=== PATIENT | female | born 1965 | race Caucasian/White ===

== ENCOUNTER 2019-07-06 11:18 | Emergency (ER) | payer MEDICAID, SELFPAY ==
[2019-07-06 11:19] VITALS: BP 158/117; PULSE 90; RESP 16; TEMP 37; BMI 25.0
--- NOTE | 2019-07-06 12:09 | ED.VISSUMM ---
- ER Visit Summary Date of Service: 07/06/19 Chief Complaint: Back pain History of Present Illness: The patient is a 54 F who presents with back pain that has been getting worse over the past 3 days. Patient states she has a history of sciatica and states this feels similar to prior exacerbations of her sciatica. Patient states the pain is over the left lower lumbar area and radiates down her left leg. Patient denies any paresthesias or weakness. Patient denies any bowel or bladder changes. Patient denies any saddle anesthesia. Patient denies any direct trauma but states she was sitting on the basement floor helping her grandson put a model train together recently. Physical Examination: Vital signs are stable. Patient is afebrile. Patient is in no acute distress. Musculoskeletal exam reveals tenderness and mild spasm over the left lumbar paraspinal muscles and sciatic notch. There is no midline tenderness. There is no bony crepitance or step-off. Range of motion was limited in all motions of the lumbar spine secondary to pain. Strength is 5/5 bilaterally lower extremities. There are no sensory deficits noted. Deep tendon reflexes are 2+/4 bilaterally in the lower extremities. Emergency Department Course and Treatment: Patient was given injections of Toradol and Norflex here. Patient was given a prescription for ibuprofen 800 mg. Patient was instructed to take this every 8 hours as needed for pain. Patient was instructed to use ice to the area. Patient was instructed to follow-up with her primary care physician in 5 to 7 days. Patient understood and was agreeable with the plan. All questions were answered. Disposition: Discharge home Impression: Sciatica This note was generated with [employer] dictation software. It may contain incorrect words, spelling, and punctuation that were not noted in review of the chart prior to signing ED Disposition - Plan for ED Patient: Disposition: Home or Assisted Living Diagnosis: Sciatica Instructions: BACK PAIN w/ SCIATICA Prescriptions: Ibuprofen 800 mg PO Q8H PRN PRN #20 tab PRN Reason: Pain Score 1-10/10 Prescription Printed Referrals: Care Physician,No Primary [Primary Care Provider] -
[2019-07-06 12:25] VITALS: O2SAT 97
[2019-07-06] MEDS: Ketorolac 60 MG/2 ML Vial IM (12:25)
[2019-07-06] MEDS: Orphenadrine 60 MG/2 ML Ampul IM (12:25)
[2019-07-06 12:28] VITALS: RESP 18
== END 2019-07-06 12:53 | disposition home or self-care (01) ==
PROVIDERS: Emergency Provider Emergency Medicine
DX: M54.42 Lumbago with sciatica, left side (principal); F17.200 Nicotine dependence, unspecified, uncomplicated
CPT/HCPCS: 94760; 96372; 99282

== ENCOUNTER 2020-09-15 13:41 | Emergency (ER) | payer MEDICAID, SELFPAY ==
[2020-09-15 13:43] VITALS: BP 153/89; PULSE 96; RESP 20; TEMP 36.1; O2SAT 96; BMI 26.2
--- NOTE | 2020-09-15 14:16 | EDS_ITS ---
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 States she got a recent Covid vaccination. States she developed sores in her mouth for which he put her on antibiotic. She took her antibiotic yesterday and fell he got stuck in the bottom of her esophagus. She had nausea and vomiting. She states she is able to swallow liquids but it feels like there is something in the base of her esophagus. She denies any fever. Prior similar symptoms: No Recent Illness/Hospitalization: No PFSH PFSH Home Medications ibuprofen 800 mg PO Q8H PRN PRN #20 tab 07/06/19 [Rx Last Taken Unknown] omeprazole 40 mg PO DAILY #30 cap 09/15/20 [Rx Last Taken Unknown] Allergy/AdvReac Type Severity Reaction Status Date / Time latex Allergy Rash Verified 09/15/20 13:42 Social History Smoking Status: Current every day smoker ROS ROS ED Review of Systems ROS Unobtainable: Denies due to encephalopathy Constitutional Constitutional ED: Denies chills or fever(s) Eyes Eyes: Denies change in vision ENT ENT ED: Denies rhinorrhea or sore throat Cardiovascular Cardiovascular: Denies chest pain or palpitations Respiratory/Chest Respiratory/Chest: Denies cough or dyspnea Gastrointestinal Gastrointestinal: Reports diarrhea, nausea and vomiting Genitourinary Genitourinary ED: Denies dysuria or hematuria Musculoskeletal Musculoskeletal: Denies arthralgias or myalgias Integumentary Denies rash Neurologic Neurologic: Denies weakness Psychiatric Psychiatric: Denies suicidal thoughts Endocrine Endocrinology: Denies polydipsia Allergic/Immunologic Allergic/Immunologic ED: Denies urticaria EXAM Physical Exam Narrative Exam Narrative: Middle-aged female no acute distress. Vital signs are stable afebrile. I gave the patient a glass of water and she was able to swallow without any difficulty. No trouble breathing. No vomiting. No change in her voice. She has completely normal oral mucous membranes. There is no lesions. No stridor. No drooling. She swallowed a glass of water easily. Const Vital Signs: 09/15/20 13:43 Temperature 97 F L Temperature Source Temporal Pulse Rate 96 Respiratory Rate 20 H Blood Pressure 153/89 H Blood Pressure Mean 110 Pulse Ox 96 Oxygen Delivery Method Room Air Positive well nourished and well developed General Appearance ED: well developed HEENT trauma and tenderness Eyes PERRL and EOMs intact bilaterally Neck no lymphadenopathy, supple and no JVD Chest Wall inspection of chest normal Resp normal respiratory effort and clear to auscultation bilaterally Cardio regular rate, regular rhythm and no murmurs GI normal to inspection, nondistended, normoactive bowel sounds, non-tender, non- distended and no masses Auscultation: normoactive bowel sounds Palpation: soft Back/Spine no CVA tenderness General Back: Negative for CVA tenderness Extremity normal to inspection General Extremety ED: Yes tenderness Neuro oriented x3 and CN's II-XII intact bilaterally Sensorium / Orientation: alert Psych mental status grossly normal Mood & Affect: anxious Skin no rashes or lesions noted and no wounds MDM MDM MDM Narrative Medical decision making narrative: Patient had trouble swallowing a pill. However she can swallow now easily. She is having no trouble breathing. She will be placed on a gastroesophageal reflux medication and outpatient follow-up. She will be referred to a primary care physician because at this time she has none. Discharge Plan Triage Chief Complaint: Foreign Body ED Provider: Kayden Oneill Dx/Rx/DC Orders Instructions: ED Esophageal Foreign Body, Resolved Prescriptions: New omeprazole 20 mg capsule,delayed release(DR/EC) 40 mg PO DAILY Qty: 30 RF: 0 No Action ibuprofen 800 MG tablet 800 mg PO Q8H PRN PRN (Reason: Pain Score 1-10/10) Qty: 20 RF: 0 Primary Care Provider: Care Physician,No Primary Referrals: Lindy Nelson MD [STAFF PHYSICIAN] - As soon as possible Care Physician,No Primary [Primary Care Provider] - Activity Restrictions/Additional Instructions: If you continue trouble swallowing call and follow-up with Dr. Lindy Nelson and she can discuss with you possible evaluation such as upper endoscopy. Continue the Prilosec daily which should help with reflux and should help with the symptoms. Return if unable to swallow. Disposition Disposition: Home, self care
[2020-09-15 14:41] VITALS: BP 153/89; PULSE 96; RESP 18; O2SAT 96
== END 2020-09-15 14:42 | disposition home or self-care (01) ==
PROVIDERS: Emergency Provider Emergency Medicine
DX: T18.198A Other foreign object in esophagus causing other injury, initial encounter (principal); X58.XXXA Exposure to other specified factors, initial encounter; Y93.9 Activity, unspecified; Y92.9 Unspecified place or not applicable; F17.200 Nicotine dependence, unspecified, uncomplicated; Z85.831 Personal history of malignant neoplasm of soft tissue
CPT/HCPCS: 99282

== ENCOUNTER → 2021-10-09 | Outpatient (CLI) | payer MEDICAID, SELFPAY ==
[2021-10-09 16:33] LABS: Absolute Lymphocyte Count 1.53 X10^3/uL (0.83-4.51); Absolute Neutrophil Count 4.7 X10^3/uL (2.0-7.7); Basophil# 0.06 X10^3/uL; Basophil% 0.9 % (0-1); Eosinophil# 0.07 X10^3/uL; Hematocrit 47.8 % (37-47); Hemoglobin 15.7 g/dL (12.0-15.0); Lymphocyte # 1.53 X10^3/ul (0.83-4.51); Lymphocyte % 21.9 % (19-41); Mean Corp Hgb Conc 32.8 g/dL (32-36); Mean Corpuscular Hgb 30.3 pg (27.0-32.0); Mean Corpuscular Volume 92.3 fL (81-99); Mean Platelet Vol. 10.5 fl (6.2-12.0); Monocyte# 0.58 X10^3/uL; Monocyte% 8.3 % (0-10); NRBC Flagged by Analyzer 0 % (0-5); Neutrophil # 4.73 X10^3/uL (2.7-7.7); Neutrophil % 67.5 % (47-70); Platelet Count 221 K/mm3 (150-450); RBC Distribution Width CV 12.6 % (11.6-14.6); Red Blood Count 5.18 M/mm3 (4.2-5.4)
[2021-10-09 20:47] LABS: ALB/GLOB Ratio 1.4 RATIO (0.9-2.4); AST(SGOT) 23 U/L (15-37); Alanine Aminotransfer ALT/SGPT 32 U/L (13-56); Albumin, Serum 3.8 g/dL (3.2-5.0); Alkaline Phosphatase 109 U/L (45-117); Anion Gap 6 (5-15); BUN 25 mg/dL (7-18); BUN/Creat Ratio 22.1 RATIO (10-20); Calcium,Total 9.5 mg/dL (8.5-10.1); Chloride 109 mmol/L (98-107); Cholesterol 192 mg/dL (200); Creatinine, Serum 1.13 mg/dL (0.55-1.02); EST Glomerular Filtration Rate 53 mL/min (>60); Est Glom Filt Rate - Afr Amer 64 mL/min (>60); Globulin 2.7 g/dL (2.2-4.2); Glucose 93 mg/dL (74-106); High Density Lipoprotein 77 mg/dL; Potassium 4.2 mmol/L (3.5-5.1); Protein, Total 6.5 g/dL (6.4-8.2); Sodium Level 144 mmol/L (136-145); Triglycerides 66 mg/dL; Very Low Density Lipoprotein 13 mg/dL (5-40)
== END | disposition home or self-care (01) ==
LOC: BIMLAB 15:34
PROVIDERS: PCP Internal Medicine; Referring Provider Internal Medicine; Visit Provider Internal Medicine
DX: I10 Essential (primary) hypertension (principal)
CPT/HCPCS: 36415; 80053; 80061; 85025

== ENCOUNTER → 2022-07-09 | Outpatient (CLI) | payer MEDICAID, SELFPAY ==
--- NOTE | 2022-07-10 13:48 | PFT ---
INTRODUCTION: The patient is a 57-year-old female that presents for pulmonary function studies secondary to a diagnosis of shortness of breath. Respiratory therapy reported good patient effort. Bronchodilators were used during testing. INTERPRETATION: Forced expiration spirometry demonstrates the presence of a severe large airways obstructive ventilatory defect. There was a significant response to aerosolized bronchodilators. Spirograms are of good quality but do not plateau indicating slow emptying of the lungs. Body plethysmography was performed and revealed an elevated RV to 186% of predicted, indicative of underlying air trapping. Diffusing capacity by single breath CO was within normal limits. IMPRESSION: Partially reversible severe large airways obstructive ventilatory defect with associated air trapping.
== END | disposition home or self-care (01) ==
LOC: PSN 12:30
PROVIDERS: PCP Internal Medicine; Referring Provider Internal Medicine; Visit Provider Internal Medicine
DX: R06.02 Shortness of breath (principal); Z72.0 Tobacco use; R00.2 Palpitations
CPT/HCPCS: 93225; 93226; 94060; 94726; 94729

== ENCOUNTER 2022-07-18 13:16 | Emergency (ER) | payer MEDICAID, SELFPAY ==
[2022-07-18 13:16] VITALS: BP 157/93; PULSE 75; RESP 16; TEMP 36.6; O2SAT 99; BMI 22.7
--- NOTE | 2022-07-18 14:51 | ED.RN ---
PT NO LONGER IN THE LOBBY, RESTROOM, OR OUTSIDE WHEN HER NAME WAS CALLED TO BE SEEN.
== END 2022-07-18 14:05 | disposition left against medical advice (07) ==
LOC: ED 14:52
PROVIDERS: PCP Internal Medicine
DX: S06.9XAA Unspecified intracranial injury with loss of consciousness status unknown, initial encounter (principal)

== ENCOUNTER → 2022-11-21 | Outpatient (CLI) | payer MEDICAID, SELFPAY ==
[2022-11-21 16:42] LABS: Absolute Lymphocyte Count 1.28 X10^3/uL (0.83-4.51); Absolute Neutrophil Count 4.8 X10^3/uL (2.0-7.7); Basophil# 0.08 X10^3/uL; Basophil% 1.2 % (0-1); Eosinophil# 0.06 X10^3/uL; Eosinophils% 0.9 % (0-5); Hematocrit 47.5 % (37-47); Hemoglobin 15.8 g/dL (12.0-15.0); Lymphocyte # 1.28 X10^3/ul (0.83-4.51); Lymphocyte % 18.9 % (19-41); Mean Corp Hgb Conc 33.3 g/dL (32-36); Mean Corpuscular Volume 90.3 fL (81-99); Mean Platelet Vol. 10.5 fl (6.2-12.0); Monocyte# 0.51 X10^3/uL; Monocyte% 7.5 % (0-10); NRBC Flagged by Analyzer 0 % (0-5); Neutrophil # 4.83 X10^3/uL (2.7-7.7); Neutrophil % 71.4 % (47-70); Platelet Count 219 K/mm3 (150-450); RBC Distribution Width CV 13.1 % (11.6-14.6); Red Blood Count 5.26 M/mm3 (4.2-5.4); White Blood Count 6.8 K/mm3 (4.4-11.0)
[2022-11-21 16:56] LABS: ALB/GLOB Ratio 1.1 RATIO (0.9-2.4); AST(SGOT) 23 U/L (15-37); Alanine Aminotransfer ALT/SGPT 41 U/L (13-56); Albumin, Serum 3.7 g/dL (3.2-5.0); Alkaline Phosphatase 139 U/L (45-117); Anion Gap 8 (5-15); BUN 22 mg/dL (7-18); BUN/Creat Ratio 23.5 RATIO (10-20); Calcium,Total 9.2 mg/dL (8.5-10.1); Chloride 107 mmol/L (98-107); Cholesterol 172 mg/dL (200); Creatinine, Serum 0.94 mg/dL (0.55-1.02); EST Glomerular Filtration Rate 66 mL/min (>60); Est Glom Filt Rate - Afr Amer 80 mL/min (>60); Globulin 3.3 g/dL (2.2-4.2); Glucose 159 mg/dL (74-106); High Density Lipoprotein 95 mg/dL; Potassium 4.2 mmol/L (3.5-5.1); Sodium Level 140 mmol/L (136-145); Triglycerides 63 mg/dL; Very Low Density Lipoprotein 13 mg/dL (5-40)
[2022-11-22 15:06] LABS: Hemoglobin A1c 5.5 % (3.8-5.6)
[2022-11-23 05:07] LABS: Alpha Antitrypsin Serum 170 mg/dL (101-187)
== END | disposition home or self-care (01) ==
LOC: BIMLAB 14:52
PROVIDERS: PCP Internal Medicine; Referring Provider Internal Medicine; Visit Provider Internal Medicine
DX: I10 Essential (primary) hypertension (principal); J44.9 Chronic obstructive pulmonary disease, unspecified; R73.9 Hyperglycemia, unspecified
CPT/HCPCS: 36415; 80053; 80061; 82103; 83036; 85025

== ENCOUNTER → 2023-02-10 | Outpatient (CLI) | payer MEDICAID, SELFPAY ==
--- NOTE | 2023-02-10 14:14 | RAD_ITS ---
STUDY: X-RAY - RIGHT ANKLE REASON FOR EXAM: Female, 57 years old. Pain and swelling following injury. TECHNIQUE: 3 view(s) of the ankle. COMPARISON: None. FINDINGS: Normal visualized distal tibia and fibula. Normal medial and lateral malleoli. Normal tibiotalar articulation and ankle mortise. Normal visualized talus and calcaneus. The visualized subtalar, talonavicular, calcaneocuboid and tarsal articulations are normal. The soft tissue structures are unremarkable. RAD/Ankle min 3 Views IMPRESSION: Normal x-ray examination of the ankle. Electronically Signed: Randolph Pineda MD at 14:37 EDT ,
--- NOTE | 2023-02-10 14:15 | RAD_ITS ---
STUDY: X-RAY - RIGHT FOOT CLINICAL: Female, 57 years old. Pain and swelling following injury. TECHNIQUE: 3 view(s) of the foot. COMPARISON: None. FINDINGS: Normal talus, calcaneus, and tarsal bones. Normal visualized subtalar, talonavicular, calcaneocuboid, tarsal and tarsometatarsal articulations. Normal metatarsi. There is degenerative arthrosis of the metatarsophalangeal joint of the hallux . Normal tibial and fibular sesamoid bones. Normal interphalangeal joint of the great toe. Normal phalanges of the great toe. Normal second through fifth metatarsophalangeal joints. Normal interphalangeal joints and phalanges of the lesser toes. The soft tissue structures are unremarkable. RAD/Foot min 3 Views IMPRESSION: Degenerative changes at the first metatarsophalangeal joint. Electronically Signed: Randolph Pineda MD at 14:38 EDT ,
== END | disposition home or self-care (01) ==
LOC: MTRAD 14:13
PROVIDERS: PCP Internal Medicine; Referring Provider Physician Assistant; Visit Provider Physician Assistant
DX: S99.921A Unspecified injury of right foot, initial encounter (principal)
CPT/HCPCS: 73610; 73630

== ENCOUNTER 2023-06-02 22:39 | Emergency (ER) | payer MEDICAID, SELFPAY ==
[2023-06-02 22:40] VITALS: BP 147/91; PULSE 103; RESP 18; TEMP 36.3; O2SAT 96; BMI 27.3
--- NOTE | 2023-06-02 23:06 | EKG12_ITS ---
Test Reason : SOB Blood Pressure : / mmHG Vent. Rate : 078 BPM Atrial Rate : 078 BPM P-R Int : 148 ms QRS Dur : 084 ms QT Int : 364 ms P-R-T Axes : 073 073 082 degrees QTc Int : 414 ms Normal sinus rhythm with sinus arrhythmia Nonspecific ST and T wave abnormality Abnormal ECG Confirmed by JEOVANY RODGERS, BETTY ([id number]), graphics editor DELORES CARVALHO ([id number]) on 06/04/2023 9:19:06 AM Referred By: Confirmed By:BETTY THAYER MD
[2023-06-02 23:22] VITALS: RESP 16; O2SAT 95
[2023-06-02 23:30] LABS: Absolute Neutrophil Count 7.7 X10^3/uL (2.0-7.7); Eosinophil# 0.02 X10^3/uL; Eosinophils% 0.2 % (0-5); Hematocrit 44.8 % (37-47); Lymphocyte % 11.4 % (19-41); Mean Corp Hgb Conc 33.5 g/dL (32-36); Mean Corpuscular Hgb 29.9 pg (27.0-32.0); Mean Corpuscular Volume 89.2 fL (81-99); Mean Platelet Vol. 10.1 fl (6.2-12.0); Monocyte# 0.75 X10^3/uL; Monocyte% 7.7 % (0-10); NRBC Flagged by Analyzer 0 % (0-5); Neutrophil # 7.68 X10^3/uL (2.7-7.7); Neutrophil % 79.4 % (47-70); Platelet Count 222 K/mm3 (150-450); RBC Distribution Width SD 42.5 fl (35.1-43.9); Red Blood Count 5.02 M/mm3 (4.2-5.4); White Blood Count 9.7 K/mm3 (4.4-11.0)
[2023-06-02 23:48] LABS: Anion Gap 9 (5-15); BUN 24 mg/dL (7-18); BUN/Creat Ratio 22.4 RATIO (10-20); Calcium,Total 10.2 mg/dL (8.5-10.1); Chloride 107 mmol/L (98-107); Creatinine, Serum 1.07 mg/dL (0.55-1.02); EST Glomerular Filtration Rate 56 mL/min (>60); Est Glom Filt Rate - Afr Amer 68 mL/min (>60); Estimated Creatinine Clearance 62.81 ml/min; Glucose 106 mg/dL (74-106); Potassium 3.9 mmol/L (3.5-5.1); Sodium Level 139 mmol/L (136-145)
--- NOTE | 2023-06-02 23:52 | RAD_ITS ---
INDICATION: dyspnea EXAMINATION/TECHNIQUE: X-RAY - XR Chest 2 Views COMPARISON: None. FINDINGS: LINES/DEVICES: None. LUNGS: Hyperexpanded lungs. No pulmonary edema or focal airspace consolidation. No sizable pleural effusion. No pneumothorax detected. MEDIASTINUM AND CARDIOVASCULAR STRUCTURES: Heart size within normal limits. Mediastinal contours unremarkable. BONES AND SOFT TISSUES: No acute findings. RAD/Chest PA and Lateral IMPRESSION: COPD Electronically Signed: Frank Parker MD at 0:22 EST ,
--- OUTSIDE RECORDS SUMMARY | 2023-06-02 23:54 | XMS RPT_ITS | CCD ---
Author Name Unknown Address [address] [place] [address] Organization [facility] Care Team Providers Care Booking Agent Name Role Phone JESUS CORTEZ Unavailable Unavailable ASHLEE KWOK Unavailable Unavailable HAUSTAZ DICKINSON Unavailable Unavailable NO FAMILY DOCTOR, NO FAMILY DOCTOR Unavailable Unavailable AMANAZANIN Admitting Unavailable AMA, NAZANIN Fonseca Attending Unavailable AMANAZANIN Primary Care Unavailable NO, DOCTOR ON Consulting Unavailable AMANAZANIN Admitting Unavailable AMA, NAZANIN Fonseca Attending Unavailable AMANAZANIN Primary Care Unavailable NO, DOCTOR ON Consulting Unavailable Allergies Allergy Classification Reported Allergen(s) Allergy Type Date of Onset Reaction(s) Facility (1 source) Latex; Translations: [LATEX] Propensity to adverse reactions (disorder) [facility] Repository Problems Active Problems Problem Classification Problem Date Documented Da te Episodic/Chronic Fever of unknown origin (3 sources) Fever, unspecified; Translations: [Fever, unspecified] Onset: 12-02-2019 Episodic Immunizations and screening for infectious disease (3 sources) Encounter for screening for other viral diseases; Translations: [Encounter for screening for other viral diseases] Onset: 02-15-2020 Episodic Other lower respiratory disease (1 source) Cough; Translations: [Cough] Onset: 12-02-2019 Episodic Other upper respiratory disease (1 source) Nasal congestion; Translations: [Nasal congestion] Onset: 12-02-2019 Episodic Unclassified (1 source) Rash and other nonspecific skin eruption / R21(ICD-9) Onset: 12-29-2016 Unclassified (1 source) Dermatitis, unspecified / L30.9(ICD-9) Onset: 12-29-2016 Unclassified (1 source) Latex allergy status / Z91.040(ICD-9) Onset: 12-29-2016 Unclassified (1 source) Personal history of malignant neoplasm, unspecified / Z85.9(ICD-9) Onset: 12-29-2016 Past or Other Problems Problem Classification Problem Date Documented Da te Episodic/Chronic Other skin disorders (1 source) Rash and other nonspecific skin eruption; Translations: [Rash and other nonspecific skin eruption] Onset: 12-29-2016 Episodic Results Test Name Value Interpretation Reference Range Facil ity Encounters Encounter Date Encounter Type Care Provider Facility Start: 02-15-2020 End: 02-15-[address] [facility] Start: 12-02-2019 End: 12-02-[address] [facility] Start: 08-13-2017 End: 08-13-2017 Emergency department patient visit JESUS CORTEZ Facility:B Start: 12-29-2016 End: 12-29-2016 Emergency department patient visit TAZ TREVIÑO Facility:[id number] Payers Date Payer Category Payer Medicaid [id number] 1965 Unknown [id number] 1965 Unknown [id number] Unknown [id number] Progress note 12-22-2020 Note Date & Type Note Facility 12-22-2020 Note HNO ID: [id number] Author: Leander Pope APRN.SRINATH Service: ? Author Type: Nurse Practitioner Type: Progress Notes Filed: 12/22/2020 8:10 PM Note Text: Visit Date: December 22, 2020 Patient Name: Ms.Debra Hernan Porter Date of : 1965 MRN/E #: [id number] Chief Complaint Patient presents with: Dental Problem: left upper side of mouth x2 days History of present illness Pierce Porter is a 55 year old female. Presents with complaints of left upper tooth pain that started 2 days ago. Denies having a fever, chills, aches, loss of smell or taste, or fatigue. The tooth has had drainage with foul smelling and tasting pus. She has not seen a dentist in several years. Has not taken anything at home to help with symptoms. PAIN EVALUATION 12/22/20201914 Pain Level: 7 Pain Location: Mouth Description: Aching;Radiating;Pressure Duration Amount of Time: 2 Duration Units: Days Frequency: Continuous Intervention/Comfort measure: Medication Comments: tylenol ALLERGIES Allergen Reactions - Latex No past medical history on file. No past surgical history on file. Social History Tobacco Use - Smoking status: Current Every Day Smoker Packs/day: 1.00 Types: Cigarettes - Smokeless tobacco: Never Used Substance Use Topics - Alcohol use: No - Drug use: No No family history on file. Review of Systems Constitutional: Negative for chills, fever and malaise/fatigue. HENT: Negative for congestion and sore throat. Toothache upper left Respiratory: Negative for cough and shortness of breath. Cardiovascular: Negative for chest pain and palpitations. Gastrointestinal: Negative for nausea and vomiting. Musculoskeletal: Negative for myalgias. Skin: Negative for itching and rash. Neurological: Negative for dizziness, tingling and headaches. Physical Exam Vitals and nursing note reviewed. HENT: Mouth/Throat: Eyes: Extraocular Movements: Extraocular movements intact. Pupils: Pupils are equal, round, and reactive to light. Cardiovascular: Rate and Rhythm: Normal rate and regular rhythm. Pulses: Normal pulses. Heart sounds: Normal heart sounds. Pulmonary: Effort: Pulmonary effort is normal. No respiratory distress. Breath sounds: Normal breath sounds. No wheezing. Skin: General: Skin is warm and dry. Neurological: Mental Status: She is oriented to person, place, and time. BP 126/86 Pulse 97 Temp 98.1 Resp 16 Wt 157 lb 12.8 oz (71.6kg) SpO2 98% Assessment/Plan (K08.89) Toothache (primary encounter diagnosis) -clindamycin (CLEOCIN) 300 mg capsule Take medication as ordered See dentist yarelis Follow up if signs of infection worsen Leander Pope APRN.CNP Discussed above plan with patient. Pt agreeable with above plan. [facility] Summary Purpose Family History No Family History Records FoundNo Family History Records FoundNo Family History Records FoundNo Family History Records FoundNo Family History Records Found Advance Directives No Advanced Directives Records FoundNo Advanced Directives Records FoundNo Advanced Directives Records FoundNo Advanced Directives Records FoundNo Advanced Directives Records Found Additional Source Comments INFORMATION SOURCE (unrecogn ized section and content) DATE CREATED AUTHOR AUTHOR'S ORGANSARAH ATION 11/12/2017 [facility] DATE CREATED AUTHOR AUTHOR'S ORGANIZ ATION 12/11/2019 [facility] DATE CREATED AUTHOR AUTHOR'S ORGANIZ ATION 02/18/2020 [facility] DATE CREATED AUTHOR AUTHOR'S ORGANIZ ATION 06/22/2021 [facility] FOR RECORDS PERTAINING TO PATIENTS WHO ARE OR HAVE BEEN ENROLLED IN A CHEMICAL DEPENDENCY/SUBSTANCEABUSE PROGRAM, SOME INFORMATION MAY BE OMITTED. This clinical summary was aggregated from multiple sources. Caution should be exercised in using it in the provision of clinical care. This summary normalizes information from multiple sources, and as a consequence, information in this document may materially change the coding, format and clinical context of patient data. In addition, data may be omitted in some cases. CLINICAL DECISIONS SHOULD BE BASED ON THE PRIMARY CLINICAL RECORDS. [facility] [facility]. provides no warranty or guarantee of the accuracy or completeness of information in this document.
[2023-06-03] MEDS: Ipratropium/Albuterol Sulfate 3 ML AMPUL.NEB INHALATION ×2 (00:06)
[2023-06-03 00:07] VITALS: PULSE 77; RESP 16
[2023-06-03 01:00] VITALS: O2SAT 98
--- NOTE | 2023-06-03 01:06 | EX.ED.DYSGE1 ---
HPI History of Present Illness Chief Complaint: Shortness of Breath Informant: patient and family Narrative Narrative: Patient is a 58-year-old female with past medical history of COPD and hypertension. She states she quit smoking roughly 1 year ago and was doing well but then developed/contracted COVID and since that time has had difficulty with her breathing. 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 Since that time she has had increased shortness of breath with any type of exertion and therefore comes in for evaluation. [facility] Medical History (Updated 06/03/23 @ 23:[address] Kel Hutson, DO) Back problem Blood glucose elevated Cellulitis of right ankle Cellulitis of right foot COPD (chronic obstructive pulmonary disease) Dyspnea on exertion Grief at loss of child Grief counseling Grief reaction History of COVID-19 Hypertension Palpitations Panic attack Right groin hernia Sarcoma Seasonal allergies Shortness of breath Tobacco abuse Tobacco abuse, in remission Wound of right foot Home Medications blood pressure monitor #1 ea 10/09/21 [Rx Last Taken Unknown] amlodipine 5 mg tablet See Rx Instructions .Route .COMPLEX #90 tabs 11/21/22 [Rx Last Taken Unknown] albuterol sulfate 90 mcg/actuation aerosol inhaler (ProAir HFA) 2 puff inhalation Q6H PRN shortness of breath or wheezing #8.5 grams 01/27/23 [Rx Last Taken Unknown] hydroxyzine HCl 25 mg tablet 25 mg PO TID PRN anxiety #90 tabs 03/04/23 [Rx Last Taken Unknown] budesonide-formoterol HFA 160 mcg-4.5 mcg/actuation aerosol inhaler (Symbicort) 1 puff inhalation Q12H SOB 06/02/23 [History Last Taken Unknown] bupropion HCl 150 mg 24 hr tablet, extended release 150 mg PO QAM #90 tabs 06/02/23 [Rx Last Taken Unknown] nicotine 21 mg/24 hr daily transdermal patch 1 patch transdermal Q24H 06/02/23 [History Last Taken Unknown] ipratropium 0.5 mg-albuterol 3 mg (2.5 mg base)/3 mL nebulization soln 3 ml inhalation 4X/DAY PRN PRN shortness of breath or wheezing #180 mL 06/03/23 [Rx Last Taken Unknown] nebulizer and compressor #1 ea 06/03/23 [Rx Last Taken Unknown] Allergy/AdvReac Type Severity Reaction Status Date / Time latex Allergy Rash Verified 06/02/23 22:40 Family History Mother CVA (cerebral vascular accident) Surgical History H/O: hysterectomy Social History Smoking Status: Current every day smoker tobacco type: cigarettes alcohol intake: never substance use type: does not use what type of physical activity do you participate in: walking ROS ROS ED Constitutional Constitutional ED: Denies chills or fever(s) ENT ENT ED: Denies sore throat Cardiovascular Cardiovascular: Denies chest pain, palpitations or racing heartbeat Respiratory/Chest Respiratory/Chest: Reports cough, dyspnea and dyspnea on exertion Gastrointestinal Gastrointestinal: Denies abdominal pain, diarrhea, nausea or vomiting Genitourinary Genitourinary ED: Denies dysuria Musculoskeletal Musculoskeletal: Denies myalgias Integumentary Denies rash Neurologic Neurologic: Denies headache(s) Hematologic/Lymphatic Hematologic/Lymphatic: Denies easy bleeding or easy bruising EXAM Physical Exam Const Vital Signs: 06/03/23 00:07 06/03/23 01:00 Pulse Rate 77 Respiratory Rate 16 Pulse Ox 98 Positive well nourished and well developed General Appearance ED: well developed; Negative for pallor HEENT Reports moist mucous membranes HEENT Narrative: No tongue or lip swelling no oral lesions no airway edema or compromise Eyes PERRL and EOMs intact bilaterally Neck supple and no JVD Chest Wall palpation of chest normal Resp normal respiratory effort Resp Narrative: Breath sounds are diminished throughout with diffuse expiratory wheeze but no nasal flaring retractions tachypnea or accessory muscle use Cardio regular rate and regular rhythm Extremity normal to inspection Extremity Narrative: No asymmetric edema no pitting edema negative Homans' sign bilaterally Neuro oriented x3, CN's II-XII intact bilaterally and no sensory deficits noted Sensorium / Orientation: alert Motor Exam: strength 5/5 throughout Psych mental status grossly normal Skin no rashes or lesions noted General Skin Exam: Negative for pallor MDM MDM MDM Narrative Medical decision making narrative: Patient presented to the ER hypertensive but otherwise with stable vitals. She reported being exposed to a chemical/dust and then had increased shortness of breath not responding to her home medications. Differential diagnosis is COPD exacerbation secondary to allergen/chemical pneumonitis versus pneumonia versus pneumothorax versus potential acute coronary syndrome. Secondary to this basic labs were obtained as well as EKG and chest x-ray. EKG revealed no signs of dysrhythmia or cardiac ischemia and chest x-ray revealed no signs of acute lung pathology. After receiving 2 DuoNeb's she had improvement in her breath sounds and reported feeling better. We discussed steroid use as well but the patient states she cannot take these based on side effects and therefore they will be held especially as she has had improvement with nebulizer treatment. At this time she is not hypoxic or requiring supplemental oxygen and her workup does not reveal any acute pathology so she is otherwise safe for discharge History & Record Review Discussion w/independent historian: Patient and Family Lab Data Attestation: I reviewed the patient's lab results. Labs: Laboratory Results - last 24 hr 06/02/23 23:18 WBC 9.7 RBC 5.02 Hgb 15.0 Hct 44.8 MCV 89.2 MCH 29.9 MCHC 33.5 RDW Std Deviation 42.5 RDW Coeff of Leobardo 13.0 Plt Count 222 MPV 10.1 Immature Gran % (Auto) 0.300 Neut % (Auto) 79.4 H Lymph % (Auto) 11.4 L Nolan % (Auto) 7.7 Eos % (Auto) 0.2 Baso % (Auto) 1.0 Absolute Neuts (auto) 7.7 Absolute Lymphs (auto) 1.10 Nucleated RBC % 0 Sodium 139 Potassium 3.9 Chloride 107 Carbon Dioxide 23.0 Anion Gap 9 BUN 24 H Creatinine 1.07 H Estim Creat Clear Calc 62.81 Est GFR (MDRD) Af Amer 68 Est GFR (MDRD) Non-Af 56 L BUN/Creatinine Ratio 22.4 H Glucose 106 Calcium 10.2 H Radiography Diagnostic Testing: Clinical Impression(s) from Imaging Studies Chest X-Ray 06/02/23 23:52 IMPRESSION: COPD Electronically Signed: Frank Parker MD at 0:22 EST , Chest x-ray as interpreted by the emergency medicine physician reveals changes consistent with COPD without acute infiltrate pneumothorax or pleural effusion Discharge Plan Triage Chief Complaint: Shortness of Breath ED Provider: Kel Hutson Dx/Rx/DC Orders Clinical Impression: Acute exacerbation of chronic obstructive pulmonary disease, Acute chemical pneumonitis, Hypertension Instructions: COPD: Wheezing and Chest Tightness, ED Understanding Hypersensitivity Pneumonitis Prescriptions: New ipratropium-albuterol 0.5 mg-3 mg(2.5 mg base)/3 mL solution for nebulization 3 ml inhalation 4X/DAY PRN PRN (Reason: shortness of breath or wheezing) Qty: 180 0RF No Action (DME) blood pressure monitor Kit See Rx Instructions .MEDSUPPLY Qty: 1 0RF Rx Instructions: Check blood pressure daily for hypertension I10 amlodipine 5 mg tablet See Rx Instructions .ROUTE .COMPLEX Qty: 90 1RF Dose Instruction: TAKE 1 TABLET BY MOUTH EVERY DAY Rx Instructions: TAKE 1 TABLET BY MOUTH EVERY DAY budesonide-formoterol [Symbicort] 160-4.5 mcg/actuation HFA aerosol inhaler 1 puff INHALATION Q12H Patient Comments: INHALE TWO PUFFS BY MOUTH EVERY TWELVE HOURS nicotine 21 mg/24 hr patch 24 hour 1 patch transdermal Q24H albuterol sulfate [ProAir HFA] 90 mcg/actuation HFA aerosol inhaler 2 puff inhalation Q6H PRN (Reason: shortness of breath or wheezing) Qty: 8.5 3RF hydroxyzine HCl 25 mg tablet 25 mg PO TID PRN (Reason: anxiety) Qty: 90 2RF bupropion HCl 150 mg tablet extended release 24 hr 150 mg PO QAM Qty: 90 1RF (DME) nebulizer and compressor Device See Rx Instructions .Route Qty: 1 0RF Rx Instructions: As directed Primary Care Provider: Rowdy Jiang Referrals: Rowdy Jiang MD [Primary Care Provider] - Disposition Disposition: Home, Self Care Discharge Date/Time: 06/03/23 01:33 Capacity Legal Examiner Rating Clerk Reflex Medical hold order details:: IF a medical hold is selected below, a suggested order for a MEDICAL HOLD will reflex upon signing the document. Next of kin: [place] law dictates a PRIORITY LIST for identifying legal decision-maker/legal next of kin in the following order (LNOK): 1st: The patient?s legal guardian, if any 2nd: The patient's spouse (if status is questionable, consult Risk Management) 3rd: The patient?s adult child(jennifer) (majority, if multiple children) 4th: The patient?s parents 5th: The patient?s adult siblings (majority, if multiple children siblings)
== END 2023-06-03 01:33 | disposition home or self-care (01) ==
PROVIDERS: Emergency Provider Emergency Medicine; PCP Internal Medicine; Visit Provider Emergency Medicine
DX: T65.891A Toxic effect of other specified substances, accidental (unintentional), initial encounter (principal); J68.0 Bronchitis and pneumonitis due to chemicals, gases, fumes and vapors; I10 Essential (primary) hypertension; Z79.899 Other long term (current) drug therapy; Z90.710 Acquired absence of both cervix and uterus; F17.290 Nicotine dependence, other tobacco product, uncomplicated
CPT/HCPCS: 71046; 80048; 85025; 93005; 94640; 94760; 99284; A4216

== ENCOUNTER → 2023-06-20 | Outpatient (CLI) | payer MEDICAID, SELFPAY ==
--- OUTSIDE RECORDS SUMMARY | 2023-06-20 18:34 | XMS RPT_ITS | CCD ---
Author Name Unknown Address [address] [place] [address] Organization [facility] Care Team Providers Care Big Data Solutions Architect Name Role Phone JESUS CORTEZ Unavailable Unavailable ASHLEE KWOK Unavailable Unavailable HAUSTAZ DICKINSON Unavailable Unavailable NO FAMILY DOCTOR, NO FAMILY DOCTOR Unavailable Unavailable AMANAZANIN ELLIOTT Admitting Unavailable AMA, NAZANIN Fonseca Attending Unavailable AMANAZANIN Primary Care Unavailable NO, DOCTOR ON Consulting Unavailable AMANAZANIN Admitting Unavailable AMA, NAZANIN Fonseca Attending Unavailable AMANAZANIN Primary Care Unavailable NO, DOCTOR ON Consulting Unavailable Allergies Allergy Classification Reported Allergen(s) Allergy Type Date of Onset Reaction(s) Facility (1 source) Latex; Translations: [LATEX] Propensity to adverse reactions (disorder) [facility] Repository Problems Active Problems Problem Classification Problem [...] Start: 02-15-2020 End: 02-15-2020 Patient encounter procedure [facility] Start: 12-02-2019 End: 12-02-2019 Patient encounter procedure [facility] Start: 08-13-2017 End: 08-13-2017 Emergency department patient visit JESUS CORTEZ Facility:B Start: 12-29-2016 End: 12-29-2016 Emergency department patient visit TAZ TREVIÑO Facility:[id number] Payers Date Payer Category Payer Medicaid [id number] 1965 Unknown [id number] 1965 Unknown [id number] [id number] Unknown [id number] Progress note 12-22-2020 Note Date & Type Note Facility 12-22-2020 Note HNO ID: [id number] Author: Leander Pope APRN.SRINATH Service: ? Author Type: Nurse Practitioner Type: Progress Notes Filed: 12/22/2020 8:10 PM Note Text: Visit Date: December 22, 2020 Patient Name: Ms.Debra Hernan Porter Date of : 1965 MRN/E #: [id number] Chief Complaint Patient presents with: Dental Problem: [...] with patient. Pt agreeable with above plan. [facility] Summary Purpose Family History No Family History [...] DATE CREATED AUTHOR AUTHOR'S ORGANSARAH ATION 11/12/2017 [facility] DATE CREATED AUTHOR AUTHOR'S ORGANIZ ATION 12/11/2019 [facility] DATE CREATED AUTHOR AUTHOR'S ORGANIZ ATION 02/18/2020 [facility] DATE CREATED AUTHOR AUTHOR'S ORGANIZ ATION 06/22/2021 [facility] FOR RECORDS PERTAINING TO PATIENTS WHO ARE [...] BE BASED ON THE PRIMARY CLINICAL RECORDS. [employer] [facility]. provides no warranty or guarantee of the accuracy or completeness of information in this document.
== END | disposition home or self-care (01) ==
PROVIDERS: PCP Internal Medicine; Visit Provider Physician Assistant Surgical
DX: N39.0 Urinary tract infection, site not specified (principal)
CPT/HCPCS: 87086; 87088

== ENCOUNTER → 2023-06-23 | Outpatient (CLI) | payer MEDICAID, SELFPAY ==
[2023-06-23 14:17] LABS: Mucous, Urine 0 SEEN /hpf (<or=2+); Red Blood Cells-Urine 0 SEEN /hpf (0-5)
[2023-06-23 15:31] LABS: Color, Urine Yellow (Yellow); Glucose, Dipstick Normal (Normal); Ketone-Dipstick Negative (Negative); Leukocyte Esterase-Dipstick 100 /ul (Negative); Nitrite-Dipstick Negative (Negative); Occult Blood-Urine Negative /ul (Negative); Protein-Dipstick 15 mg/dl (Negative); Specific Gravity, Urine 1.015 (1.002-1.030); Urine Bilirubin Dipstick Negative (Negative); Urine Clarity Clear (Clear); Urine Urobilinogen Normal (Normal); Urine pH 6.5 (5.0 - 8.0)
[2023-06-23 16:02] LABS: Bacteria 1+ /hpf (None Seen); Squamous Epithelial Cells - UA 0-5 SEEN /hpf (5-10); White Blood Cells 5-10 SEEN /hpf (0-5)
--- OUTSIDE RECORDS SUMMARY | 2023-06-23 16:02 | XMS RPT_ITS | CCD ---
Author Name Unknown Address [address] [place] [address] Organization [facility] Care Team Providers Care Print Production Coordinator Name Role Phone JESUS CORTEZ Unavailable Unavailable [...] Translations: [LATEX] Propensity to adverse reactions (disorder) [facility] Repository Problems Active Problems Problem Classification [...] End: 02-15-2020 Patient encounter procedure [facility] Start: 12-02-2019 End: 12-02-2019 Patient encounter procedure [facility] Start: 08-13-2017 End: 08-13-2017 Emergency department patient visit JESUS CORTEZ Facility:B Start: 12-29-2016 End: 12-29-2016 Emergency department patient visit TAZ TREVIÑO Facility:[id number] Payers Date Payer Category Payer Medicaid [id number] 1965 Unknown [id number] [id number] [id number] 1965 Unknown [id number] [id number] Unknown [id number] Progress note 12-22-2020 Note Date & Type Note Facility 12-22-2020 Note HNO ID: [id number] Author: Leander Pope APRN.SRINATH Service: ? Author Type: Nurse Practitioner Type: Progress Notes Filed: 12/22/2020 8:10 PM Note Text: Visit Date: December 22, 2020 Patient Name: Ms.Debra Hernan Porter Date of : 1965 MRN/E #: [id number] Chief Complaint Patient presents with: Dental Problem: [...] with patient. Pt agreeable with above plan. [facility] Summary Purpose Family History No Family History [...] DATE CREATED AUTHOR AUTHOR'S ORGANSARAH ATION 11/12/2017 [facility] DATE CREATED AUTHOR AUTHOR'S ORGANIZ ATION 12/11/2019 [facility] DATE CREATED AUTHOR AUTHOR'S ORGANIZ ATION 02/18/2020 [facility] DATE CREATED AUTHOR AUTHOR'S ORGANIZ ATION 06/22/2021 [facility] FOR RECORDS PERTAINING TO PATIENTS WHO ARE [...] BE BASED ON THE PRIMARY CLINICAL RECORDS. [employer] [facility]. provides no warranty or guarantee of the accuracy or completeness of information in this document.
== END | disposition home or self-care (01) ==
LOC: LABSPEC 14:15
PROVIDERS: PCP Internal Medicine; Visit Provider Internal Medicine
DX: N39.0 Urinary tract infection, site not specified (principal)
CPT/HCPCS: 81001; 87086; 87088

== ENCOUNTER → 2023-06-30 | Outpatient (CLI) | payer MEDICAID, SELFPAY ==
--- NOTE | 2023-06-30 14:55 | RAD_ITS ---
STUDY: X-RAY CHEST REASON FOR EXAM: Female, 58 years old. Chest tightness/Shortness of breath TECHNIQUE: PA and lateral views of the chest. COMPARISON: 06/02/2023. FINDINGS: There is mild fullness of the perihilar markings, right more than left with fullness of the peribronchial soft tissues which may indicate bronchitis/asthma. There is minimal linear right perihilar and right basilar atelectasis. Remainder of the lung soto are clear. There is no demonstrated pleural abnormality. Normal size heart. Normal mediastinum and pavithra. Normal visualized pulmonary arteries. There is atherosclerotic tortuosity of the aortic arch and descending thoracic aorta. There are mild degenerative changes of the visualized thoracic spine. Normal visualized ribs, clavicles, and shoulders. There is no demonstrated abnormality of the visualized soft tissue structures of the upper abdomen. RAD/Chest PA and Lateral IMPRESSION: Possible underlying bronchitis/asthma with minimal right perihilar and right basilar atelectasis. Otherwise no acute cardiopulmonary disease. Electronically Signed: Yanet Dowd MD at 17:07 [facility] ,
--- OUTSIDE RECORDS SUMMARY | 2023-06-30 19:22 | XMS RPT_ITS | CCD ---
Author Name Unknown Address [address] [place] [address] Organization [facility] Care Team Providers Care Trichologist Name Role Phone JESUS CORTEZ Unavailable Unavailable [...] Translations: [LATEX] Propensity to adverse reactions (disorder) [facility] Repository Problems Active Problems Problem Classification [...] Start: 02-15-2020 End: 02-15-2020 Patient encounter procedure [facility] Start: 12-02-2019 End: 12-02-2019 Patient encounter procedure [facility] Start: 08-13-2017 End: 08-13-2017 Emergency department patient visit JESUS CORTEZ Facility:B Start: 12-29-2016 End: 12-29-2016 Emergency department patient visit TAZ TREVIÑO Facility:1637 Payers Date Payer Category Payer Medicaid [id number] 1965 Unknown [id number] [id number] [id number] 1965 Unknown [id number] [id number] [id number] Unknown [id number] Progress note 12-22-2020 Note Date & Type Note Facility 12-22-2020 Note HNO ID: [id number] Author: Leander Pope APRN.SRINATH Service: ? Author Type: Nurse Practitioner Type: Progress Notes Filed: 12/22/2020 8:10 PM Note Text: Visit Date: December 22, 2020 Patient Name: Ms.Debra Hernan Porter Date of : 1965 MRN/E #: [id number] Chief Complaint Patient presents with: Dental Problem: [...] patient. Pt agreeable with above plan. [facility] Summary Purpose Family History No Family [...] DATE CREATED AUTHOR AUTHOR'S ORGANSARAH ATION 11/12/2017 [facility] DATE CREATED AUTHOR AUTHOR'S ORGANIZ ATION 12/11/2019 [facility] DATE CREATED AUTHOR AUTHOR'S ORGANIZ ATION 02/18/[address] [facility] DATE CREATED AUTHOR AUTHOR'S ORGANIZ ATION 06/22/2021 [facility] FOR RECORDS PERTAINING TO PATIENTS WHO [...] BE BASED ON THE PRIMARY CLINICAL RECORDS. [employer] [facility]. provides no warranty or guarantee of the accuracy or completeness of information in this document.
== END | disposition home or self-care (01) ==
PROVIDERS: PCP Internal Medicine; Referring Provider Internal Medicine; Visit Provider Internal Medicine
DX: J44.9 Chronic obstructive pulmonary disease, unspecified (principal)
CPT/HCPCS: 71046

== ENCOUNTER → 2023-07-08 | Outpatient (CLI) | payer MEDICAID, SELFPAY ==
--- OUTSIDE RECORDS SUMMARY | 2023-07-08 17:35 | XMS RPT_ITS | CCD ---
Author Name Unknown Address [address] [place] [address] Organization [facility] Care Team Providers Care Construction Producer Name Role Phone JESUS CORTEZ Unavailable Unavailable [...] Translations: [LATEX] Propensity to adverse reactions (disorder) [facility] Repository Problems Active Problems Problem Classification [...] Start: 02-15-2020 End: 02-15-2020 Patient encounter procedure [facility] Start: 12-02-2019 End: 12-02-2019 Patient encounter procedure [facility] Start: 08-13-2017 End: 08-13-2017 Emergency department patient visit JESUS CORTEZ Facility:B Start: 12-29-2016 End: 12-29-2016 Emergency department patient visit TAZ TREVIÑO Facility:1637 Payers Date Payer Category Payer Medicaid [id number] 1965 Unknown [id number] 2.16.84 [id number] 1965 Unknown [id number] 2.16.84 [id number] Unknown [id number] Progress note 12-22-2020 Note Date & Type Note Facility 12-22-2020 Note HNO ID: [id number] Author: Leander Pope APRN.SRINATH Service: ? Author Type: Nurse Practitioner Type: Progress Notes Filed: 12/22/2020 8:10 PM Note Text: Visit Date: December 22, 2020 Patient Name: Ms.Debra Hernan Porter Date of : 1965 MRN/E #: [id number] Chief Complaint Patient presents with: Dental Problem: [...] with patient. Pt agreeable with above plan. [facility] Summary Purpose Family History No Family History [...] DATE CREATED AUTHOR AUTHOR'S ORGANSARAH ATION 11/12/2017 [facility] DATE CREATED AUTHOR AUTHOR'S ORGANIZ ATION 12/11/2019 [facility] DATE CREATED AUTHOR AUTHOR'S ORGANIZ ATION 02/18/2020 [facility] DATE CREATED AUTHOR AUTHOR'S ORGANIZ ATION 06/22/2021 [facility] FOR RECORDS PERTAINING TO PATIENTS WHO ARE [...] BE BASED ON THE PRIMARY CLINICAL RECORDS. [employer] [facility]. provides no warranty or guarantee of the accuracy or completeness of information in this document.
== END | disposition home or self-care (01) ==
LOC: PSN 13:05
PROVIDERS: PCP Internal Medicine; Referring Provider Internal Medicine; Visit Provider Internal Medicine
DX: J44.9 Chronic obstructive pulmonary disease, unspecified (principal)
CPT/HCPCS: 94060; 94726; 94729

== ENCOUNTER → 2023-07-18 | Outpatient (CLI) | payer MEDICAID, SELFPAY ==
--- NOTE | 2023-07-18 10:48 | US_ITS ---
STUDY: ABDOMINAL ULTRASOUND REASON FOR EXAM: Female, 58 years old. Abdominal pain TECHNIQUE: Transabdominal ultrasound was performed with real-time and static bobo scale imaging. TECHNICAL QUALITY: Adequate. COMPARISON: None. FINDINGS: Liver: The liver measures 13.5 cm. There is normal echogenicity of the liver. The bile ducts are within normal limits. There is hepatic color flow. The direction of portal flow is hepatopetal. There is no demonstrated mass lesion. Gallbladder: Normal distended gallbladder. The gallbladder wall measures 2.7 mm. There is a negative sonographic Nava''s sign. There is no pericholecystic fluid. There are no gallstones. Common Bile Duct (C.B.D.): The common bile duct measures 2.6 mm. Pancreas: Normal size of the head, body and tail of the pancreas. There is normal echogenicity of the pancreas. There is no demonstrated pancreatic mass or cyst. Minimally dilated pancreatic duct measuring 2.8 mm. Spleen: Normal size of the spleen. The spleen measures 9.1 cm x 5.5 cm x 4.3 cm. Right Kidney: There is atrophy of the right kidney. The right kidney measures 8.2 cm x 4 cm x 4.5 cm. Normal renal cortex. The right cortex measures 1.1 cm. There is no demonstrated renal mass or cyst. There is no right hydronephrosis. Left Kidney: Normal size of the left kidney. The left kidney measures 10.7 cm x 5 cm x 4.8 cm. Normal renal cortex. The left cortex measures 1.9 cm. There is no demonstrated renal mass or cyst. There is no left hydronephrosis. Aorta: Unremarkable I.V.C.: The IVC is patent. There is no ascites. US/Abdomen Complete IMPRESSION: Mild atrophy of the right kidney. Electronically Signed: Randolph Pineda MD at 14:59 EST ,
--- OUTSIDE RECORDS SUMMARY | 2023-07-18 11:11 | XMS RPT_ITS | CCD ---
Author Name Unknown Address [address] [place] [address] Organization [facility] Care Team Providers Care Manager Freelance Name Role Phone JESUS CORTEZ Unavailable Unavailable [...] Translations: [LATEX] Propensity to adverse reactions (disorder) [facility] Repository Problems Active Problems Problem Classification [...] Start: 02-15-2020 End: 02-15-2020 Patient encounter procedure [facility] Start: 12-02-2019 End: 12-02-2019 Patient encounter procedure [facility] Start: 08-13-2017 End: 08-13-2017 Emergency department patient visit JESUS CORTEZ Facility:B Start: 12-29-2016 End: 12-29-2016 Emergency department patient visit TAZ TREVIÑO Facility:[id number] Payers Date Payer Category Payer Medicaid [id number] 1965 Unknown [id number] [id number] [id number] 1965 Unknown [id number] [id number] Unknown [id number] Progress note 12-22-2020 Note Date & Type Note Facility 12-22-2020 Note HNO ID: [id number] Author: Leander Pope APRN.SRINATH Service: ? Author Type: Nurse Practitioner Type: Progress Notes Filed: 12/22/2020 8:10 PM Note Text: Visit Date: December 22, 2020 Patient Name: Ms.Debra Hernan Porter Date of : 1965 MRN/E #: [id number] Chief Complaint Patient presents with: Dental Problem: [...] with patient. Pt agreeable with above plan. [facility] Summary Purpose Family History No Family [...] DATE CREATED AUTHOR AUTHOR'S ORGANSARAH ATION 11/12/2017 [facility] DATE CREATED AUTHOR AUTHOR'S ORGANIZ ATION 12/11/2019 [facility] DATE CREATED AUTHOR AUTHOR'S ORGANIZ ATION 02/18/2020 [facility] DATE CREATED AUTHOR AUTHOR'S ORGANIZ ATION 06/22/2021 [facility] FOR RECORDS PERTAINING TO PATIENTS WHO [...] BE BASED ON THE PRIMARY CLINICAL RECORDS. [employer] [facility]. provides no warranty or guarantee of the accuracy or completeness of information in this document.
== END | disposition home or self-care (01) ==
LOC: US 10:47
PROVIDERS: PCP Internal Medicine; Referring Provider Internal Medicine; Visit Provider Internal Medicine
DX: R10.31 Right lower quadrant pain (principal)
CPT/HCPCS: 76700

== ENCOUNTER → 2023-07-22 | Outpatient (CLI) | payer MEDICAID, SELFPAY ==
--- NOTE | 2023-07-22 14:02 | ECHOD_ITS ---
Reason For Study: SOB Left Ventricle Normal LV size. Left ventricular systolic function is normal. The estimated ejection fraction is 65 %. Normal diastololic function. No regional wall motion abnormalities noted. Right Ventricle Normal RV size. Normal systolic function. Atria The left and right atria are normal. Bubble contrast study is positive for PFO. Aneurysmal atrial septum. Lipomatous hypertrophy of the atrial septum. Mitral Valve The mitral valve is structurally normal. No prolapse or stenosis seen. Mild-Moderate (1-2+) eccentric mitral valve insufficiency. Tricuspid Valve Normal tricuspid valve. Mild (1+) tricuspid valve insufficiency. Right ventricular systolic pressure estimated to be 25 mmHg. Aortic Valve Trisinus/trileaflet aortic valve. Pulmonic Valve The pulmonic valve is not well visualized. Great Vessels Normal aortic root. Pericardium/Pleural No pericardial effusion. MMode/2D Measurements & Calculations LVIDd: 4.1 cm IVSd: 0.97 cm Ao root diam: 3.5 cm LVIDs: 2.8 cm LVPWd: 1.1 cm RVDd: 3.0 cm FS: 32.8 % LAV(MOD-bp): 30.1 ml LVAd ap4: 22.2 cm2 LVAd ap2: 27.3 cm2 LAV(MOD-bp) Indexed: 16.0 ml/m2 LVLd ap4: 7.2 cm LVLd ap2: 7.8 cm LAV(MOD-sp2): 30.2 ml EDV(MOD-sp4): 57.7 ml EDV(MOD-sp2): 83.4 ml LAV(MOD-sp4): 31.4 ml EDV(sp4-el): 57.9 ml EDV(sp2-el): 80.6 ml LVAs ap4: 11.9 cm2 LVAs ap2: 14.0 cm2 LVLs ap4: 6.3 cm LVLs ap2: 6.8 cm ESV(MOD-sp4): 20.5 ml ESV(MOD-sp2): 25.7 ml ESV(sp4-el): 19.1 ml ESV(sp2-el): 24.5 ml EF(MOD-sp4): 64.5 % EF(MOD-sp2): 69.2 % EF(sp4-el): 67.0 % SV(MOD-sp4): 37.2 ml SV(MOD-sp2): 57.7 ml SV(sp4-el): 38.8 ml LA dimension(2D): 2.6 cm LA A4 area: 13.9 cm2 RA A4 area: 12.2 cm2 TAPSE: 1.9 cm Time Measurements MV dec time: 0.22 sec Doppler Measurements & Calculations MV E max codey: 58.5 cm/sec Lat Peak E' Codey: 9.2 cm/sec Med Peak E' Codey: 8.5 cm/sec MV A max codey: 73.4 cm/sec E/E' lat: 6.4 E/E' med: 6.8 MV E/A: 0.80 MV dec slope: 268.5 cm/sec2 Ao V2 max: 121.0 cm/sec LV V1 max: 102.8 cm/sec Ao max P.9 mmHg LV V1 max P.2 mmHg Ao V2 mean: 81.9 cm/sec LV V1 mean P.3 mmHg Ao mean P.1 mmHg LV V1 mean: 71.7 cm/sec Ao V2 VTI: 23.4 cm LV V1 VTI: 19.9 cm AV (velocity ratio): 0.85 PA V2 max: 87.4 cm/sec TR max codey: 288.7 cm/sec TR max P.6 mmHg ECHO/Echo Complete Interpretation Summary The estimated ejection fraction is 65 %. Mild (1+) tricuspid valve insufficiency. Bubble contrast study is positive for PFO. Aneurysmal atrial septum. Mild-Moderate (1-2+) eccentric mitral valve insufficiency. There is no comparison study available. Ordering Physician: Rowdy Jiang Referring Physician: Rowdy Jiang Performed By: Esme Gonzalez RDCS
== END | disposition home or self-care (01) ==
LOC: CVS 14:01
PROVIDERS: PCP Internal Medicine; Referring Provider Internal Medicine; Visit Provider Internal Medicine
DX: R06.09 Other forms of dyspnea (principal)
CPT/HCPCS: 93306; A4216

== ENCOUNTER → 2023-10-06 | Outpatient (CLI) | payer MEDICAID, SELFPAY ==
--- NOTE | 2023-10-06 14:35 | CT_ITS ---
EXAM: CT CHEST, LUNG CANCER SCREENING WITHOUT INTRAVENOUS CONTRAST CLINICAL INDICATION: h/o Tobacco Dependnecy TECHNIQUE: Helically acquired images were obtained of the chest without intravenous contrast using low dose (LDCT) lung cancer screening protocol. This CT exam was performed using one or more of the following dose reduction techniques: automated exposure control, adjustment of the mA and/or kV according to patient size, and/or use of iterative reconstruction technique. COMPARISON: No relevant prior studies available. FINDINGS: LUNGS AND PLEURAL SPACES: There are emphysematous changes in both lungs. There is an area of groundglass density in the left upper lobe that measures 5 mm seen on series 2 image 64. There is a noncalcified nodule in the right upper lobe posteriorly that measures 1.0 x 0.7 cm on series 2 image 75. Noncalcified nodule in the right upper lobe that measures 3 mm seen on series 2 image 1. There is a noncalcified nodule in the lower lobe that measures 6 mm seen on series 2 image 1. There is a noncalcified nodule in the right upper lobe that measures 6 mm seen on series 2 image. No pleural effusion or thickening. No pneumothorax. HEART: Unremarkable. Heart size is normal. No pericardial effusion. No significant coronary artery calcifications. MEDIASTINUM: Unremarkable. No mediastinal or hilar adenopathy. Esophagus is unremarkable. No hiatal hernia. THYROID: Unremarkable. No thyroid lesions. BONES/JOINTS: Unremarkable. No suspicious lytic or blastic abnormality. VASCULATURE: Unremarkable. Thoracic aorta is non-dilated. LYMPH NODES: Unremarkable. No enlarged lymph nodes. CT/Low Dose CT Lung Screening IMPRESSION: Emphysematous change with multiple noncalcified nodules within the largest in the right upper lobe. Lung-RADS score: 4X - Very Suspicious. There are additional features or imaging findings that increase the suspicion of malignancy. Recommend chest CT with or without contrast, PET/CT and/or tissue sampling depending on the probability of malignancy and comorbidities. PET/CT may be used when there is a >=8 mm solid component. For new large nodules that develop on an annual repeat screening CT, a 1 month LDCT may be recommended to address potentially infectious or inflammatory conditions. Electronically Signed: Jeramie Bay MD at 0:10 EDT ,
== END | disposition home or self-care (01) ==
LOC: CT 14:32
PROVIDERS: PCP Internal Medicine; Referring Provider Internal Medicine Critical Care Medicine; Visit Provider Internal Medicine Critical Care Medicine
DX: F17.211 Nicotine dependence, cigarettes, in remission (principal)
CPT/HCPCS: 71271

== ENCOUNTER → 2023-10-07 | Outpatient (CLI) | payer MEDICAID, SELFPAY ==
[2023-10-07 13:45] VITALS: PULSE 107; PULSE 108; PULSE 109; PULSE 110; PULSE 111; O2SAT 93; O2SAT 94; O2SAT 95; O2SAT 97
--- NOTE | 2023-10-10 11:36 | PCM.PSN.6M ---
PSN 6 Minute Walk Test 6 Minute Walk Test 6 Minute Walk Test: 6 Minute Walk Test PSN:6-Minute Walk Test Start: 10/07/23 14:18 Freq: Status: Active Protocol: [id number].6MINW Document 10/07/23 13:45 HJ (Rec: 10/07/23 14:21 HJ [email or web address]) 6 Minute Walk Test Date Performed 10/07/23 Time Performed 13:45 Height 5 ft 7 in Weight: 184 lb Weight in Pounds 184.[address]: Ortega Montez FIO2 (% Oxygen) 21 Assistive device used: None Pre-test Oxygen Delivery Method Room Air Pulse Ox (%) 94 Pulse Rate (60-100 beats/min) 110 H Dyspnea Maggie Scale (0-10) 0 Exertion Maggie Scale (6-20) 6 1st minute Oxygen Delivery Method Room Air Pulse Ox (%) 95 Pulse Rate (60-100 beats/min) 111 H 2nd minute Oxygen Delivery Method Room Air Pulse Ox (%) 94 Pulse Rate (60-100 beats/min) 111 H 3rd minute Oxygen Delivery Method Room Air Pulse Ox (%) 93 Pulse Rate (60-100 beats/min) 108 H 4th minute Oxygen Delivery Method Room Air Pulse Ox (%) 93 Pulse Rate (60-100 beats/min) 107 H 5th minute Oxygen Delivery Method Room Air Pulse Ox (%) 94 Pulse Rate (60-100 beats/min) 111 H 6th minute Oxygen Delivery Method Room Air Pulse Ox (%) 94 Pulse Rate (60-100 beats/min) 109 H Post-test Oxygen Delivery Method Room Air Pulse Ox (%) 97 Pulse Rate (60-100 beats/min) 111 H Dyspnea Maggie Scale (0-10) 2 Exertion Maggie Scale (6-20) 8 Full Laps Walked 11 Partial Lap, Number of Tiles Walked 14 Total Distance Walked (ft) 663 Interpretation Interpretation: The patient ambulated 663 feet over the course of 6 minutes beginning on room air without assistive devices. Pretesting oxygen saturation was noted to be 94% on room air. With ambulation, the evelio oxygen saturation was 93%. There was no significant exertional oxygen desaturation. Recommendations Recommendations: There is no indication for the use of supplemental oxygen at this time.
== END | disposition home or self-care (01) ==
LOC: PSN 13:52
PROVIDERS: PCP Internal Medicine; Referring Provider Internal Medicine Critical Care Medicine; Visit Provider Internal Medicine Critical Care Medicine
DX: J44.9 Chronic obstructive pulmonary disease, unspecified (principal); F17.211 Nicotine dependence, cigarettes, in remission
CPT/HCPCS: 94618

== ENCOUNTER → 2023-10-28 | Outpatient (CLI) | payer MEDICAID, SELFPAY ==
[2023-10-28] VITALS (16 sets, daily range): BP systolic 98–162; BP diastolic 40–106; PULSE 76–88; RESP 14–24; TEMP 36.2; O2SAT 94–100; BMI 28.6
--- NOTE | 2023-10-28 | ASPIGT_PTH ---
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 Rowdy Jiang MD Tissues: Lung, NOS Procedures: FNA Specimen Adequacy Elastin Stain (control) Trichrome (control) Special Stain Group II Special Stain Group I PAS Stain (control) Surgery Specimen Level IV AFB Stain (control) GMS Stain (control) Iron Stain (control) Imprint (control) HEADER OPERATION: Right upper lung biopsy PRE-OP DIAGNOSIS: Right lung biopsy TISSUE SUBMITTED: 20-gauge x 5 cores MICROSCOPIC DIAGNOSIS Right lung, CT guided core biopsy: Non-necrotizing and focal necrotizing granulomatous inflammation. No evidence of malignancy. Negative for acid fast bacilli and fungal organisms. See comment. Cj 10/29/2023 COMMENT AFB and GMS stains with matched controls were used in the evaluation of this case and are negative for microorganisms. Elastin stain does not reveal vasculitis. Trichrome stain shows consolidation in areas of the granulomas. PAS stain does not reveal abnormal protein accumulation. Iron stain does not show iron deposition. All matched controls are appropriate. The specimen is evaluated at the time of biopsy by Dr. Kaiser. Immediate Evaluation = Consistent with granulomatous inflammation. Case has been reviewed in consultation with Dr. Marte who concurs with the above diagnosis. IDC:THIAGO MICROSCOPIC DESCRIPTION Slides are reviewed. GROSS DESCRIPTION Received is one container labeled with the patient's name and not further designated. The specimen consists of multiple irregular fragments of scott soft tissue that in aggregate measure 1.0 x 0.3 x 0.1 cm. The specimen is totally submitted in one cassette. The smears are evaluated at the time of biopsy by Dr. Kaiser. THIAGO/ 10/28/2023 TC:2 CPT: 25486,82303,[id number],[id number]
[2023-10-28 09:10] LABS: Platelet Count 222 K/mm3 (150-450)
[2023-10-28 09:18] LABS: International Normalized Ratio 1.1; Partial Thromboplast Time 29.7 Seconds (24.1-36.2); Prothrombin Time (Protime)PT. 13.9 SECONDS (11.7-14.9)
--- NOTE | 2023-10-28 10:15 | RAD_ITS ---
STUDY: X-RAY CHEST REASON FOR EXAM: Female, 58 years old. Immediately post lung biopsy -- Immediately post lung biopsy TECHNIQUE: AP inspiration and expiration views. COMPARISON: Comparison is made with prior study dated March 30, 2024. FINDINGS: The patient status post biopsy of the right upper lobe. No evidence of pneumothorax. RAD/Chest Insp/Exp 2 View IMPRESSION: No evidence of pneumothorax following the right lung biopsy Electronically Signed: Randolph Pineda MD at 11:15 EDT ,
[2023-10-28] MEDS: 0.9% Normal Saline (250mL Bag) 250 ML 15 ML IV (10:18)
[2023-10-28] MEDS: Midazolam 2 MG/2 ML Syringe IV ×2 (10:18→10:31)
[2023-10-28] MEDS: fentaNYL 100 MCG/2 ML Ampul IV ×2 (10:22→10:33)
[2023-10-28] MEDS: Lidocaine 2% (20 ml mdv) 20 ML Vial INFILT (10:32)
--- NOTE | 2023-10-28 10:55 | PCM.OP.PRO ---
Procedure Report Date of Procedure: 10/28/23 Assessment & Plan Assessment/Plan (1) Right upper lobe pulmonary nodule: PLAN: Plan PROCEDURE: CT GUIDED CORE NEEDLE LUNG BIOPSY ORDERING PROVIDER: Jamee Hickey CNP INDICATION: Female, 58 years old. Right upper lobe lung nodule. PROVIDER: TYESHA Teague CONSENT: Written informed consent was obtained having explained the risks, benefits and alternatives in detail with the patient who accepted the risks and agreed to proceed. Laboratory review and clinical assessment was performed. PRE-PROCEDURE SEDATION ASSESSMENT: Current history and physical dictated by referring physician and reviewed. No clinical changes since date of exam. Patient has an ASA Class of 2. PROCEDURAL SEDATION PROTOCOL: The Drugs used were: 3 mg Versed, IV, and 75 mcg Fentanyl, IV. The sedation time was: 25 minutes, starting at 1018 and terminated at 1043. The procedural sedation protocol was independently monitored by the department nurse. RADIATION DOSAGE (If Supplied By Facility): CTDIvol = 14.89 mGy, DLP = 273.11 mGycm Individualized dose optimization techniques were used for this CT. TECHNIQUE: The patient was placed in a prone position. A noncontrast CT was performed to localize the lesion in the right upper lobe. The skin surface was prepped and draped in a sterile fashion. 2% lidocaine was used for local anesthesia. Using CT guidance, a 20-gauge coaxial biopsy device was advanced to the periphery of the lesion. A total of 5 core specimens were obtained. Specimens were microscopically reviewed by pathology in the CT suite and placed in formalin solution. BioSentry tract sealant system was deployed at the biopsy site, and the biopsy needle was removed. A sterile occlusive dressing was applied to the biopsy site. The patient tolerated the procedure well. An immediate chest xray was ordered, per protocol. A negative biopsy does not exclude malignancy. Further imaging or clinical followup based on patient condition and degree of clinical suspicion for malignancy. Suggest rebiopsy, if biopsy results do not match with clinical scenario. IMPRESSION: 1. CT directed core needle biopsy of right upper lobe nodule using CT image guidance with image documentation as described. Pathology results are pending. 2. Procedural Sedation protocol utilized with independent monitoring by the department nurse. Procedures Radiology Radiology CT Procedures: 08655 Biopsy Lung
--- NOTE | 2023-10-28 12:15 | RAD_ITS ---
STUDY: X-RAY CHEST REASON FOR EXAM: Female, 58 years old. 2 hours post lung biopsy -- 2 hours post lung biopsy TECHNIQUE: AP inspiration and expiration views. COMPARISON: Comparison is made with prior study dated October 28, 2023. FINDINGS: No evidence of pneumothorax on the 2 hour post right lung biopsy radiographs. RAD/Chest Insp/Exp 2 View IMPRESSION: No evidence of pneumothorax on the 2 hour post right lung biopsy radiographs. Electronically Signed: Randolph Pineda MD at 11:38 EDT ,
== END | disposition home or self-care (01) ==
LOC: CT 08:50
PROVIDERS: PCP Internal Medicine; Referring Provider Nurse Practitioner Acute Care; Visit Provider Nurse Practitioner Acute Care
DX: R91.1 Solitary pulmonary nodule (principal); I48.91 Unspecified atrial fibrillation; R06.02 Shortness of breath
CPT/HCPCS: 32408; 36415; 71046; 77012; 85049; 85610; 85730; 88172; 88305; 88312; 88313; 99156; J7050; A4216; C2613

== ENCOUNTER → 2023-12-26 | Outpatient (CLI) | payer MEDICAID, SELFPAY ==
[2023-12-26 12:23] LABS: Absolute Lymphocyte Count 1.33 X10^3/uL (0.83-4.51); Absolute Neutrophil Count 5.2 X10^3/uL (2.0-7.7); Basophil# 0.08 X10^3/uL; Basophil% 1.1 % (0-1); Eosinophil# 0.08 X10^3/uL; Eosinophils% 1.1 % (0-5); Hemoglobin 15.2 g/dL (12.0-15.0); Lymphocyte # 1.33 X10^3/ul (0.83-4.51); Lymphocyte % 18.1 % (19-41); Mean Corp Hgb Conc 32.3 g/dL (32-36); Mean Corpuscular Hgb 29.5 pg (27.0-32.0); Mean Corpuscular Volume 91.3 fL (81-99); Mean Platelet Vol. 10.5 fl (6.2-12.0); Monocyte# 0.66 X10^3/uL; NRBC Flagged by Analyzer 0 % (0-5); Neutrophil # 5.19 X10^3/uL (2.7-7.7); Neutrophil % 70.4 % (47-70); Platelet Count 226 K/mm3 (150-450); RBC Distribution Width CV 12.8 % (11.6-14.6); RBC Distribution Width SD 42.9 fl (35.1-43.9); Red Blood Count 5.15 M/mm3 (4.2-5.4); White Blood Count 7.4 K/mm3 (4.4-11.0)
[2023-12-26 13:06] LABS: ALB/GLOB Ratio 1.2 RATIO (0.9-2.4); AST(SGOT) 24 U/L (15-37); Alanine Aminotransfer ALT/SGPT 33 U/L (13-56); Albumin, Serum 3.7 g/dL (3.2-5.0); Alkaline Phosphatase 107 U/L (45-117); Anion Gap 5 (5-15); BUN 16 mg/dL (7-18); BUN/Creat Ratio 17.1 RATIO (10-20); Calcium,Total 9.3 mg/dL (8.5-10.1); Chloride 110 mmol/L (98-107); Creatinine, Serum 0.93 mg/dL (0.55-1.02); EST Glomerular Filtration Rate 66 mL/min (>60); Est Glom Filt Rate - Afr Amer 79 mL/min (>60); Globulin 3.1 g/dL (2.2-4.2); Glucose 82 mg/dL (74-106); Potassium 3.6 mmol/L (3.5-5.1); Protein, Total 6.8 g/dL (6.4-8.2); Sodium Level 142 mmol/L (136-145)
== END | disposition home or self-care (01) ==
LOC: BIMLAB 11:09
PROVIDERS: PCP Internal Medicine; Referring Provider Internal Medicine; Visit Provider Internal Medicine
DX: I10 Essential (primary) hypertension (principal)
CPT/HCPCS: 36415; 80053; 85025

== ENCOUNTER → 2024-02-04 | Outpatient (CLI) | payer MEDICAID, SELFPAY ==
--- NOTE | 2024-02-04 14:22 | CT_ITS ---
STUDY: CT CHEST WITHOUT CONTRAST REASON FOR EXAM: Female, 58 years old. FOLLOW NODULE RADIATION DOSAGE (If Supplied By Facility): CTDIvol = ( 9.84 ) mGy, DLP = ( 351.49 ) mGycm TECHNIQUE: Transaxial imaging was performed without the administration of intravenous contrast material. Multiplanar coronal and sagittal images were reformatted. Individualized dose optimization techniques were used for this CT. COMPARISON: Comparison is made with prior study dated October 06, 2023. FINDINGS: CHEST Stable small benign-appearing bilateral inguinal lymph nodes. There is hyperinflation of the lungs consistent with chronic obstructive lung disease (COPD). Emphysematous changes. There is a 3.8 mm noncalcified nodule in the anterior aspect of the left upper lobe as seen on axial image #16. 2.5 mm noncalcified nodule in the peripheral lateral aspect of the left upper lobe as seen on axial image #29. A 2 mm nodule is seen in the midportion of left upper lobe extra-axially #22. There is a new 5.3 mm nodule in the peripheral lateral aspect of the right upper lobe as seen on axial image #35. This is new. The previously seen irregular nodule in the posterior aspect of the right upper lobe has decreased in size. Scattered tiny nodules are seen in both lungs. There is no demonstrated pleural abnormality. There are calcifications of the coronary arteries. Normal mediastinum. Normal hilar regions. Normal unenhanced pulmonary arteries. There is atherosclerotic calcification of the aortic arch. There are degenerative changes of the thoracic spine. There is no demonstrated abnormality of the visualized upper abdomen. CT/Chest without Contrast IMPRESSION: Multiple tiny nodules seen in both lungs. Correlates with a PET scan recommended. Electronically Signed: Randolph Pineda MD at 9:54 EDT ,
== END | disposition home or self-care (01) ==
PROVIDERS: PCP Internal Medicine; Referring Provider Nurse Practitioner Acute Care; Visit Provider Nurse Practitioner Acute Care
DX: R91.1 Solitary pulmonary nodule (principal)
CPT/HCPCS: 71250

== ENCOUNTER → 2024-04-29 | Outpatient (CLI) | payer MEDICAID, SELFPAY ==
--- NOTE | 2024-04-29 14:12 | PR.HP_ITS ---
History of Present Illness General Arrival date:: 04/29/24 Arrival time:: 14:12 Date of Referral:: 03/24/24 Date of Evaluation: 04/29/24 Referring Physician: Dr. Ortega Montez Primary Diagnosis: COPD GOLD II Moderate History of Present Pulmonary Event mMRC Breathless Scale: When is the patient short of breath? Y/N Grade: Description of Breathlessness: 0 I only get breathless with strenuous exercise. 1 I get short of breath when hurrying on level ground or walking up a slight hill. 2 On level ground, I walk slower than people of the same age because of breathless, or have to stop for breath when walking at my own pace. 3 I stop for breath after walking 100 yards or after a few minutes on level ground. 4 I am too breathless to leave the house or I am breathless when dressing. Respiratory Problems: Yes Retain Secretions, Fatigue, Wheezing, Able to Speak in Full Sentences, Dizziness, Hoarseness, Anxiety, Panic, Dyspnea with Activity and Cough with Secretions; No Limited Range of Motion, Chest Pain, Ankle Swelling, Dyspnea at Rest or Dyspnea Lying Down Flat Medications Home Medications blood pressure monitor #1 ea 10/09/21 nebulizer and compressor #1 ea 06/03/23 hydroxyzine HCl 25 mg tablet 25 mg PO TID PRN anxiety #7 tabs 06/27/23 miscellaneous medical supply 1 miscellaneous ONCE 12 months #1 ea 08/19/23 fluticasone furoate 200 mcg/actuation blister powder for inhalation (Arnuity Ellipta) 1 inh inhalation QDAY #30 ea 10/15/23 guaifenesin 1,200 mg tablet, extended release 12 hr (Mucinex) 1,200 mg PO Q12H #180 tabs 10/15/23 umeclidinium 62.5 mcg-vilanterol 25 mcg/actuation powdr for inhalation (Anoro Ellipta) 1 ea inhalation QDAY #60 ea 10/15/23 ipratropium 0.5 mg-albuterol 3 mg (2.5 mg base)/3 mL nebulization soln 3 ml inhalation 4X/DAY PRN PRN shortness of breath or wheezing #180 mL 11/04/23 albuterol sulfate 90 mcg/actuation aerosol inhaler (Ventolin HFA) 2 inh inhalation Q3-4H PRN 12/26/23 amlodipine 5 mg tablet 5 mg PO DAILY #90 tabs 12/26/23 bupropion HCl 150 mg 24 hr tablet, extended release 150 mg PO QAM #90 tabs 12/27/23 buspirone 5 mg tablet 5 mg PO BID #180 TABLETS 02/03/24 Disability Placard #1 ea 03/09/24 amoxicillin 875 mg-potassium clavulanate 125 mg tablet 1 tab PO BID #20 tabs 03/17/24 Allergies Allergies latex Allergy (Verified 03/09/24 14:40) Rash Secretions Thick:: Yes Amount/Day:: 2 TBSP (4-5 TBSP) Cough:: Yes AM: Yes PM: Yes Sleep Disorder Evaluation Hx of Sleep Apnea: No Do you snore loudly (louder than talking or can be heard through closed doors)?: No Do you often feel tired/ fatigued/ sleepy during daytime?: No Has anyone observed you stop breathing during sleep?: No History of Hypertension (for STOP score): Yes STOP Results: Negative Medical Utilization Medical Devices Do you use a peak flow meter at home?: No Do you use a spacer device with your inhalers?: No Medical Utilization Number of hospital visits in the last year?: 0 Number of emergency room visits in the last year?: 2 Do you see your physician on a regular schedule?: Yes How often?: around 5 times a year. Advanced Directives Advanced Directives Power of Emissions Engineer: No Living Will: No Advance Directives Information Provided: No Advance Directives on File: No DNR Order?:: No Past Medical History Covid-19 Screening Physicial Symptoms Other Clinical Concerns Exposure Risk Pertinent Comorbidities Has a chronic lung disease or moderate to severe asthma:: Yes Medical History Medical History Anxiety and depression Dermatitis Mitral valve insufficiency RLQ abdominal pain UTI (urinary tract infection) History of COVID-19 Dyspnea on exertion Wound of right foot Right groin hernia Cellulitis of right foot Cellulitis of right ankle Blood glucose elevated Tobacco abuse, in remission COPD (chronic obstructive pulmonary disease) Shortness of breath Palpitations Tobacco abuse Hypertension Panic attack Grief counseling Grief reaction Grief at loss of child Back problem Seasonal allergies Sarcoma Surgical History Surgical History H/O: hysterectomy Significant Family History Family History Mother CVA (cerebral vascular accident) Social History Smoking History Smoking Status: Former smoker Years Smokin Packs Smoked per Day: 1 (stopped 2 years ago) Hx Tobacco Use: Yes Occupation Occupation (List type of work in comments):: Unemployed Hobbies, Recreation, Social Activities Hobbies: Other (painting) Recreational Activities: I am able to engage in most, but not all activities Functioning ADL/IADL Current Ability Current Ability: Independent: Self-Care (e.g.,grooming, dressing, & bathing), Independent: Ambulation, Independent: Transfer and Independent: Household tasks (e.g., light meal prep, laundry, shopping) Pt Functioning Prior to Problem Prior Functioning: Self-Care (e.g.,grooming, dressing, & bathing): Independent, Ambulation: Independent, Transfer: Independent and Household tasks (e.g., light meal prep, laundry, shopping): Independent Social Environment Status Marital Status: Current Living Arrangements Living Environment:: Alone Children How many children do you have?: 3 Do any of your children live nearby?: Yes Safety Do you feel safe in your surroundings?: Yes Assistance Do you need any assistance at home?: no Review of Systems Review of Systems Review of Systems Respiratory: Reports Cough, Pleuritic Pain, SOB upon Exertion, Sputum production, Wheezing, Appetite, Normal, Dizziness/Lightheadedness, Fatigue and Sleep, Normal; Denies Hemoptysis, SOB at Rest, PVD or Sexual changes Pain Is Patient Pain Free?: Yes Pain Location: other (arthritis ) Pain Level: 5/10 Risk Factor Assessment Chief Complaint Chief Complaint: COPD GOLD II Moderate Vital Signs Pulse Rate: 91 Pulse Ox: 91 Blood Pressure: 139/90 Obesity Height: 5 ft 7 in Weight:: 183 lb Weight in Pounds: 183.0 lbs Body Mass Index (BMI): 28.6 Nutritional Referral for Obesity: No Physical Activity Physical Inactivity: Recreational activity Risk Stratification Risk Guidelines: Moderate Risk: Risk Factor for Smoking, Risk Factor for Dyslipidemia, Risk Factor for Obesity and Risk Factor for Sedentary Lifestyle and Highest Risk: Risk Factor for Diabetes, Risk Factor for Hypertension and Risk Factor for Depression For Smoking Smoking Risk Guidelines For Dyslipidemia Dyslipidemia Risk Guidelines For Diabetes Mellitus Diabetes Risk Guidelines For Obesity/Overweight Obesity/Overweight Risk Guidelines For Hypertension Hypertension Risk Guidelines For Sedentary Lifestyle Sedentary Lifestyle Risk Guidelines For Depression Depression Risk Guidelines Motivation Motivation to Participate On a scale of 1 to 10, how prepared are you to commit to attending program?: 5 What do you see as barriers to successfully being able to complete the program?: nothing What do you see as the benefits of succesfully completing the program? In other words, what do you hope to get out of participating in the program?: better breathing Are there issues you are dealing with that will interfere with completing the program?: no Do you have a spouse or signficant other, family or friends who will help support you to complete the program?: yes Diagnostic Data Review 6 Minute Walk Test 6 Minute Walk Test: 663 Pulmonary Function Test FEV1:: 51 FVC:: 72 FEV1/FVC%:: 70
--- NOTE | 2024-04-29 14:20 | PCM.PR.TP ---
General Information2 General Information Admitting Diagnosis: COPD GOLD II Moderate Gold Classification:: GOLD 2: Moderate PFT FEV1:: 51 FVC:: 72 FEV1/FVC%:: 70 Personal Learning Style/Barriers Personal Learning Style:: Audio/Visual Barriers to Learning: None Stage of change r/t lifestyle modifications: Contemplation Education/Goals SC Patient Goals: Increase muscle strength: Initial Assessment, Experience less dyspnea: Initial Assessment, Improve energy level: Initial Assessment, Participate in home exercise: Initial Assessment, Improve the ability to cope with ADLs: Initial Assessment, Improve knowledge of lung disease: Initial Assessment, Control panic/anxiety: Initial Assessment, Improve diet and nutrition: Initial Assessment, Improve my quality of life: Initial Assessment and Reduce Stress/relaxation techniques: Initial Assessment Exercise - Initial Assessment Visit Date of Eval: 04/29/24 (initial eval ) Problem/Goals Problems: Deconditioning, No regular exercise and Knowledge deficit exercise safety Goals:: Aerobic exercise 30-60 mins x 12 weeks [36 sessions] Functional Capacity Test Number of feet walked: 663 Lowest SPO2 %: 93 Physician Prescribed Exercise Modalities: Treadmill, Rower, [employer]inn Airdyne AD-7, Crowned [employer] Stepper, Nu[employer] Pro-II Ergometer and Nu[employer] Lateral [place] Frequency (days/week): 3 Duration (Minutes):: 30-45 Intensity: 60-80% of age predicted maximum heart rate reserve Current METSs:: 2 Target HR:: 122 (97-122) EKG Type: NSR with sinus arrhythmia nonspecific ST and T wave abnormality Plan Plan and Plan to Review:: Benefits of exercise, Core components of exercise, How to measure dyspnea level, How to monitor dyspnea level, Exercise intensity, Exercise safety guideline, Home exercise guidelines and Maggie: 3-4/11-13 Home Exercise Mode: Walking Nutrition/Wt Mgmt - Initial Visit Date of Eval: 04/29/24 (initial eval ) Problems/Goals Problems: Overweight Goals: Wt Loss 1-2 lbs per week Weight Management Knowledge Deficit Management of:: Overweight Admit Height:: 5 ft 7 in Admit Weight:: 183 lb Admit BMI:: 28.6 Intervention Referral to dietitian:: No Will attend diet classes:: Yes Intervention/Plan: Instruct on ideal BMI & set weight loss goal w/patient, Assist pt to ID & incorporate diet changes for weight loss by S9, Refer to Structured Weight Loss program as appropriate, Encourage goal of using 250-300dcal per session for weight loss and Other additional plan/interventions Plan Nutrition Plan: Yes: Review BMI or WC & identify target wt & strategies for wt control, Yes: Nutrition education class:, Yes: Medication education class [Prednisone]:, Yes: Weight control education class:, Yes: Education re: Need for ongoing weight monitoring, Yes: Food diary: and Yes: Physical activity log: Nutrition/Wt Mgmt - 30-Day Weight Management Height: 5 ft 7 in Weight:: 183 lb BMI: 28.6 Nutrition/Wt Mgmt - 60-Day Weight Management Height: 5 ft 7 in Weight:: 183 lb BMI: 28.6 Nutrition/Wt Mgmt - 90-Day Weight Management Height: 5 ft 7 in Weight:: 183 lb BMI: 28.6 Nutrition/Wt Mgmt - Final Weight Management Height: 5 ft 7 in Weight:: 183 lb BMI: 28.6 Psychosocial - Initial Assess Visit Date of Eval: 04/29/24 (initial eval ) Problems/Goals History of Emotional Disorders: Anxious and Depression (Patient is looking for a new counselor. ) Psychosocial Goals: 1. Patient is free from overwhelming symtoms of depression (or anxiety, 2. Identifies personal stressors & states the strategies for managing, 3. Identifies activities to decrease isolation and/or symptoms of, 4. Improved psychosocial coping skills., 5. Verbalizes coping strategies., 6. Adequate treatment of depression. and 7. Improved Q.O.L. Psychosocial Test Tool Used:: Pulmonary QOL and PHQ-9 Questionnaire Referred to MD for counseling:: No Referral to Behavioral Health PS - Interventions: Yes: Attend Stress Management Classes Intervention/Plan: See List Interventions/Plan:: Assess stressors,coping strategies & signs of derpression on admission, Instruct/assist pt to develop coping & personal stress Mgt strategies, Refer to Behavioral Health if appropriate, Refer to Physician if appropriate, Instruct patient to recognize signs & symptoms of depression, Instruct patient to recog and Other additional plan/intervention Comments:: Pt is currently in counseling Psychosocial - 30-Day Problems/Goals History of Emotional Disorders: Anxious and Depression (Patient is looking for a new counselor. ) Psychosocial Goals: 1. Patient is free from overwhelming symtoms of depression (or anxiety, 2. Identifies personal stressors & states the strategies for managing, 3. Identifies activities to decrease isolation and/or symptoms of, 4. Improved psychosocial coping skills., 5. Verbalizes coping strategies., 6. Adequate treatment of depression. and 7. Improved Q.O.L. Psychosocial Test Tool Used:: Pulmonary QOL and PHQ-9 Questionnaire Referred to MD for counseling:: No Referral to Behavioral Health PS - Interventions: Yes: Attend Stress Management Classes Plan Interventions/Plan:: Assess stressors,coping strategies & signs of derpression on admission, Instruct/assist pt to develop coping & personal stress Mgt strategies, Refer to Behavioral Health if appropriate, Refer to Physician if appropriate, Instruct patient to recognize signs & symptoms of depression, Instruct patient to recog and Other additional plan/intervention Comments:: Pt is currently in counseling Psychosocial - 60-Day Problems/Goals History of Emotional Disorders: Anxious and Depression (Patient is looking for a new counselor. ) Psychosocial Goals: 1. Patient is free from overwhelming symtoms of depression (or anxiety, 2. Identifies personal stressors & states the strategies for managing, 3. Identifies activities to decrease isolation and/or symptoms of, 4. Improved psychosocial coping skills., 5. Verbalizes coping strategies., 6. Adequate treatment of depression. and 7. Improved Q.O.L. Psychosocial Test Tool Used:: Pulmonary QOL and PHQ-9 Questionnaire Referred to MD for counseling:: No Referral to Behavioral Health PS - Interventions: Yes: Attend Stress Management Classes Plan Interventions/Plan:: Assess stressors,coping strategies & signs of derpression on admission, Instruct/assist pt to develop coping & personal stress Mgt strategies, Refer to Behavioral Health if appropriate, Refer to Physician if appropriate, Instruct patient to recognize signs & symptoms of depression, Instruct patient to recog and Other additional plan/intervention Comments:: Pt is currently in counseling Psychosocial - 90-Day Problems/Goals History of Emotional Disorders: Anxious and Depression (Patient is looking for a new counselor. ) Psychosocial Goals: 1. Patient is free from overwhelming symtoms of depression (or anxiety, 2. Identifies personal stressors & states the strategies for managing, 3. Identifies activities to decrease isolation and/or symptoms of, 4. Improved psychosocial coping skills., 5. Verbalizes coping strategies., 6. Adequate treatment of depression. and 7. Improved Q.O.L. Psychosocial Test Tool Used:: Pulmonary QOL and PHQ-9 Questionnaire Referred to MD for counseling:: No Referral to Behavioral Health PS - Interventions: Yes: Attend Stress Management Classes Plan Interventions/Plan:: Assess stressors,coping strategies & signs of derpression on admission, Instruct/assist pt to develop coping & personal stress Mgt strategies, Refer to Behavioral Health if appropriate, Refer to Physician if appropriate, Instruct patient to recognize signs & symptoms of depression, Instruct patient to recog and Other additional plan/intervention Comments:: Pt is currently in counseling Psychosocial - Final Assess Problems/Goals History of Emotional Disorders: Anxious and Depression (Patient is looking for a new counselor. ) Psychosocial Goals: 1. Patient is free from overwhelming symtoms of depression (or anxiety, 2. Identifies personal stressors & states the strategies for managing, 3. Identifies activities to decrease isolation and/or symptoms of, 4. Improved psychosocial coping skills., 5. Verbalizes coping strategies., 6. Adequate treatment of depression. and 7. Improved Q.O.L. Psychosocial Test Tool Used:: Pulmonary QOL and PHQ-9 Questionnaire Referred to MD for counseling:: No Referral to Behavioral Health PS - Interventions: Yes: Attend Stress Management Classes Plan Interventions/Plan:: Assess stressors,coping strategies & signs of derpression on admission, Instruct/assist pt to develop coping & personal stress Mgt strategies, Refer to Behavioral Health if appropriate, Refer to Physician if appropriate, Instruct patient to recognize signs & symptoms of depression, Instruct patient to recog and Other additional plan/intervention Comments:: Pt is currently in counseling Oxygen & Oxygen Titration Init Visit Date of Eval: 04/29/24 (initial eval ) Initial Assessment Oxygen on Admission: None Patient Reports:: Prod cough daily >1 Tbsp Plans Plan: Monitor SpO2 rest & with exercise, Recommend appropriate FiO2 to Pt/MD, Assist to contact DME for O2, Train appropriate O2 use at rest, Train appropriate O2 use with exercise and Train O2 safety & systems Reviewed prescribed medications:: Purpose, Schedule, Side effects and Importance of compliance Instruct correct technique/timing & care:: MDI, DPI, Nebulizer and Return demo use of inhaler Bronchial Hygiene Plan: Controlled cough, CPT, Vibratory PEP device, VEST, Role of exercise in secretion clearance, NS Nasal spray, Hydration, Hand hygiene, Evaluate sputum, When to call MD, Signs/symptoms to report:, Influenza/Pneumovax vaccines and Cleaning of respiratory equipment Core Components - Initial Visit Date of Eval: 04/29/24 (initial eval ) Exacerbation Mgmt & Airway Clearance Patient Reports:: Prod cough daily >1 Tbsp Plan: Monitor SpO2 rest & with exercise, Recommend appropriate FiO2 to Pt/MD, Assist to contact DME for O2, Train appropriate O2 use at rest, Train appropriate O2 use with exercise and Train O2 safety & systems Instruct correct technique/timing & care:: MDI, DPI, Nebulizer and Return demo use of inhaler Bronchial Hygiene Plan: Controlled cough, CPT, Vibratory PEP device, VEST, Role of exercise in secretion clearance, NS Nasal spray, Hydration, Hand hygiene, Evaluate sputum, When to call MD, Signs/symptoms to report:, Influenza/Pneumovax vaccines and Cleaning of respiratory equipment Medication Reviewed prescribed medications:: Purpose, Schedule, Side effects and Importance of compliance Diabetes Referral to dietitian:: No Will attend diet classes:: Yes Patient Health Questionnaire PHQ-9 Screening Initial Assessment: 1. Little interest or pleasure in doing things: Not at all 2. Feeling down, depressed, or hopeless: Several days 3. Trouble falling or staying asleep, or sleeping too much: Several days 4. Feeling tired or having little energy: Several days 5. Poor appetite or overeating: Several days 6. Feeling bad about yourself -- or that you are a failure or have let yourself or your family down: Not at all 7. Trouble concentrating on things, such as reading the newspaper or watching television: Nearly every day 8. Moving or speaking so slowly that other people could have noticed. Or the opposite - being so fidgety or restless that you have been moving around a lot more than usual: Not at all 9. Thoughts that you would be better off , or of hurting yourself in some way: Not at all Total Score: 7 Knowledge Questionaire (BCKQ) Information Information: [place] COPD Knowledge Questionnaire (BCKQ) This questionnaire is designed to find out what you know about your lung problem. It should be completed without help form anyone else. This usually takes between 10 and 20 minutes. Your answers will help us to find out what information you need to help you to understand and manage your lung condition. [place] [employer] [place] which you think is the correct answer. Questions 1. In COPD: a. In COPD the word chronic means it is severe: True b. COPD can only be confirmed by breathing tests: True c. In COPD ther is usually gradual worsening over time: True d. In COPD oxygen levels in the blood are always low: Don't know e. COPD is usually in people less than 40 years old: Don't know 2. COPD: Ever than 80% of COPD cases are caused by cigarette smoking: Don't know b. COPD can be caused by occupational dust exposure: True c. Longstanding asthma can develop into COPD: True d. COPD is commonly an inherited disease: Don't know e. Women are less vunerable to the effects of cigarette than men: False 3. The following symptoms are Common in COPD: a. Swelling of the ankles is common in COPD:: True b. Fatigue [tiredness] is common in COPD: True c. Wheezing is common in COPD: True d. Crushing chest pain is common in COPD: True e. Rapid weight loss is common in COPD: Don't know 4. Breathlessness in COPD: a. Severe breathlessness prevents travel by air: True b. Breathlessness can be worsened by eating large meals: True c. Breathlessness means that your oxygen levels are low: True d. Breathlessness is a normal response to exercise: False e. Breathlessness is primarily caused by a narrowing of the bronchial tubes: Don't know 5. Phlegm (sputum): a. Coughing phlegm is a common symptom in COPD: True b. Clearing phlegm is more difficult if you get dehydrated: Don't know c. Bronchodilator inhalers can help clear phlegm: Don't know d. Phlegm causes harm if swallowed: False e. Clearing phlegm can be assisted by breathing exercises: True 6. Chest infections / exacerbations: a. Chest infections often cause coughing of blood: Don't know b. Chest infection phlegm usually becomes coloured (ylw/grn): True cExerbations (episodes of worsening) can occur in the absence of chest infection: Don't know d. Chest infections are always accompanied by a high temperature: Don't know e. Steroid tablets should be taken whenever there is an exacerbation: False 7. Excercise in COPD: aWalking excercises better than breathing to improve fitness: True b. Exercise should be avoided as it strains the lungs: False c. Exercise can help maintain your bone density: Don't know d. Exercise helps relieve depression: Don't know e. Exercise should be stopped if it makes you breathless: Don't know 8. Smoking: a. Stopping smoking will reduce the risk of heart disease: True b. Stopping smoking will slow down further lung damage: True c. Stopping smoking is pointless as the damage is done: False d.Stopping smoking usually results in improved lung function: True eNicotine replacement therapy only available on prescription: False 9. Vaccination: a. A flu jab is recommended every year: True b. You can get flu from having a flu jab: False c. You can only have a flu jab if you are 65 or over: False d. A pneumonia jab protects against all forms of pneumonia: True e.You can have a pneumonia jab and a flu job on the same day: True 10. Inhaled bronchodilators: a. Bronchodilators act quickly (within 10 minutes): True b. Both short & long acting bronchodilators can be taken on the same day: True c. Spacers (volumatic,nebuhaler,serochamber)should be dried w/atowel after washing: True d. A spacer device increases the medication to the lungs: Don't know e. Tremor may be a side effect of bronchodilators: True 11. Antibiotic treatment in COPD: a. To be effective, the course should last at least 10 days: True b. Excessive use of antibiotics can cause resistant bacteria (germs): True c. Antibiotics will clear all chest infections: False d. Antibiotic treatment is necessary for an exacerbation (worsening) however mild: Don't know e. Seek advice if antibiotics cause severe diarrhoea: True 12. Steroid tablets given for COPD (eg Prednisolone): a. Steroid tablets help strengthen muscles: Don't know b. Steroid tablets should be avoided if there is a chest infection: Don't know c. The risk of long-term side effects due to steroids is less w/short courses then w/continous treatment: Don't know dIndigestion is common side effect from using steroid tablet: Don't know e. Steroid tablets can increase your appetite: Don't know 13. Inhaled steroids (brown, red or orange): a. Inhaled steroids should be stopped if you are given steroid tablets: Don't know bSteroid inhalers can be used for rapid relief breathlessnes: True c. Spacer devices reduce the risk of getting thrush in the mouth: Don't know d.Steroid inhaler should be taken before your bronchodilator: Don't know e. Inhaled steroids improve lung function in COPD: True COPD Knowledge Test Total Score:: 28 COPD Assessment Test [CAT] Questions Never cough = 0, Cough all the time = 5: 5 No chest tightness = 0, Chest very tight = 5: 3 No breathless w/exertion = 0, Very breathless w/exertion = 5: 5 No limitations w/activity = 0, Very limited w/activity = 5: 2 Confident leaving home = 0, Not at all confident = 5: 1 Sleep soundly = 0, Don't sleep soundly = 5: 3 Lots of energy = 0, No energy at all = 5: 2 Self-Efficacy 6-Item Scale Initial Assessment: We would like to know how confident you are in doing certain activities. Please select your confidence level for: Fatigue Select Number: 8 Physical Discomfort or Pain Select Number: 8 Emotional Distress Select Number: 8 Other Symptoms or Health Problems Select Number: 8 Different Tasks and Activities Select Number: 8 Medication Select Number: 10 Total Score:: 8 Nutrition Survey Nutrition Survey Instructions Scoring Instructions Nutrition Survey Initial: Have you lost >10 lbs over the past 2 months without trying?: No Are you following a special diet at home for diabetes, low fat, or low salt?: No Are you interested in meeting with a dietitian for help understanding your diet?: Yes (verbally declined) Do you eat less than 3 meals a day?: Yes Do you eat fatty meats (ortiz, sausage, ribs, etc), fried foods, desserts, large amounts of salad dressings, margarine, butter, or cheese most days?: No Do you have food allergies? [Enter types in comment field]: No Do you eat in restaurants more than 3 times a week?: No Do you season food with salt, seasoning salt, or garlic salt?: No Do you used canned, boxed, frozen meals, or soups, seasoning packets?: No Total Score:: 2
[2024-04-29 14:49] VITALS: BP 139/90; PULSE 91; O2SAT 91; BMI 28.6
[2024-04-29 15:15] VITALS: BMI 28.6
== END | disposition home or self-care (01) ==
PROVIDERS: PCP Internal Medicine; Referring Provider Internal Medicine Critical Care Medicine; Visit Provider Internal Medicine Critical Care Medicine
DX: J44.9 Chronic obstructive pulmonary disease, unspecified (principal); I10 Essential (primary) hypertension; R05.9 Cough, unspecified; R06.02 Shortness of breath; R06.2 Wheezing; R07.81 Pleurodynia; R42 Dizziness and giddiness

== ENCOUNTER → 2024-06-11 | Outpatient (CLI) | payer MEDICAID, SELFPAY ==
[2024-04-29 15:15] VITALS: BMI 28.6
[2024-05-28 11:11] VITALS: BMI 29.0
--- NOTE | 2024-06-11 14:04 | CT_ITS ---
INDICATION: MULTIPLE NODULES IN SMOKER EXAMINATION: CT CHEST WITHOUT CONTRAST - CT Chest W/O Contrast Injection TECHNIQUE: Helically acquired images were obtained of the chest. The protocol utilizes one or more of the following dose reduction techniques: automated exposure control, adjustment of mA and/or kV according to patient size,and/or use of iterative reconstruction technique. IV Contrast dosage and agent: None. RADIATION DOSAGE (If Supplied By Facility): CTDIvol = ( 9.74 ) mGy, DLP = ( 331.50 ) mGycm COMPARISON: Prior studies dated: 02/04/24 and 10/06/2023 FINDINGS: LUNGS, PLEURA AND LARGE AIRWAYS: The central airways are patent. There is moderate centrilobular and paraseptal emphysema. There are multiple pulmonary nodules again identified. For instance, right upper lobe 0.4 cm nodule on series 4 image 29. Right lower lobe 0.6 cm nodule on image 73. Anterior left upper lobe 0.4 cm nodule at the apex on image 11. Additional small nodules are seen, without change from prior. No new pulmonary nodules are seen. There is new patchy airspace opacity in the left lower lobe. Of note, the previous posterior right upper lobe nodule seen on the study from 10/06/2023 is diminished from prior, now with a linear appearance of probable scarring. No pleural effusion or thickening. No pneumothorax. THYROID: No thyroid lesions. HEART AND PERICARDIUM: Heart size is normal. No pericardial effusion. CORONARY ARTERIES: Coronary artery calcification is seen. VESSELS: Thoracic aorta is not dilated. MEDIASTINUM AND GENI: No mediastinal or hilar adenopathy. Esophagus is unremarkable. No hiatal hernia. UPPER ABDOMEN: No acute pathology. BONES: No suspicious lytic or blastic abnormality. CT/Chest without Contrast IMPRESSION: Moderate emphysema. Multiple pulmonary nodules are again identified, without change from prior imaging therefore suggesting benign etiology. As such, continued annual lung cancer screening is recommended. There is new airspace opacity of the left lower lobe, suspicious for pneumonia. Electronically Signed: Valente Freeman MD at 1:17 EST ,
== END | disposition home or self-care (01) ==
LOC: CT 14:03
PROVIDERS: PCP Internal Medicine; Referring Provider Nurse Practitioner Acute Care; Visit Provider Nurse Practitioner Acute Care
DX: R91.1 Solitary pulmonary nodule (principal)
CPT/HCPCS: 71250

== ENCOUNTER 2024-06-14 13:00 | Outpatient (RCR) | payer MEDICAID, SELFPAY ==
[2024-04-29 15:15] VITALS: BMI 28.6
--- NOTE | 2024-05-28 10:51 | PR.ITP_ITS ---
Exercise - Initial Assessment Visit Session Number:: 2 Physician Prescribed Exercise Modalities: Treadmill, SciFit Stepper and SciFit Lateral [place] Current METSs:: 2.2 Target HR:: 122 (97-122) Current RPD:: 2-3 Maximum Exercise HR:: 122 Resting Blood Pressure: 124/82 Maximum Exercise Blood Pressure: 142/80 Minimum SpO2 with exercise: 91 EKG Type: NSR to ST Nutrition/Wt Mgmt - Initial Visit Session Number:: 2 Weight Management Admit Height:: 5 ft 7 in Admit Weight:: 185 lb Admit BMI:: 29.0 Nutrition/Wt Mgmt - 30-Day Visit Date of Eval: 05/28/24 Session Number:: 2 Weight Management Height: 5 ft 7 in Weight:: 185 lb BMI: 29.0 Weight Goals Progress:: Progressing (Pt has attended 2 sessions so far. Pt is scheduled to attend nutrition class. Pt will be encouraged to eat a healthy low sodium diet.) Nutrition/Wt Mgmt - 60-Day Visit Session Number:: 2 Weight Management Height: 5 ft 7 in Weight:: 185 lb BMI: 29.0 Nutrition/Wt Mgmt - 90-Day Visit Session Number:: 2 Weight Management Height: 5 ft 7 in Weight:: 185 lb BMI: 29.0 Nutrition/Wt Mgmt - Final Visit Session Number:: 2 Weight Management Height: 5 ft 7 in Weight:: 185 lb BMI: 29.0 Psychosocial - Initial Assess Visit Session Number:: 2 Problems/Goals History of Emotional Disorders: Anxious and Depression (Pt is looking for a new counselor.) Psychosocial Goals: 1. Patient is free from overwhelming symtoms of depression (or anxiety, 2. Identifies personal stressors & states the strategies for managing, 3. Identifies activities to decrease isolation and/or symptoms of, 4. Improved psychosocial coping skills., 5. Verbalizes coping strategies., 6. Adequate treatment of depression. and 7. Improved Q.O.L. Self-reported stressors: Other Psychosocial Test Tool Used:: Pulmonary QOL and PHQ-9 Questionnaire Referred to MD for counseling:: No Referral to Behavioral Health PS - Interventions: Yes: Attend Stress Management Classes Intervention/Plan: See List Interventions/Plan:: Assess stressors,coping strategies & signs of derpression on admission, Instruct/assist pt to develop coping & personal stress Mgt strategies, Refer to Behavioral Health if appropriate, Refer to Physician if appropriate, Instruct patient to recognize signs & symptoms of depression, Instr uct patient to recog and Other additional plan/intervention Psychosocial - 30-Day Visit Date of Eval: 05/28/24 Session Number:: 2 Problems/Goals History of Emotional Disorders: Anxious and Depression (Pt is looking for a new counselor.) Psychosocial Goals: 1. Patient is free from overwhelming symtoms of depression (or anxiety, 2. Identifies personal stressors & states the strategies for managing, 3. Identifies activities to decrease isolation and/or symptoms of, 4. Improved psychosocial coping skills., 5. Verbalizes coping strategies., 6. Adequate treatment of depression. and 7. Improved Q.O.L. Self-reported stressors: Other Psychosocial Test Tool Used:: Pulmonary QOL and PHQ-9 Questionnaire Referred to MD for counseling:: No Referral to Behavioral Health PS - Interventions: Yes: Attend Stress Management Classes Plan Interventions/Plan:: Assess stressors,coping strategies & signs of derpression on admission, Instruct/assist pt to develop coping & personal stress Mgt strategies, Refer to Behavioral Health if appropriate, Refer to Physician if appropriate, Instruct patient to recognize signs & symptoms of depression, Instruct patient to recog and Other additional plan/intervention Psychosocial - 60-Day Visit Session Number:: 2 Problems/Goals History of Emotional Disorders: Anxious and Depression (Pt is looking for a new counselor.) Psychosocial Goals: 1. Patient is free from overwhelming symtoms of depression (or anxiety, 2. Identifies personal stressors & states the strategies for managing, 3. Identifies activities to decrease isolation and/or symptoms of, 4. Improved psychosocial coping skills., 5. Verbalizes coping strategies., 6. Adequate treatment of depression. and 7. Improved Q.O.L. Self-reported stressors: Other Psychosocial Test Tool Used:: Pulmonary QOL and PHQ-9 Questionnaire Referred to MD for counseling:: No Referral to Behavioral Health PS - Interventions: Yes: Attend Stress Management Classes Plan Interventions/Plan:: Assess stressors,coping strategies & signs of derpression on admission, Instruct/assist pt to develop coping & personal stress Mgt strategies, Refer to Behavioral Health if appropriate, Refer to Physician if appropriate, Instruct patient to recognize signs & symptoms of depression, Instruct patient to recog and Other additional plan/intervention Psychosocial - 90-Day Visit Session Number:: 2 Problems/Goals History of Emotional Disorders: Anxious and Depression (Pt is looking for a new counselor.) Psychosocial Goals: 1. Patient is free from overwhelming symtoms of depression (or anxiety, 2. Identifies personal stressors & states the strategies for managing, 3. Identifies activities to decrease isolation and/or symptoms of, 4. Improved psychosocial coping skills., 5. Verbalizes coping strategies., 6. Adequate treatment of depression. and 7. Improved Q.O.L. Self-reported stressors: Other Psychosocial Test Tool Used:: Pulmonary QOL and PHQ-9 Questionnaire Referred to MD for counseling:: No Referral to Behavioral Health PS - Interventions: Yes: Attend Stress Management Classes Plan Interventions/Plan:: Assess stressors,coping strategies & signs of derpression on admission, Instruct/assist pt to develop coping & personal stress Mgt strategies, Refer to Behavioral Health if appropriate, Refer to Physician if appropriate, Instruct patient to recognize signs & symptoms of depression, Instruct patient to recog and Other additional plan/intervention Psychosocial - Final Assess Visit Session Number:: 2 Problems/Goals History of Emotional Disorders: Anxious and Depression (Pt is looking for a new counselor.) Psychosocial Goals: 1. Patient is free from overwhelming symtoms of depression (or anxiety, 2. Identifies personal stressors & states the strategies for managing, 3. Identifies activities to decrease isolation and/or symptoms of, 4. Improved psychosocial coping skills., 5. Verbalizes coping strategies., 6. Adequate treatment of depression. and 7. Improved Q.O.L. Self-reported stressors: Other Psychosocial Test Tool Used:: Pulmonary QOL and PHQ-9 Questionnaire Referred to MD for counseling:: No Referral to Behavioral Health PS - Interventions: Yes: Attend Stress Management Classes Plan Interventions/Plan:: Assess stressors,coping strategies & signs of derpression on admission, Instruct/assist pt to develop coping & personal stress Mgt strategies, Refer to Behavioral Health if appropriate, Refer to Physician if appropriate, Instruct patient to recognize signs & symptoms of depression, Instruct patient to recog and Other additional plan/intervention Oxygen & Oxygen Titration Init Visit Session Number:: 2 Initial Assessment SpO2:: 91 Oxygen & Oxygen Titration 30D Visit Date of Eval: 05/28/24 Session Number:: 2 Reassessment Reassessment- 30 Days: Demonstrate knowledge of O2 Rx at rest & w/exercise SpO2:: 91 Oxygen & Oxygen Titration 60D Visit Date of Eval: 05/28/24 Session Number:: 2 Reassessment SpO2:: 91 Oxygen & Oxygen Titration 90D Visit Date of Eval: 05/28/24 Session Number:: 2 Reassessment SpO2:: 91 Oxygen & Oxygen Titration JOSE EDUARDO Visit Date of Eval: 05/28/24 Session Number:: 2 Reassessment SpO2:: 91 Core Components - Initial Visit Session Number:: 2 Hypertension Hypertension Diagnosis:: Hypertension ICD-10 I10 BP: 124/82 [place] [employer] Hypertension Guidelines Blood Pressure: 142/80 Outcomes/Goals: Able to verbalize/achieve optimal blood pressure <130/80, Incorporates diet changes & exercise for blood pressure control by DC and Other additional outcomes/goals Tobacco - Initial Assessment Tobacco Program Goals Stages of Change:: Action Do you have family support?: Yes Core Components - 30 DAYS Visit Date of Eval: 05/28/24 Session Number:: 2 Hypertension Hypertension Diagnosis:: Hypertension ICD-10 I10 Resting Blood Pressure:: 124/82 [place] [employer] Hypertension Guidelines Peak Exercise Blood Pressure:: 142/80 Change in medication: No Outcomes/Goals: Able to verbalize/achieve optimal blood pressure <130/80, Incorporates diet changes & exercise for blood pressure control by DC and Other additional outcomes/goals Interventions/plan: Instruct on optimal blood pressure, hypertension & medications, Instruct on effects of sodium, alcohol, stress, exercise &hypertension and Other additional plan/interventions Tobacco - 30-Day Tobacco Program Goals Stages of Change:: Action Learning Barriers: Participates in education Do you have family support?: Yes Exacerbation Mgmt & Airway Clearance Reassessment: Demonstrates knowledge of O2 Rx at rest Medication Medication list reviewed:: Yes Taking medications 100% of the time:: Met Medication reassessment: Yes: Pt demonstrates correct technique timing for MDI, Yes: Pt demonstrates correct technique timing for DPI, Yes: Pt demonstrates correct technique timing for NEB and Yes: Pt demonstrates correct technique timing for spacer Core Components - 60 DAYS Visit Session Number:: 2 Hypertension Hypertension Diagnosis:: Hypertension ICD-10 I10 Resting Blood Pressure:: 124/82 [place] [employer] Hypertension Guidelines Peak Exercise Blood Pressure:: 142/80 Change in medication: No Outcomes/Goals: Able to verbalize/achieve optimal blood pressure <130/80, Incorporates diet changes & exercise for blood pressure control by DC and Other additional outcomes/goals Interventions/plan: Instruct on optimal blood pressure, hypertension & medications, Instruct on effects of sodium, alcohol, stress, exercise &hypertension and Other additional plan/interventions Tobacco - 60-Day Tobacco Program Goals Stages of Change:: Action Learning Barriers: Participates in education Do you have family support?: Yes Exacerbation Mgmt & Airway Clearance Reassessment: Demonstrates knowledge of O2 Rx at rest Medication Taking medications 100% of the time:: Met Medication reassessment: Yes: Pt demonstrates correct technique timing for MDI, Yes: Pt demonstrates correct technique timing for DPI, Yes: Pt demonstrates correct technique timing for NEB and Yes: Pt demonstrates correct technique timing for spacer Core Components - 90 DAYS Visit Session Number:: 2 Hypertension Hypertension Diagnosis:: Hypertension ICD-10 I10 Resting Blood Pressure:: 124/82 [place] [employer] Hypertension Guidelines Peak Exercise Blood Pressure:: 142/80 Outcomes/Goals: Able to verbalize/achieve optimal blood pressure <130/80, Incorporates diet changes & exercise for blood pressure control by DC and Other additional outcomes/goals Interventions/plan: Instruct on optimal blood pressure, hypertension & medications, Instruct on effects of sodium, alcohol, stress, exercise &hypertension and Other additional plan/interventions Tobacco - 90-Day Tobacco Program Goals Stages of Change:: Action Learning Barriers: Participates in education Do you have family support?: Yes Medication Medication reassessment: Yes: Pt demonstrates correct technique timing for MDI, Yes: Pt demonstrates correct technique timing for DPI, Yes: Pt demonstrates correct technique timing for NEB and Yes: Pt demonstrates correct technique timing for spacer Core Components - Final Visit Session Number:: 2 Hypertension Hypertension Diagnosis:: Hypertension ICD-10 I10 Resting Blood Pressure:: 124/82 [place] [employer] Hypertension Guidelines Peak Exercise Blood Pressure:: 142/80 Outcomes/Goals: Able to verbalize/achieve optimal blood pressure <130/80, Incorporates diet changes & exercise for blood pressure control by DC and Other additional outcomes/goals Tobacco - Final Tobacco Program Goals Stages of Change:: Action Learning Barriers: Participates in education Do you have family support?: Yes Medication Medication reassessment: Yes: Pt demonstrates correct technique timing for MDI, Yes: Pt demonstrates correct technique timing for DPI, Yes: Pt demonstrates correct technique timing for NEB and Yes: Pt demonstrates correct technique timing for spacer Patient Health Questionnaire PHQ-9 Screening 30-Day Re-eval Assessment: 1. Little interest or pleasure in doing things: Not at all 2. Feeling down, depressed, or hopeless: Several days 3. Trouble falling or staying asleep, or sleeping too much: Several days 4. Feeling tired or having little energy: Several days 5. Poor appetite or overeating: Several days 6. Feeling bad about yourself -- or that you are a failure or have let yourself or your family down: Not at all 7. Trouble concentrating on things, such as reading the newspaper or watching television: Nearly every day 8. Moving or speaking so slowly that other people could have noticed. Or the opposite - being so fidgety or restless that you have been moving around a lot more than usual: Not at all 9. Thoughts that you would be better off , or of hurting yourself in some way: Not at all How difficult have these problems made it for you to do your work, take care of things at home, or get along with other people?: Somewhat difficult Total Score: 7 Knowledge Questionaire (BCKQ) Information Information: [place] COPD Knowledge Questionnaire (BCKQ) This questionnaire is designed to find out what you know about your lung problem. It should be completed without help form anyone else. This usually takes between 10 and 20 minutes. Your answers will help us to find out what information you need to help you to understand and manage your lung condition. Frank the wales which you think is the correct answer. Self-Efficacy 6-Item Scale 30-Day Re-eval Assessment: We would like to know how confident you are in doing certain activities. Please select your confidence level for: Fatigue Select Number: 8 Physical Discomfort or Pain Select Number: 8 Emotional Distress Select Number: 8 Other Symptoms or Health Problems Select Number: 8 Different Tasks and Activities Select Number: 8 Medication Select Number: 10 Total Score:: 8 Nutrition Survey Nutrition Survey Instructions Scoring Instructions
[2024-05-28 11:11] VITALS: BP 124/82; BP 142/80; O2SAT 91; BMI 29.0
== END 2024-06-18 23:59 ==
LOC: PR 13:00
PROVIDERS: PCP Internal Medicine; Referring Provider Internal Medicine Critical Care Medicine; Visit Provider Internal Medicine Critical Care Medicine
DX: J44.9 Chronic obstructive pulmonary disease, unspecified (principal)
CPT/HCPCS: 97150; 94626

== ENCOUNTER 2024-07-12 13:00 | Outpatient (RCR) | payer MEDICAID, SELFPAY ==
[2024-05-28 11:11] VITALS: BMI 29.0
[2024-06-19 00:21] VITALS: BP 124/82; BP 142/80; BMI 29.0
--- NOTE | 2024-06-29 07:41 | PR.ITP_ITS ---
Exercise - Initial Assessment Visit Session Number:: 5 Physician Prescribed Exercise Modalities: Treadmill, SciFit Stepper and SciFit Lateral Arboles Target HR:: 122 (97-122) Current RPD:: 2-3 Maximum Exercise HR:: 123 Resting Blood Pressure: 134/78 Maximum Exercise Blood Pressure: 156/74 Minimum SpO2 with exercise: 89 EKG Type: NSR to ST Nutrition/Wt Mgmt - Initial Visit Session Number:: 5 Weight Management Admit Height:: 5 ft 7 in Admit Weight:: 185 lb Admit BMI:: 29.0 Nutrition/Wt Mgmt - 30-Day Visit Date of Eval: 06/29/24 Session Number:: 5 Weight Management Height: 5 ft 7 in Weight:: 185 lb BMI: 29.0 Nutrition/Wt Mgmt - 60-Day Visit Date of Eval: 06/29/24 Session Number:: 5 Weight Management Height: 5 ft 7 in Weight:: 185 lb BMI: 29.0 Weight Goals Progress:: Not progressing (Pt has attended 5 sessions. Pt has missed due to car trouble.) Nutrition/Wt Mgmt - 90-Day Visit Session Number:: 5 Weight Management Height: 5 ft 7 in Weight:: 185 lb BMI: 29.0 Weight Goals Progress:: Not progressing (Pt has attended 5 sessions. Pt has missed due to car trouble.) Nutrition/Wt Mgmt - Final Visit Session Number:: 5 Weight Management Height: 5 ft 7 in Weight:: 185 lb BMI: 29.0 Psychosocial - Initial Assess Visit Session Number:: 5 Problems/Goals History of Emotional Disorders: Anxious and Depression (Pt is looking for a new counselor.) Psychosocial Goals: 1. Patient is free from overwhelming symtoms of depression (or anxiety, 2. Identifies personal stressors & states the strategies for managing, 3. Identifies activities to decrease isolation and/or symptoms of, 4. Improved psychosocial coping skills., 5. Verbalizes coping strategies., 6. Adequate treatment of depression. and 7. Improved Q.O.L. Self-reported stressors: Family Psychosocial Test Tool Used:: PHQ-9 Questionnaire Referral to Behavioral Health PS - Interventions: Yes: Attend Stress Management Classes Intervention/Plan: See List Interventions/Plan:: Assess stressors,coping strategies & signs of derpression on admission, Instruct/assist pt to develop coping & personal stress Mgt strategies, Refer to Behavioral Health if appropriate, Refer to Physician if appropriate, Instruct patient to recognize signs & symptoms of depression and Instruct patient to recog Psychosocial - 30-Day Visit Date of Eval: 06/29/24 Session Number:: 5 Problems/Goals History of Emotional Disorders: Anxious and Depression (Pt is looking for a new counselor.) Psychosocial Goals: 1. Patient is free from overwhelming symtoms of depression (or anxiety, 2. Identifies personal stressors & states the strategies for managing, 3. Identifies activities to decrease isolation and/or symptoms of, 4. Improved psychosocial coping skills., 5. Verbalizes coping strategies., 6. Adequate treatment of depression. and 7. Improved Q.O.L. Self-reported stressors: Family Psychosocial Test Tool Used:: PHQ-9 Questionnaire Referral to Behavioral Health PS - Interventions: Yes: Attend Stress Management Classes Plan Interventions/Plan:: Assess stressors,coping strategies & signs of derpression on admission, Instruct/assist pt to develop coping & personal stress Mgt strategies, Refer to Behavioral Health if appropriate, Refer to Physician if appropriate, Instruct patient to recognize signs & symptoms of depression and Instruct patient to recog Psychosocial - 60-Day Visit Date of Eval: 06/29/24 Session Number:: 5 Problems/Goals History of Emotional Disorders: Anxious and Depression (Pt is looking for a new counselor.) Psychosocial Goals: 1. Patient is free from overwhelming symtoms of depression (or anxiety, 2. Identifies personal stressors & states the strategies for managing, 3. Identifies activities to decrease isolation and/or symptoms of, 4. Improved psychosocial coping skills., 5. Verbalizes coping strategies., 6. Adequate treatment of depression. and 7. Improved Q.O.L. Self-reported stressors: Family Psychosocial Test Tool Used:: PHQ-9 Questionnaire Referral to Behavioral Health PS - Interventions: Yes: Attend Stress Management Classes Plan Interventions/Plan:: Assess stressors,coping strategies & signs of derpression on admission, Instruct/assist pt to develop coping & personal stress Mgt strategies, Refer to Behavioral Health if appropriate, Refer to Physician if appropriate, Instruct patient to recognize signs & symptoms of depression and Instruct patient to recog Psychosocial - 90-Day Visit Session Number:: 5 Problems/Goals History of Emotional Disorders: Anxious and Depression (Pt is looking for a new counselor.) Psychosocial Goals: 1. Patient is free from overwhelming symtoms of depression (or anxiety, 2. Identifies personal stressors & states the strategies for managing, 3. Identifies activities to decrease isolation and/or symptoms of, 4. Improved psychosocial coping skills., 5. Verbalizes coping strategies., 6. Adequate treatment of depression. and 7. Improved Q.O.L. Self-reported stressors: Family Psychosocial Test Tool Used:: PHQ-9 Questionnaire Referral to Behavioral Health PS - Interventions: Yes: Attend Stress Management Classes Plan Interventions/Plan:: Assess stressors,coping strategies & signs of derpression on admission, Instruct/assist pt to develop coping & personal stress Mgt strategies, Refer to Behavioral Health if appropriate, Refer to Physician if appropriate, Instruct patient to recognize signs & symptoms of depression and Instruct patient to recog Psychosocial - Final Assess Visit Session Number:: 5 Problems/Goals History of Emotional Disorders: Anxious and Depression (Pt is looking for a new counselor.) Psychosocial Goals: 1. Patient is free from overwhelming symtoms of depression (or anxiety, 2. Identifies personal stressors & states the strategies for managing, 3. Identifies activities to decrease isolation and/or symptoms of, 4. Improved psychosocial coping skills., 5. Verbalizes coping strategies., 6. Adequate treatment of depression. and 7. Improved Q.O.L. Self-reported stressors: Family Psychosocial Test Tool Used:: PHQ-9 Questionnaire Referral to Behavioral Health PS - Interventions: Yes: Attend Stress Management Classes Plan Interventions/Plan:: Assess stressors,coping strategies & signs of derpression on admission, Instruct/assist pt to develop coping & personal stress Mgt strategies, Refer to Behavioral Health if appropriate, Refer to Physician if appropriate, Instruct patient to recognize signs & symptoms of depression and Instruct patient to recog Oxygen & Oxygen Titration Init Visit Session Number:: 5 Initial Assessment SpO2:: 89 Oxygen & Oxygen Titration 30D Visit Date of Eval: 06/29/24 Session Number:: 5 Reassessment SpO2:: 89 Oxygen & Oxygen Titration 60D Visit Date of Eval: 06/29/24 Session Number:: 5 Reassessment Reassessment- 60 Days: Demonstrate knowledge of O2 Rx at rest & w/exercise SpO2:: 89 Oxygen & Oxygen Titration 90D Visit Date of Eval: 06/29/24 Session Number:: 5 Reassessment SpO2:: 89 Oxygen & Oxygen Titration JOSE EDUARDO Visit Date of Eval: 06/29/24 Session Number:: 5 Reassessment SpO2:: 89 Core Components - Initial Visit Session Number:: 5 Hypertension Hypertension Diagnosis:: Hypertension ICD-10 I10 BP: 134/78 [place] [employer] Hypertension Guidelines Blood Pressure: 159/74 Outcomes/Goals: Able to verbalize/achieve optimal blood pressure <130/80 and Incorporates diet changes & exercise for blood pressure control by DC Tobacco - Initial Assessment Tobacco Program Goals Tobacco Use: Non-smoker Smoking Cessation Referral:: No Individual Education/Counseling:: No Education Schedule Given:: Yes Gave Education Materials For:: Tobacco Triggers, Pulmonary Disease, Risk Factors, Breathing Techniques, Medical Compliance, Pulmonary A&P, Exacerbation Signs & Symptoms and Stress & Relaxation Diabetes Diabetes:: No Core Components - 30 DAYS Visit Date of Eval: 06/29/24 Session Number:: 5 Hypertension Hypertension Diagnosis:: Hypertension ICD-10 I10 Resting Blood Pressure:: 134/78 [place] [employer] Hypertension Guidelines Peak Exercise Blood Pressure:: 159/74 Outcomes/Goals: Able to verbalize/achieve optimal blood pressure <130/80 and Incorporates diet changes & exercise for blood pressure control by DC Interventions/plan: Instruct on optimal blood pressure, hypertension & medications and Instruct on effects of sodium, alcohol, stress, exercise &hypert ension 30 day Reassessments:: Not Met (Pt has only attended 5 sessions in 60 days. Pt has had car trouble.) Tobacco - 30-Day Tobacco Program Goals Tobacco Use: Non-smoker Smoking Cessation Referral:: No Education Schedule Given:: Yes Gave Education Materials For:: Tobacco Triggers, Pulmonary Disease, Risk Factors, Breathing Techniques, Medical Compliance, Pulmonary A&P, Exacerbation Signs & Symptoms and Stress & Relaxation 30-day Reassessments:: Not Met Reassessment Notes & Comments:: Pt has only attended 5 sessions in 60 days. Pt has had car trouble. Exacerbation Mgmt & Airway Clearance Reassessment: Demonstrates knowledge of O2 Rx at rest Medication Medication reassessment: Yes: Pt demonstrates correct technique timing for MDI, Yes: Pt demonstrates correct technique timing for DPI, Yes: Pt demonstrates correct technique timing for NEB and Yes: Pt demonstrates correct technique timing for spacer Diabetes Diabetes:: No Core Components - 60 DAYS Visit Date of Eval: 06/29/24 Session Number:: 5 Hypertension Hypertension Diagnosis:: Hypertension ICD-10 I10 Resting Blood Pressure:: 134/78 [place] [employer] Hypertension Guidelines Peak Exercise Blood Pressure:: 159/74 Outcomes/Goals: Able to verbalize/achieve optimal blood pressure <130/80 and Incorporates diet changes & exercise for blood pressure control by DC Interventions/plan: Instruct on optimal blood pressure, hypertension & medications and Instruct on effects of sodium, alcohol, stress, exercise &hypertension 60 day Reassessments:: Not Met (Pt has only attended 5 sessions in 60 days. Pt has had car trouble.) Tobacco - 60-Day Tobacco Program Goals Tobacco Use: Non-smoker Smoking Cessation Referral:: No Individual Education/Counseling:: No Education Schedule Given:: Yes Gave Education Materials For:: Tobacco Triggers, Pulmonary Disease, Risk Factors, Breathing Techniques, Medical Compliance, Pulmonary A&P, Exacerbation Signs & Symptoms and Stress & Relaxation 60-day Reassessments:: Not Met Reassessment Notes & Comments:: Pt has only attended 5 sessions in 60 days. Pt has had car trouble. Exacerbation Mgmt & Airway Clearance Reassessment: Demonstrates knowledge of O2 Rx at rest Medication Medication list reviewed:: Yes Taking medications 100% of the time:: Met Medication reassessment: Yes: Pt demonstrates correct technique timing for MDI, Yes: Pt demonstrates correct technique timing for DPI, Yes: Pt demonstrates correct technique timing for NEB and Yes: Pt demonstrates correct technique timing for spacer 60-day Reassessments:: Met Diabetes Diabetes:: No Core Components - 90 DAYS Visit Session Number:: 5 Hypertension Hypertension Diagnosis:: Hypertension ICD-10 I10 Resting Blood Pressure:: 134/78 [place] [employer] Hypertension Guidelines Peak Exercise Blood Pressure:: 159/74 Outcomes/Goals: Able to verbalize/achieve optimal blood pressure <130/80 and Incorporates diet changes & exercise for blood pressure control by DC Interventions/plan: Instruct on optimal blood pressure, hypertension & medications and Instruct on effects of sodium, alcohol, stress, exercise &hypertension 90 day Reassessments:: Not Met (Pt has only attended 5 sessions in 60 days. Pt has had car trouble.) Tobacco - 90-Day Tobacco Program Goals Tobacco Use: Non-smoker Smoking Cessation Referral:: No Individual Education/Counseling:: No Education Schedule Given:: Yes Gave Education Materials For:: Tobacco Triggers, Pulmonary Disease, Risk Factors, Breathing Techniques, Medical Compliance, Pulmonary A&P, Exacerbation Signs & Symptoms and Stress & Relaxation 90-day Reassessments:: Not Met Reassessment Notes & Comments:: Pt has only attended 5 sessions in 60 days. Pt has had car trouble. Medication Medication reassessment: Yes: Pt demonstrates correct technique timing for MDI, Yes: Pt demonstrates correct technique timing for DPI, Yes: Pt demonstrates correct technique timing for NEB and Yes: Pt demonstrates correct technique timing for spacer Diabetes Diabetes:: No Core Components - Final Visit Session Number:: 5 Hypertension Hypertension Diagnosis:: Hypertension ICD-10 I10 Resting Blood Pressure:: 134/78 [place] [employer] Hypertension Guidelines Peak Exercise Blood Pressure:: 159/74 Outcomes/Goals: Able to verbalize/achieve optimal blood pressure <130/80 and Incorporates diet changes & exercise for blood pressure control by DC Tobacco - Final Tobacco Program Goals Tobacco Use: Non-smoker Smoking Cessation Referral:: No Individual Education/Counseling:: No Education Schedule Given:: Yes Medication Medication reassessment: Yes: Pt demonstrates correct technique timing for MDI, Yes: Pt demonstrates correct technique timing for DPI, Yes: Pt demonstrates correct technique timing for NEB and Yes: Pt demonstrates correct technique timing for spacer Diabetes Diabetes:: No Patient Health Questionnaire PHQ-9 Screening 60-Day Re-eval Assessment: 1. Little interest or pleasure in doing things: Not at all 2. Feeling down, depressed, or hopeless: Several days 3. Trouble falling or staying asleep, or sleeping too much: Several days 4. Feeling tired or having little energy: Several days 5. Poor appetite or overeating: Several days 6. Feeling bad about yourself -- or that you are a failure or have let yourself or your family down: Not at all 7. Trouble concentrating on things, such as reading the newspaper or watching television: Nearly every day 8. Moving or speaking so slowly that other people could have noticed. Or the opposite - being so fidgety or restless that you have been moving around a lot more than usual: Not at all 9. Thoughts that you would be better off , or of hurting yourself in some way: Not at all How difficult have these problems made it for you to do your work, take care of things at home, or get along with other people?: Somewhat difficult Total Score: 7 Knowledge Questionaire (BCKQ) Information Information: [place] COPD Knowledge Questionnaire (BCKQ) This questionnaire is designed to find out what you know about your lung problem. It should be completed without help form anyone else. This usually takes between 10 and 20 minutes. Your answers will help us to find out what information you need to help you to understand and manage your lung condition. [place] which you think is the correct answer. Self-Efficacy 6-Item Scale 60-Day Re-eval Assessment: We would like to know how confident you are in doing certain activities. Please select your confidence level for: Fatigue Select Number: 8 Physical Discomfort or Pain Select Number: 8 Emotional Distress Select Number: 8 Other Symptoms or Health Problems Select Number: 8 Different Tasks and Activities Select Number: 8 Medication Select Number: 10 Total Score:: 8 Nutrition Survey Nutrition Survey Instructions Scoring Instructions
[2024-06-29 07:51] VITALS: BP 134/78; O2SAT 89; BMI 29.0
[2024-06-29 08:00] VITALS: BP 134/78; BP 159/74
== END 2024-07-16 23:59 ==
LOC: PR 13:00
PROVIDERS: PCP Internal Medicine; Referring Provider Internal Medicine Critical Care Medicine; Visit Provider Internal Medicine Critical Care Medicine
DX: J44.9 Chronic obstructive pulmonary disease, unspecified (principal)
CPT/HCPCS: 97150; 94626

== ENCOUNTER 2024-08-16 13:00 | Outpatient (RCR) | payer MEDICAID, SELFPAY ==
[2024-06-29 07:51] VITALS: BMI 29.0
[2024-07-17 01:44] VITALS: BP 134/78; BP 159/74; BMI 29.0
--- NOTE | 2024-07-27 07:12 | PCM.PR.TP ---
Exercise - Initial Assessment Visit Session Number:: 14 Physician Prescribed Exercise Modalities: Treadmill, SciFit Stepper and SciFit Lateral [place] Current METSs:: 3.2 Target HR:: 130 (97-130) Current RPD:: 2 Maximum Exercise HR:: 112 Resting Blood Pressure: 122/72 Maximum Exercise Blood Pressure: 150/88 Minimum SpO2 with exercise: 90 EKG Type: NSR to ST with rare ectopy Nutrition/Wt Mgmt - Initial Visit Session Number:: 14 Weight Management Admit Height:: 5 ft 7 in Admit Weight:: 193 lb Admit BMI:: 30.2 Nutrition/Wt Mgmt - 30-Day Visit Date of Eval: 07/27/24 Session Number:: 14 Weight Management Height: 5 ft 7 in Weight:: 193 lb BMI: 30.2 Nutrition/Wt Mgmt - 60-Day Visit Session Number:: 14 Weight Management Height: 5 ft 7 in Weight:: 193 lb BMI: 30.2 Weight Goals Progress:: Progressing (Pt attended nutrition class yesterday. Heart healthy low sodium diet encouraged.) Nutrition/Wt Mgmt - 90-Day Visit Date of Eval: 07/27/24 Session Number:: 14 Weight Management Height: 5 ft 7 in Weight:: 193 lb BMI: 30.2 Weight Goals Progress:: Progressing (Pt attended nutrition class yesterday. Heart healthy low sodium diet encouraged.) Nutrition/Wt Mgmt - Final Visit Session Number:: 14 Weight Management Height: 5 ft 7 in Weight:: 193 lb BMI: 30.2 Psychosocial - Initial Assess Visit Session Number:: 14 Problems/Goals History of Emotional Disorders: Anxious and Depression Psychosocial Goals: 1. Patient is free from overwhelming symtoms of depression (or anxiety, 2. Identifies personal stressors & states the strategies for managing, 3. Identifies activities to decrease isolation and/or symptoms of, 4. Improved psychosocial coping skills., 5. Verbalizes coping strategies., 6. Adequate treatment of depression. and 7. Improved Q.O.L. Psychosocial Test Tool Used:: Pulmonary QOL and PHQ-9 Questionnaire Referred to MD for counseling:: No Referral to Behavioral Health PS - Interventions: Yes: Attend Stress Management Classes Intervention/Plan: See List Interventions/Plan:: Assess stressors,coping strategies & signs of derpression on admission, Instruct/assist pt to develop coping & personal stress Mgt strategies, Refer to Behavioral Health if appropriate, Refer to Physician if appropriate, Instruct patient to recognize signs & symptoms of depression, Instruct patient to recog and Other additional plan/intervention Comments:: Pt is looking for a new counselor Psychosocial - 30-Day Visit Date of Eval: 07/27/24 Session Number:: 14 Problems/Goals History of Emotional Disorders: Anxious and Depression Psychosocial Goals: 1. Patient is free from overwhelming symtoms of depression (or anxiety, 2. Identifies personal stressors & states the strategies for managing, 3. Identifies activities to decrease isolation and/or symptoms of, 4. Improved psychosocial coping skills., 5. Verbalizes coping strategies., 6. Adequate treatment of depression. and 7. Improved Q.O.L. Psychosocial Test Tool Used:: Pulmonary QOL and PHQ-9 Questionnaire Referred to MD for counseling:: No Referral to Behavioral Health PS - Interventions: Yes: Attend Stress Management Classes Plan Interventions/Plan:: Assess stressors,coping strategies & signs of derpression on admission, Instruct/assist pt to develop coping & personal stress Mgt strategies, Refer to Behavioral Health if appropriate, Refer to Physician if appropriate, Instruct patient to recognize signs & symptoms of depression, Instruct patient to recog and Other additional plan/intervention Comments:: Pt is looking for a new counselor Psychosocial - 60-Day Visit Session Number:: 14 Problems/Goals History of Emotional Disorders: Anxious and Depression Psychosocial Goals: 1. Patient is free from overwhelming symtoms of depression (or anxiety, 2. Identifies personal stressors & states the strategies for managing, 3. Identifies activities to decrease isolation and/or symptoms of, 4. Improved psychosocial coping skills., 5. Verbalizes coping strategies., 6. Adequate treatment of depression. and 7. Improved Q.O.L. Psychosocial Test Tool Used:: Pulmonary QOL and PHQ-9 Questionnaire Referred to MD for counseling:: No Referral to Behavioral Health PS - Interventions: Yes: Attend Stress Management Classes Plan Interventions/Plan:: Assess stressors,coping strategies & signs of derpression on admission, Instruct/assist pt to develop coping & personal stress Mgt strategies, Refer to Behavioral Health if appropriate, Refer to Physician if appropriate, Instruct patient to recognize signs & symptoms of depression, Instruct patient to recog and Other additional plan/intervention Comments:: Pt is looking for a new counselor Psychosocial - 90-Day Visit Date of Eval: 07/27/24 Session Number:: 14 Problems/Goals History of Emotional Disorders: Anxious and Depression Psychosocial Goals: 1. Patient is free from overwhelming symtoms of depression (or anxiety, 2. Identifies personal stressors & states the strategies for managing, 3. Identifies activities to decrease isolation and/or symptoms of, 4. Improved psychosocial coping skills., 5. Verbalizes coping strategies., 6. Adequate treatment of depression. and 7. Improved Q.O.L. Psychosocial Test Tool Used:: Pulmonary QOL and PHQ-9 Questionnaire Referred to MD for counseling:: No Referral to Behavioral Health PS - Interventions: Yes: Attend Stress Management Classes Plan Interventions/Plan:: Assess stressors,coping strategies & signs of derpression on admission, Instruct/assist pt to develop coping & personal stress Mgt strategies, Refer to Behavioral Health if appropriate, Refer to Physician if appropriate, Instruct patient to recognize signs & symptoms of depression, Instruct patient to recog and Other additional plan/intervention Comments:: Pt is looking for a new counselor Psychosocial - Final Assess Visit Session Number:: 14 Problems/Goals History of Emotional Disorders: Anxious and Depression Psychosocial Goals: 1. Patient is free from overwhelming symtoms of depression (or anxiety, 2. Identifies personal stressors & states the strategies for managing, 3. Identifies activities to decrease isolation and/or symptoms of, 4. Improved psychosocial coping skills., 5. Verbalizes coping strategies., 6. Adequate treatment of depression. and 7. Improved Q.O.L. Psychosocial Test Tool Used:: Pulmonary QOL and PHQ-9 Questionnaire Referred to MD for counseling:: No Referral to Behavioral Health PS - Interventions: Yes: Attend Stress Management Classes Plan Interventions/Plan:: Assess stressors,coping strategies & signs of derpression on admission, Instruct/assist pt to develop coping & personal stress Mgt strategies, Refer to Behavioral Health if appropriate, Refer to Physician if appropriate, Instruct patient to recognize signs & symptoms of depression, Instruct patient to recog and Other additional plan/intervention Comments:: Pt is looking for a new counselor Oxygen & Oxygen Titration Init Visit Session Number:: 14 Initial Assessment SpO2:: 90 Oxygen & Oxygen Titration 30D Visit Date of Eval: 07/27/24 Session Number:: 14 Reassessment SpO2:: 90 Oxygen & Oxygen Titration 60D Visit Date of Eval: 07/27/24 Session Number:: 14 Reassessment SpO2:: 90 Oxygen & Oxygen Titration 90D Visit Date of Eval: 07/27/24 Session Number:: 14 Reassessment Oxygen & Oxygen Titration 90 days: None SpO2:: 90 Oxygen & Oxygen Titration JOSE EDUARDO Visit Date of Eval: 07/27/24 Session Number:: 14 Reassessment SpO2:: 90 [employer] Components - Initial Visit Session Number:: 14 Hypertension Hypertension Diagnosis:: Hypertension ICD-10 I10 BP: 122/72 [place] [employer] Hypertension Guidelines Blood Pressure: 150/88 Outcomes/Goals: Able to verbalize/achieve optimal blood pressure <130/80, Incorporates diet changes & exercise for blood pressure control by DC and Other additional outcomes/goals Tobacco - Initial Assessment Tobacco Program Goals Tobacco Use: Non-smoker Smoking Cessation Referral:: No Individual Education/Counseling:: No Education Schedule Given:: Yes Gave Education Materials For:: Tobacco Triggers, Pulmonary Disease, Risk Factors, Breathing Techniques, Medical Compliance, Pulmonary A&P, Exacerbation Signs & Symptoms and Stress & Relaxation Diabetes Diabetes:: No [employer]onents - 30 DAYS Visit Date of Eval: 07/27/24 Session Number:: 14 Hypertension Hypertension Diagnosis:: Hypertension ICD-10 I10 Resting Blood Pressure:: 122/72 [place] [employer] Hypertension Guidelines Peak Exercise Blood Pressure:: 150/88 Outcomes/Goals: Able to verbalize/achieve optimal blood pressure <130/80, Incorporates diet changes & exercise for blood pressure control by DC and Other additional outcomes/goals Interventions/plan: Instruct on optimal blood pressure, hypertension & medications, Instruct on effects of sodium, alcohol, stress, exercise &hypertension and Other additional plan/interventions 30 day Reassessments:: Met (Pt's BP's are within AHA normal limits on most days.) Tobacco - 30-Day Tobacco Program Goals Tobacco Use: Non-smoker Smoking Cessation Referral:: No Education Schedule Given:: Yes Gave Education Materials For:: Tobacco Triggers, Pulmonary Disease, Risk Factors, Breathing Techniques, Medical Compliance, Pulmonary A&P, Exacerbation Signs & Symptoms and Stress & Relaxation 30-day Reassessments:: Met (pt is a non smoker) Exacerbation Mgmt & Airway Clearance Bronchial Hygiene Plan: Yes: Pt demonstrates correctly for effective cough, Yes: Pt demo correct for CPT, Yes: Pt demo correct for device, Yes: Pt demo correct for NS nasal spray, Yes: Pt demo correct for sputum management, Yes: Pt demo correct for improved hydration, Yes: Pt demo correct for hand hygiene, Yes: Pt demo correct for evalute sputum, Yes: Pt demo correct for verbalize when to call MD and Yes: Pt demo correct for cleaning of respiratory equipment Medication Medication reassessment: Yes: Pt demonstrates correct technique timing for MDI, Yes: Pt demonstrates correct technique timing for DPI, Yes: Pt demonstrates correct technique timing for NEB and Yes: Pt demonstrates correct technique timing for spacer Diabetes Diabetes:: No [employer] - 60 DAYS Visit Session Number:: 14 Hypertension Hypertension Diagnosis:: Hypertension ICD-10 I10 Resting Blood Pressure:: 122/72 [place] [employer] Hypertension Guidelines Peak Exercise Blood Pressure:: 150/88 Outcomes/Goals: Able to verbalize/achieve optimal blood pressure <130/80, Incorporates diet changes & exercise for blood pressure control by DC and Other additional outcomes/goals Interventions/plan: Instruct on optimal blood pressure, hypertension & medications, Instruct on effects of sodium, alcohol, stress, exercise &hypertension and Other additional plan/interventions 60 day Reassessments:: Met (Pt's BP's are within AHA normal limits on most days.) Tobacco - 60-Day Tobacco Program Goals Tobacco Use: Non-smoker Smoking Cessation Referral:: No Individual Education/Counseling:: No Education Schedule Given:: Yes Gave Education Materials For:: Tobacco Triggers, Pulmonary Disease, Risk Factors, Breathing Techniques, Medical Compliance, Pulmonary A&P, Exacerbation Signs & Symptoms and Stress & Relaxation 60-day Reassessments:: Met (pt is a non smoker) Exacerbation Mgmt & Airway Clearance Bronchial Hygiene Plan: Yes: Pt demonstrates correctly for effective cough, Yes: Pt demo correct for CPT, Yes: Pt demo correct for device, Yes: Pt demo correct for NS nasal spray, Yes: Pt demo correct for sputum management, Yes: Pt demo correct for improved hydration, Yes: Pt demo correct for hand hygiene, Yes: Pt demo correct for evalute sputum, Yes: Pt demo correct for verbalize when to call MD and Yes: Pt demo correct for cleaning of respiratory equipment Medication Medication reassessment: Yes: Pt demonstrates correct technique timing for MDI, Yes: Pt demonstrates correct technique timing for DPI, Yes: Pt demonstrates correct technique timing for NEB and Yes: Pt demonstrates correct technique timing for spacer Diabetes Diabetes:: No [employer] Components - 90 DAYS Visit Date of Eval: 07/27/24 Session Number:: 14 Hypertension Hypertension Diagnosis:: Hypertension ICD-10 I10 Resting Blood Pressure:: 122/72 [place] [employer] Hypertension Guidelines Peak Exercise Blood Pressure:: 150/88 Outcomes/Goals: Able to verbalize/achieve optimal blood pressure <130/80, Incorporates diet changes & exercise for blood pressure control by DC and Other additional outcomes/goals Interventions/plan: Instruct on optimal blood pressure, hypertension & medications, Instruct on effects of sodium, alcohol, stress, exercise &hypertension and Other additional plan/interventions 90 day Reassessments:: Met (Pt's BP's are within AHA normal limits on most days.) Tobacco - 90-Day Tobacco Program Goals Tobacco Use: Non-smoker Smoking Cessation Referral:: No Individual Education/Counseling:: No Education Schedule Given:: Yes Gave Education Materials For:: Tobacco Triggers, Pulmonary Disease, Risk Factors, Breathing Techniques, Medical Compliance, Pulmonary A&P, Exacerbation Signs & Symptoms and Stress & Relaxation 90-day Reassessments:: Met (pt is a non smoker) Exacerbation Mgmt & Airway Clearance Reassessment: Demonstrates knowledge of O2 Rx at rest and Demonstrates knowledge of O2 Rx with exercise Bronchial Hygiene Plan: Yes: Pt demonstrates correctly for effective cough, Yes: Pt demo correct for CPT, Yes: Pt demo correct for device, Yes: Pt demo correct for NS nasal spray, Yes: Pt demo correct for sputum management, Yes: Pt demo correct for improved hydration, Yes: Pt demo correct for hand hygiene, Yes: Pt demo correct for evalute sputum, Yes: Pt demo correct for verbalize when to call MD and Yes: Pt demo correct for cleaning of respiratory equipment Medication Medication list reviewed:: Yes Taking medications 100% of the time:: Met Medication reassessment: Yes: Pt demonstrates correct technique timing for MDI, Yes: Pt demonstrates correct technique timing for DPI, Yes: Pt demonstrates correct technique timing for NEB and Yes: Pt demonstrates correct technique timing for spacer Diabetes Diabetes:: No Core Components - Final Visit Session Number:: 14 Hypertension Hypertension Diagnosis:: Hypertension ICD-10 I10 Resting Blood Pressure:: 122/72 [place] [employer] Hypertension Guidelines Peak Exercise Blood Pressure:: 150/88 Outcomes/Goals: Able to verbalize/achieve optimal blood pressure <130/80, Incorporates diet changes & exercise for blood pressure control by DC and Other additional outcomes/goals Tobacco - Final Tobacco Program Goals Tobacco Use: Non-smoker Smoking Cessation Referral:: No Individual Education/Counseling:: No Education Schedule Given:: Yes Exacerbation Mgmt & Airway Clearance Bronchial Hygiene Plan: Yes: Pt demonstrates correctly for effective cough, Yes: Pt demo correct for CPT, Yes: Pt demo correct for device, Yes: Pt demo correct for NS nasal spray, Yes: Pt demo correct for sputum management, Yes: Pt demo correct for improved hydration, Yes: Pt demo correct for hand hygiene, Yes: Pt demo correct for evalute sputum, Yes: Pt demo correct for verbalize when to call MD and Yes: Pt demo correct for cleaning of respiratory equipment Medication Medication reassessment: Yes: Pt demonstrates correct technique timing for MDI, Yes: Pt demonstrates correct technique timing for DPI, Yes: Pt demonstrates correct technique timing for NEB and Yes: Pt demonstrates correct technique timing for spacer Diabetes Diabetes:: No Patient Health Questionnaire PHQ-9 Screening 90-Day Re-eval Assessment: 1. Little interest or pleasure in doing things: Not at all 2. Feeling down, depressed, or hopeless: Several days 3. Trouble falling or staying asleep, or sleeping too much: Several days 4. Feeling tired or having little energy: Several days 5. Poor appetite or overeating: Several days 6. Feeling bad about yourself -- or that you are a failure or have let yourself or your family down: Not at all 7. Trouble concentrating on things, such as reading the newspaper or watching television: Nearly every day 8. Moving or speaking so slowly that other people could have noticed. Or the opposite - being so fidgety or restless that you have been moving around a lot more than usual: Not at all 9. Thoughts that you would be better off , or of hurting yourself in some way: Not at all How difficult have these problems made it for you to do your work, take care of things at home, or get along with other people?: Somewhat difficult Total Score: 7 Knowledge Questionaire (BCKQ) Information Information: [place] COPD Knowledge Questionnaire (BCKQ) This questionnaire is designed to find out what you know about your lung problem. It should be completed without help form anyone else. This usually takes between 10 and 20 minutes. Your answers will help us to find out what information you need to help you to understand and manage your lung condition. Frank the tribal which you think is the correct answer. Self-Efficacy 6-Item Scale 90-Day Re-eval Assessment: We would like to know how confident you are in doing certain activities. Please select your confidence level for: Fatigue Select Number: 8 Physical Discomfort or Pain Select Number: 8 Emotional Distress Select Number: 8 Other Symptoms or Health Problems Select Number: 8 Different Tasks and Activities Select Number: 8 Medication Select Number: 10 Total Score:: 8 Nutrition Survey Nutrition Survey Instructions Scoring Instructions
[2024-07-27 07:20] VITALS: BP 122/72; O2SAT 90
[2024-07-27 07:44] VITALS: BP 122/72; BP 150/88; BMI 30.2
== END 2024-08-16 23:59 ==
LOC: PR 13:00
PROVIDERS: PCP Internal Medicine; Referring Provider Internal Medicine Critical Care Medicine; Visit Provider Internal Medicine Critical Care Medicine
DX: J44.9 Chronic obstructive pulmonary disease, unspecified (principal)
CPT/HCPCS: 97150; 94626

== ENCOUNTER 2024-09-13 13:00 | Outpatient (RCR) | payer MEDICAID, SELFPAY ==
[2024-07-27 07:44] VITALS: BMI 30.2
[2024-08-17 00:51] VITALS: BP 122/72; BP 150/88; BMI 30.2
--- NOTE | 2024-08-26 08:18 | PR.ITP_ITS ---
Exercise - Initial Assessment Visit Session Number:: 23 Physician Prescribed Exercise Modalities: Treadmill, SciFit Stepper and SciFit Lateral [place] Current METSs:: 3.2 Resting Blood Pressure: 128/80 Maximum Exercise Blood Pressure: 160/90 Minimum SpO2 with exercise: 90 EKG Type: NSR to ST Nutrition/Wt Mgmt - Initial Visit Session Number:: 23 Weight Management Admit Height:: 5 ft 7 in Admit Weight:: 193 lb Admit BMI:: 30.2 Nutrition/Wt Mgmt - 30-Day Visit Date of Eval: 08/26/24 Session Number:: 23 Weight Management Height: 5 ft 7 in Weight:: 193 lb BMI: 30.2 Nutrition/Wt Mgmt - 60-Day Visit Session Number:: 23 Weight Management Height: 5 ft 7 in Weight:: 193 lb BMI: 30.2 Nutrition/Wt Mgmt - 90-Day Visit Session Number:: 23 Weight Management Height: 5 ft 7 in Weight:: 193 lb BMI: 30.2 Nutrition/Wt Mgmt - Final Visit Date of Eval: 08/26/24 Session Number:: 23 Weight Management Height: 5 ft 7 in Weight:: 193 lb BMI: 30.2 Weight Goals Progress:: Progressing (Pt has attended nutrition class. Low sodium heart healthy diet encouraged. Will continue to weigh pt weekly.) Psychosocial - Initial Assess Visit Session Number:: 23 Problems/Goals History of Emotional Disorders: Anxious and Depression Psychosocial Goals: 1. Patient is free from overwhelming symtoms of depression (or anxiety, 2. Identifies personal stressors & states the strategies for managing, 3. Identifies activities to decrease isolation and/or symptoms of, 4. Improved psychosocial coping skills., 5. Verbalizes coping strategies., 6. Adequate treatment of depression. and 7. Improved Q.O.L. Psychosocial Test Tool Used:: Pulmonary QOL and PHQ-9 Questionnaire PHQ-9 Score: 7 Referred to MD for counseling:: No Referral to Behavioral Health PS - Interventions: Yes: Attend Stress Management Classes Intervention/Plan: See List Interventions/Plan:: Assess stressors,coping strategies & signs of derpression on admission, Instruct/assist pt to develop coping & personal stress Mgt strategies, Refer to Behavioral Health if appropriate, Refer to Physician if appropriate, Instruct patient to recognize signs & symptoms of depression and Instruct patient to recog Comments:: Pt has been looking for a new counselor. Psychosocial - 30-Day Visit Date of Eval: 08/26/24 Session Number:: 23 Problems/Goals History of Emotional Disorders: Anxious and Depression Psychosocial Goals: 1. Patient is free from overwhelming symtoms of depression (or anxiety, 2. Identifies personal stressors & states the strategies for managing, 3. Identifies activities to decrease isolation and/or symptoms of, 4. Improved psychosocial coping skills., 5. Verbalizes coping strategies., 6. Adequate treatment of depression. and 7. Improved Q.O.L. Psychosocial Test Tool Used:: Pulmonary QOL and PHQ-9 Questionnaire PHQ-9 Score: 7 Referred to MD for counseling:: No Referral to Behavioral Health PS - Interventions: Yes: Attend Stress Management Classes Plan Interventions/Plan:: Assess stressors,coping strategies & signs of derpression on admission, Instruct/assist pt to develop coping & personal stress Mgt strategies, Refer to Behavioral Health if appropriate, Refer to Physician if appropriate, Instruct patient to recognize signs & symptoms of depression and Instruct patient to recog Comments:: Pt has been looking for a new counselor. Psychosocial - 60-Day Visit Session Number:: 23 Problems/Goals History of Emotional Disorders: Anxious and Depression Psychosocial Goals: 1. Patient is free from overwhelming symtoms of depression (or anxiety, 2. Identifies personal stressors & states the strategies for managing, 3. Identifies activities to decrease isolation and/or symptoms of, 4. Improved psychosocial coping skills., 5. Verbalizes coping strategies., 6. Adequate treatment of depression. and 7. Improved Q.O.L. Depression:: Self report and Anxiety Psychosocial Test Tool Used:: Pulmonary QOL and PHQ-9 Questionnaire PHQ-9 Score: 7 Referred to MD for counseling:: No Referral to Behavioral Health PS - Interventions: Yes: Attend Stress Management Classes Plan Interventions/Plan:: Assess stressors,coping strategies & signs of derpression on admission, Instruct/assist pt to develop coping & personal stress Mgt strategies, Refer to Behavioral Health if appropriate, Refer to Physician if appropriate, Instruct patient to recognize signs & symptoms of depression and Instruct patient to recog Comments:: Pt has been looking for a new counselor. Psychosocial - 90-Day Visit Session Number:: 23 Problems/Goals History of Emotional Disorders: Anxious and Depression Psychosocial Goals: 1. Patient is free from overwhelming symtoms of depression (or anxiety, 2. Identifies personal stressors & states the strategies for managing, 3. Identifies activities to decrease isolation and/or symptoms of, 4. Improved psychosocial coping skills., 5. Verbalizes coping strategies., 6. Adequate treatment of depression. and 7. Improved Q.O.L. Depression:: Self report and Anxiety Psychosocial Test Tool Used:: Pulmonary QOL and PHQ-9 Questionnaire PHQ-9 Score: 7 Referred to MD for counseling:: No Referral to Behavioral Health PS - Interventions: Yes: Attend Stress Management Classes Plan Interventions/Plan:: Assess stressors,coping strategies & signs of derpression on admission, Instruct/assist pt to develop coping & personal stress Mgt strategies, Refer to Behavioral Health if appropriate, Refer to Physician if appropriate, Instruct patient to recognize signs & symptoms of depression and Instruct patient to recog Comments:: Pt has been looking for a new counselor. Psychosocial - Final Assess Visit Date of Eval: 08/26/24 Session Number:: 23 Problems/Goals History of Emotional Disorders: Anxious and Depression Psychosocial Goals: 1. Patient is free from overwhelming symtoms of depression (or anxiety, 2. Identifies personal stressors & states the strategies for managing, 3. Identifies activities to decrease isolation and/or symptoms of, 4. Improved psychosocial coping skills., 5. Verbalizes coping strategies., 6. Adequate treatment of depression. and 7. Improved Q.O.L. Depression:: Self report and Anxiety Psychosocial Test Tool Used:: Pulmonary QOL and PHQ-9 Questionnaire PHQ-9 Score: 7 Referred to MD for counseling:: No Referral to Behavioral Health PS - Interventions: Yes: Attend Stress Management Classes Plan Interventions/Plan:: Assess stressors,coping strategies & signs of derpression on admission, Instruct/assist pt to develop coping & personal stress Mgt strategies, Refer to Behavioral Health if appropriate, Refer to Physician if appropriate, Instruct patient to recognize signs & symptoms of depression and Instruct patient to recog Comments:: Pt has been looking for a new counselor. Oxygen & Oxygen Titration Init Visit Session Number:: 23 Initial Assessment SpO2:: 90 Oxygen & Oxygen Titration 30D Visit Date of Eval: 08/26/24 Session Number:: 23 Reassessment SpO2:: 90 Oxygen & Oxygen Titration 60D Visit Date of Eval: 08/26/24 Session Number:: 23 Reassessment SpO2:: 90 Oxygen & Oxygen Titration 90D Visit Date of Eval: 08/26/24 Session Number:: 23 Reassessment SpO2:: 90 Oxygen & Oxygen Titration JOSE EDUARDO Visit Date of Eval: 08/26/24 Session Number:: 23 Reassessment Oxygen & Oxygen Titration Final: None SpO2:: 90 Core Components - Initial Visit Session Number:: 23 Hypertension Hypertension Diagnosis:: Hypertension ICD-10 I10 BP: 128/80 [place] Hypertension Guidelines Blood Pressure: 160/90 Outcomes/Goals: Able to verbalize/achieve optimal blood pressure <130/80, Incorporates diet changes & exercise for blood pressure control by DC and Other additional outcomes/goals Tobacco - Initial Assessment Tobacco Program Goals Do you have family support?: Yes Tobacco Use: Non-smoker Education Schedule Given:: Yes Diabetes Diabetes:: No [employer] Components - 30 DAYS Visit Date of Eval: 08/26/24 Session Number:: 23 Hypertension Hypertension Diagnosis:: Hypertension ICD-10 I10 Resting Blood Pressure:: 128/80 [place] [employer] Hypertension Guidelines Peak Exercise Blood Pressure:: 160/90 Outcomes/Goals: Able to verbalize/achieve optimal blood pressure <130/80, Incorporates diet changes & exercise for blood pressure control by DC and Other additional outcomes/goals Tobacco - 30-Day Tobacco Program Goals Do you have family support?: Yes Tobacco Use: Non-smoker Education Schedule Given:: Yes Exacerbation Mgmt & Airway Clearance Bronchial Hygiene Plan: Yes: Pt demonstrates correctly for effective cough, Yes: Pt demo correct for CPT, Yes: Pt demo correct for device, Yes: Pt demo correct for NS nasal spray, Yes: Pt demo correct for sputum management, Yes: Pt demo correct for improved hydration, Yes: Pt demo correct for hand hygiene, Yes: Pt demo correct for evalute sputum, Yes: Pt demo correct for verbalize when to call MD and Yes: Pt demo correct for cleaning of respiratory equipment Medication Medication reassessment: Yes: Pt demonstrates correct technique timing for MDI, Yes: Pt demonstrates correct technique timing for DPI, Yes: Pt demonstrates correct technique timing for NEB and Yes: Pt demonstrates correct technique timing for spacer Diabetes Diabetes:: No [employer] Components - 60 DAYS Visit Session Number:: 23 Hypertension Hypertension Diagnosis:: Hypertension ICD-10 I10 Resting Blood Pressure:: 128/80 [place] [employer] Hypertension Guidelines Peak Exercise Blood Pressure:: 160/90 Outcomes/Goals: Able to verbalize/achieve optimal blood pressure <130/80, Incorporates diet changes & exercise for blood pressure control by DC and Other additional outcomes/goals Tobacco - 60-Day Tobacco Program Goals Do you have family support?: Yes Tobacco Use: Non-smoker Education Schedule Given:: Yes Exacerbation Mgmt & Airway Clearance Bronchial Hygiene Plan: Yes: Pt demonstrates correctly for effective cough, Yes: Pt demo correct for CPT, Yes: Pt demo correct for device, Yes: Pt demo correct for NS nasal spray, Yes: Pt demo correct for sputum management, Yes: Pt demo correct for improved hydration, Yes: Pt demo correct for hand hygiene, Yes: Pt demo correct for evalute sputum, Yes: Pt demo correct for verbalize when to call MD and Yes: Pt demo correct for cleaning of respiratory equipment Medication Medication reassessment: Yes: Pt demonstrates correct technique timing for MDI, Yes: Pt demonstrates correct technique timing for DPI, Yes: Pt demonstrates correct technique timing for NEB and Yes: Pt demonstrates correct technique rocco ing for spacer Diabetes Diabetes:: No Core Components - 90 DAYS Visit Session Number:: 23 Hypertension Hypertension Diagnosis:: Hypertension ICD-10 I10 Resting Blood Pressure:: 128/80 [place] [employer] Hypertension Guidelines Peak Exercise Blood Pressure:: 160/90 Outcomes/Goals: Able to verbalize/achieve optimal blood pressure <130/80, Incorporates diet changes & exercise for blood pressure control by DC and Other additional outcomes/goals Tobacco - 90-Day Tobacco Program Goals Do you have family support?: Yes Tobacco Use: Non-smoker Education Schedule Given:: Yes Exacerbation Mgmt & Airway Clearance Bronchial Hygiene Plan: Yes: Pt demonstrates correctly for effective cough, Yes: Pt demo correct for CPT, Yes: Pt demo correct for device, Yes: Pt demo correct for NS nasal spray, Yes: Pt demo correct for sputum management, Yes: Pt demo correct for improved hydration, Yes: Pt demo correct for hand hygiene, Yes: Pt demo correct for evalute sputum, Yes: Pt demo correct for verbalize when to call MD and Yes: Pt demo correct for cleaning of respiratory equipment Medication Medication reassessment: Yes: Pt demonstrates correct technique timing for MDI, Yes: Pt demonstrates correct technique timing for DPI, Yes: Pt demonstrates correct technique timing for NEB and Yes: Pt demonstrates correct technique timing for spacer Diabetes Diabetes:: No Core Components - Final Visit Date of Eval: 08/26/24 Session Number:: 23 Hypertension Hypertension Diagnosis:: Hypertension ICD-10 I10 Resting Blood Pressure:: 128/80 [place] [employer] Hypertension Guidelines Peak Exercise Blood Pressure:: 160/90 Outcomes/Goals: Able to verbalize/achieve optimal blood pressure <130/80, Incorporates diet changes & exercise for blood pressure control by DC and Other additional outcomes/goals Tobacco - Final Tobacco Program Goals Do you have family support?: Yes Tobacco Use: Non-smoker Education Schedule Given:: Yes Exacerbation Mgmt & Airway Clearance Final Assessment: Demonstrates knowledge of O2 Rx at rest, Demonstrates knowledge of O2 Rx with exercise, Using O2 as prescribed, Has home O2 as prescribed and Uses port O2 as prescribed Bronchial Hygiene Plan: Yes: Pt demonstrates correctly for effective cough, Yes: Pt demo correct for CPT, Yes: Pt demo correct for device, Yes: Pt demo correct for NS nasal spray, Yes: Pt demo correct for sputum management, Yes: Pt demo correct for improved hydration, Yes: Pt demo correct for hand hygiene, Yes: Pt demo correct for evalute sputum, Yes: Pt demo correct for verbalize when to call MD and Yes: Pt demo correct for cleaning of respiratory equipment Medication Medication list reviewed:: Yes Taking medications 100% of the time:: Met Medication reassessment: Yes: Pt demonstrates correct technique timing for MDI, Yes: Pt demonstrates correct technique timing for DPI, Yes: Pt demonstrates correct technique timing for NEB and Yes: Pt demonstrates correct technique timing for spacer Diabetes Diabetes:: No Patient Health Questionnaire PHQ-9 Screening Discharge Assessment: 1. Little interest or pleasure in doing things: Not at all 2. Feeling down, depressed, or hopeless: Several days 3. Trouble falling or staying asleep, or sleeping too much: Several days 4. Feeling tired or having little energy: Several days 5. Poor appetite or overeating: Several days 6. Feeling bad about yourself -- or that you are a failure or have let yourself or your family down: Not at all 7. Trouble concentrating on things, such as reading the newspaper or watching television: Nearly every day 8. Moving or speaking so slowly that other people could have noticed. Or the opposite - being so fidgety or restless that you have been moving around a lot more than usual: Not at all 9. Thoughts that you would be better off , or of hurting yourself in some way: Not at all How difficult have these problems made it for you to do your work, take care of things at home, or get along with other people?: Somewhat difficult Total Score: 7 Knowledge Questionaire (BCKQ) Information Information: [facility] COPD Knowledge Questionnaire (BCKQ) This questionnaire is designed to find out what you know about your lung problem. It should be completed without help form anyone else. This usually takes between 10 and 20 minutes. Your answers will help us to find out what information you need to help you to understand and manage your lung condition. Frank the [place] which you think is the correct answer. Self-Efficacy 6-Item Scale Discharge Assessment: We would like to know how confident you are in doing certain activities. Please select your confidence level for: Fatigue Select Number: 8 Physical Discomfort or Pain Select Number: 8 Emotional Distress Select Number: 8 Other Symptoms or Health Problems Select Number: 8 Different Tasks and Activities Select Number: 8 Medication Select Number: 10 Total Score:: 8 Nutrition Survey Nutrition Survey Instructions Scoring Instructions
[2024-08-26 08:33] VITALS: BP 128/80; BP 160/90; O2SAT 90; BMI 30.2
== END 2024-09-15 23:59 ==
LOC: PR 13:00
PROVIDERS: PCP Internal Medicine; Referring Provider Internal Medicine Critical Care Medicine; Visit Provider Internal Medicine Critical Care Medicine
DX: J44.9 Chronic obstructive pulmonary disease, unspecified (principal)
CPT/HCPCS: 97150; 94626

== ENCOUNTER 2024-09-17 08:17 | Outpatient (RCR) | payer MEDICAID, SELFPAY ==
[2024-08-26 08:33] VITALS: BMI 30.2
[2024-09-16 00:18] VITALS: BP 128/80; BP 160/90; BMI 30.2
--- NOTE | 2024-09-21 07:22 | PR.ITP_ITS ---
Exercise - Initial Assessment Visit Session Number:: 30 (Pt has 6 session remaining. Pt had been inconsistent in attending rehab. Will encourage pt.) Physician Prescribed Exercise Modalities: Treadmill, SciFit Stepper and SciFit Lateral Welt Stitch Cleaner Current METSs:: 3.2 Resting Blood Pressure: 136/76 Maximum Exercise Blood Pressure: 144/80 Minimum SpO2 with exercise: 91 EKG Type: NSR to ST Nutrition/Wt Mgmt - Initial Visit Session Number:: 30 Weight Management Admit Height:: 5 ft 7 in Admit Weight:: 193 lb Admit BMI:: 30.2 Nutrition/Wt Mgmt - 30-Day Visit Date of Eval: 09/21/24 Session Number:: 30 Weight Management Height: 5 ft 7 in Weight:: 193 lb BMI: 30.2 Nutrition/Wt Mgmt - 60-Day Visit Date of Eval: 09/21/24 Session Number:: 30 Weight Management Height: 5 ft 7 in Weight:: 193 lb BMI: 30.2 Weight Goals Progress:: Not progressing (Pt has 6 session remaining. Pt had been inconsistent in attending rehab. Will encourage pt. Pt has attended rehab twice in the past month.) Nutrition/Wt Mgmt - 90-Day Visit Session Number:: 30 Weight Management Height: 5 ft 7 in Weight:: 193 lb BMI: 30.2 Weight Goals Progress:: Not progressing (Pt has 6 session remaining. Pt had been inconsistent in attending rehab. Will encourage pt. Pt has attended rehab twice in the past month.) Nutrition/Wt Mgmt - Final Visit Date of Eval: 09/21/24 Session Number:: 30 Weight Management Height: 5 ft 7 in Weight:: 193 lb BMI: 30.2 Psychosocial - Initial Assess Visit Session Number:: 30 Problems/Goals History of Emotional Disorders: Anxious and Depression Psychosocial Goals: 1. Patient is free from overwhelming symtoms of depression (or anxiety, 2. Identifies personal stressors & states the strategies for managing, 3. Identifies activities to decrease isolation and/or symptoms of, 4. Improved psychosocial coping skills., 5. Verbalizes coping strategies., 6. Adequate treatment of depression. and 7. Improved Q.O.L. Self-reported stressors: Family and Financial Psychosocial Test Tool Used:: PHQ-9 Questionnaire PHQ-9 Score: 7 Referral to Behavioral Health PS - Interventions: Yes: Attend Stress Management Classes Intervention/Plan: See List Interventions/Plan:: Assess stressors,coping strategies & signs of derpression on admission, Instruct/assist pt to develop coping & personal stress Mgt strategies, Refer to Behavioral Health if appropriate, Refer to Physician if appropriate, Instruct patient to recognize signs & symptoms of depression, Instruct patient to recog and Other additional plan/intervention Comments:: Pt states she is looking for a new counselor and declined assistance. Psychosocial - 30-Day Visit Date of Eval: 09/21/24 Session Number:: 30 Problems/Goals History of Emotional Disorders: Anxious and Depression Psychosocial Goals: 1. Patient is free from overwhelming symtoms of depression (or anxiety, 2. Identifies personal stressors & states the strategies for managing, 3. Identifies activities to decrease isolation and/or symptoms of, 4. Improved psychosocial coping skills., 5. Verbalizes coping strategies., 6. Adequate treatment of depression. and 7. Improved Q.O.L. Self-reported stressors: Family and Financial Psychosocial Test Tool Used:: PHQ-9 Questionnaire PHQ-9 Score: 7 Referral to Behavioral Health PS - Interventions: Yes: Attend Stress Management Classes Plan Interventions/Plan:: Assess stressors,coping strategies & signs of derpression on admission, Instruct/assist pt to develop coping & personal stress Mgt strategies, Refer to Behavioral Health if appropriate, Refer to Physician if appropriate, Instruct patient to recognize signs & symptoms of depression, Instruct patient to recog and Other additional plan/intervention Comments:: Pt states she is looking for a new counselor and declined assistance. Psychosocial - 60-Day Visit Date of Eval: 09/21/24 Session Number:: 30 Problems/Goals History of Emotional Disorders: Anxious and Depression Psychosocial Goals: 1. Patient is free from overwhelming symtoms of depression (or anxiety, 2. Identifies personal stressors & states the strategies for steph ging, 3. Identifies activities to decrease isolation and/or symptoms of, 4. Improved psychosocial coping skills., 5. Verbalizes coping strategies., 6. Adequate treatment of depression. and 7. Improved Q.O.L. Self-reported stressors: Family and Financial Psychosocial Test Tool Used:: PHQ-9 Questionnaire PHQ-9 Score: 7 Referral to Behavioral Health PS - Interventions: Yes: Attend Stress Management Classes Plan Interventions/Plan:: Assess stressors,coping strategies & signs of derpression on admission, Instruct/assist pt to develop coping & personal stress Mgt strategies, Refer to Behavioral Health if appropriate, Refer to Physician if appropriate, Instruct patient to recognize signs & symptoms of depression, Instruct patient to recog and Other additional plan/intervention Comments:: Pt states she is looking for a new counselor and declined assistance. Psychosocial - 90-Day Visit Session Number:: 30 (Pt has 6 session remaining. Pt had been inconsistent in attending rehab. Will encourage pt.) Problems/Goals History of Emotional Disorders: Anxious and Depression Psychosocial Goals: 1. Patient is free from overwhelming symtoms of depression (or anxiety, 2. Identifies personal stressors & states the strategies for stehp ging, 3. Identifies activities to decrease isolation and/or symptoms of, 4. Improved psychosocial coping skills., 5. Verbalizes coping strategies., 6. Adequate treatment of depression. and 7. Improved Q.O.L. Self-reported stressors: Family and Financial Psychosocial Test Tool Used:: PHQ-9 Questionnaire PHQ-9 Score: 7 Referral to Behavioral Health PS - Interventions: Yes: Attend Stress Management Classes Plan Interventions/Plan:: Assess stressors,coping strategies & signs of derpression on admission, Instruct/assist pt to develop coping & personal stress Mgt strategies, Refer to Behavioral Health if appropriate, Refer to Physician if appropriate, Instruct patient to recognize signs & symptoms of depression, Instruct patient to recog and Other additional plan/intervention Comments:: Pt states she is looking for a new counselor and declined assistance. Psychosocial - Final Assess Visit Date of Eval: 09/21/24 Session Number:: 30 (Pt has 6 session remaining. Pt had been inconsistent in attending rehab. Will encourage pt.) Problems/Goals History of Emotional Disorders: Anxious and Depression Psychosocial Goals: 1. Patient is free from overwhelming symtoms of depression (or anxiety, 2. Identifies personal stressors & states the strategies for managing, 3. Identifies activities to decrease isolation and/or symptoms of, 4. Improved psychosocial coping skills., 5. Verbalizes coping strategies., 6. Adequate treatment of depression. and 7. Improved Q.O.L. Self-reported stressors: Family and Financial Psychosocial Test Tool Used:: PHQ-9 Questionnaire PHQ-9 Score: 7 Referral to Behavioral Health PS - Interventions: Yes: Attend Stress Management Classes Plan Interventions/Plan:: Assess stressors,coping strategies & signs of derpression on admission, Instruct/assist pt to develop coping & personal stress Mgt strategies, Refer to Behavioral Health if appropriate, Refer to Physician if appropriate, Instruct patient to recognize signs & symptoms of depression, Instruct patient to recog and Other additional plan/intervention Comments:: Pt states she is looking for a new counselor and declined assistance. Oxygen & Oxygen Titration Init Visit Session Number:: 30 Initial Assessment SpO2:: 91 Oxygen & Oxygen Titration 30D Visit Date of Eval: 09/21/24 Session Number:: 30 (Pt has 6 session remaining. Pt had been inconsistent in attending rehab. Will encourage pt.) Reassessment SpO2:: 91 Oxygen & Oxygen Titration 60D Visit Date of Eval: 09/21/24 Session Number:: 30 (Pt has 6 session remaining. Pt had been inconsistent in attending rehab. Will encourage pt.) Reassessment SpO2:: 91 Oxygen & Oxygen Titration 90D Visit Date of Eval: 09/21/24 Session Number:: 30 (Pt has 6 session remaining. Pt had been inconsistent in attending rehab. Will encourage pt.) Reassessment SpO2:: 91 Oxygen & Oxygen Titration JOSE EDUARDO Visit Date of Eval: 09/21/24 Session Number:: 30 (Pt has 6 session remaining. Pt had been inconsistent in attending rehab. Will encourage pt.) Reassessment Oxygen & Oxygen Titration Final: None SpO2:: 91 Core Components - Initial Visit Session Number:: 30 (Pt has 6 session remaining. Pt had been inconsistent in attending rehab. Will encourage pt.) Hypertension Hypertension Diagnosis:: Hypertension ICD-10 I10 BP: 136/76 [place] [employer] Hypertension Guidelines Blood Pressure: 144/80 Outcomes/Goals: Able to verbalize/achieve optimal blood pressure <130/80 and Incorporates diet changes & exercise for blood pressure control by DC Comment: Pt has 6 session remaining. Pt had been inconsistent in attending rehab. Will encourage pt. Tobacco - Initial Assessment Tobacco Program Goals Stages of Change:: Maintenance Do you have family support?: Yes Tobacco Use: Non-smoker Diabetes Diabetes:: No Core Components - 30 DAYS Visit Date of Eval: 09/21/24 Session Number:: 30 (Pt has 6 session remaining. Pt had been inconsistent in attending rehab. Will encourage pt.) Hypertension Hypertension Diagnosis:: Hypertension ICD-10 I10 Resting Blood Pressure:: 136/76 [place] [employer] Hypertension Guidelines Peak Exercise Blood Pressure:: 144/80 Outcomes/Goals: Able to verbalize/achieve optimal blood pressure <130/80 and Incorporates diet changes & exercise for blood pressure control by DC Comment: Pt has 6 session remaining. Pt had been inconsistent in attending rehab. Will encourage pt. Tobacco - 30-Day Tobacco Program Goals Stages of Change:: Maintenance Learning Barriers: Participates in education Do you have family support?: Yes Tobacco Use: Non-smoker Exacerbation Mgmt & Airway Clearance Bronchial Hygiene Plan: Yes: Pt demonstrates correctly for effective cough, Yes: Pt demo correct for CPT, Yes: Pt demo correct for device, Yes: Pt demo correct for NS nasal spray, Yes: Pt demo correct for sputum management, Yes: Pt demo correct for improved hydration, Yes: Pt demo correct for hand hygiene, Yes: Pt demo correct for evalute sputum, Yes: Pt demo correct for verbalize when to call MD and Yes: Pt demo correct for cleaning of respiratory equipment Medication Medication reassessment: Yes: Pt demonstrates correct technique timing for MDI, Yes: Pt demonstrates correct technique timing for DPI, Yes: Pt demonstrates correct technique timing for NEB and Yes: Pt demonstrates correct technique timing for spacer Diabetes Diabetes:: No Core Components - 60 DAYS Visit Date of Eval: 09/21/24 Session Number:: 30 (Pt has 6 session remaining. Pt had been inconsistent in attending rehab. Will encourage pt.) Hypertension Hypertension Diagnosis:: Hypertension ICD-10 I10 Resting Blood Pressure:: 136/76 [place] [employer] Hypertension Guidelines Peak Exercise Blood Pressure:: 144/80 Outcomes/Goals: Able to verbalize/achieve optimal blood pressure <130/80 and Incorporates diet changes & exercise for blood pressure control by DC Comment: Pt has 6 session remaining. Pt had been inconsistent in attending rehab. Will encourage pt. Tobacco - 60-Day Tobacco Program Goals Stages of Change:: Maintenance Learning Barriers: Participates in education Do you have family support?: Yes Tobacco Use: Non-smoker Exacerbation Mgmt & Airway Clearance Bronchial Hygiene Plan: Yes: Pt demonstrates correctly for effective cough, Yes: Pt demo correct for CPT, Yes: Pt demo correct for device, Yes: Pt demo correct for NS nasal spray, Yes: Pt demo correct for sputum management, Yes: Pt demo correct for improved hydration, Yes: Pt demo correct for hand hygiene, Yes: Pt demo correct for evalute sputum, Yes: Pt demo correct for verbalize when to call MD and Yes: Pt demo correct for cleaning of respiratory equipment Medication Medication reassessment: Yes: Pt demonstrates correct technique timing for MDI, Yes: Pt demonstrates correct technique timing for DPI, Yes: Pt demonstrates correct technique timing for NEB and Yes: Pt demonstrates correct technique timing for spacer Diabetes Diabetes:: No Core Components - 90 DAYS Visit Session Number:: 30 (Pt has 6 session remaining. Pt had been inconsistent in attending rehab. Will encourage pt.) Hypertension Hypertension Diagnosis:: Hypertension ICD-10 I10 Resting Blood Pressure:: 136/76 [place] [employer] Hypertension Guidelines Peak Exercise Blood Pressure:: 144/80 Outcomes/Goals: Able to verbalize/achieve optimal blood pressure <130/80 and Incorporates diet changes & exercise for blood pressure control by DC Comment: Pt has 6 session remaining. Pt had been inconsistent in attending rehab. Will encourage pt. Tobacco - 90-Day Tobacco Program Goals Stages of Change:: Maintenance Learning Barriers: Participates in education Do you have family support?: Yes Tobacco Use: Non-smoker Exacerbation Mgmt & Airway Clearance Bronchial Hygiene Plan: Yes: Pt demonstrates correctly for effective cough, Yes: Pt demo correct for CPT, Yes: Pt demo correct for device, Yes: Pt demo correct for NS nasal spray, Yes: Pt demo correct for sputum management, Yes: Pt demo correct for improved hydration, Yes: Pt demo correct for hand hygiene, Yes: Pt demo correct for evalute sputum, Yes: Pt demo correct for verbalize when to call MD and Yes: Pt demo correct for cleaning of respiratory equipment Medication Medication reassessment: Yes: Pt demonstrates correct technique timing for MDI, Yes: Pt demonstrates correct technique timing for DPI, Yes: Pt demonstrates correct technique timing for NEB and Yes: Pt demonstrates correct technique timing for spacer Diabetes Diabetes:: No Core Components - Final Visit Date of Eval: 09/21/24 Session Number:: 30 (Pt has 6 session remaining. Pt had been inconsistent in attending rehab. Will encourage pt.) Hypertension Hypertension Diagnosis:: Hypertension ICD-10 I10 Resting Blood Pressure:: 136/76 [place] [employer] Hypertension Guidelines Peak Exercise Blood Pressure:: 144/80 Outcomes/Goals: Able to verbalize/achieve optimal blood pressure <130/80 and Incorporates diet changes & exercise for blood pressure control by DC Comment: Pt has 6 session remaining. Pt had been inconsistent in attending rehab. Will encourage pt. Tobacco - Final Tobacco Program Goals Stages of Change:: Maintenance Learning Barriers: Participates in education Do you have family support?: Yes Tobacco Use: Non-smoker Exacerbation Mgmt & Airway Clearance Final Assessment: Demonstrates knowledge of O2 Rx at rest and Demonstrates knowledge of O2 Rx with exercise Bronchial Hygiene Plan: Yes: Pt demonstrates correctly for effective cough, Yes: Pt demo correct for CPT, Yes: Pt demo correct for device, Yes: Pt demo correct f or NS nasal spray, Yes: Pt demo correct for sputum management, Yes: Pt demo correct for improved hydration, Yes: Pt demo correct for hand hygiene, Yes: Pt demo correct for evalute sputum, Yes: Pt demo correct for verbalize when to call MD and Yes: Pt demo correct for cleaning of respiratory equipment Medication Medication list reviewed:: Yes Taking medications 100% of the time:: Met Medication reassessment: Yes: Pt demonstrates correct technique timing for MDI, Yes: Pt demonstrates correct technique timing for DPI, Yes: Pt demonstrates correct technique timing for NEB and Yes: Pt demonstrates correct technique timing for spacer Diabetes Diabetes:: No Patient Health Questionnaire PHQ-9 Screening Discharge Assessment: 1. Little interest or pleasure in doing things: Not at all 2. Feeling down, depressed, or hopeless: Several days 3. Trouble falling or staying asleep, or sleeping too much: Several days 4. Feeling tired or having little energy: Several days 5. Poor appetite or overeating: Several days 6. Feeling bad about yourself -- or that you are a failure or have let yourself or your family down: Not at all 7. Trouble concentrating on things, such as reading the newspaper or watching television: Nearly every day 8. Moving or speaking so slowly that other people could have noticed. Or the opposite - being so fidgety or restless that you have been moving around a lot more than usual: Not at all 9. Thoughts that you would be better off , or of hurting yourself in some way: Not at all How difficult have these problems made it for you to do your work, take care of things at home, or get along with other people?: Somewhat difficult Total Score: 7 Knowledge Questionaire (BCKQ) Information Information: [place] COPD Knowledge Questionnaire (BCKQ) This questionnaire is designed to find out what you know about your lung problem. It should be completed without help form anyone else. This usually takes between 10 and 20 minutes. Your answers will help us to find out what information you need to help you to understand and manage your lung condition. Frank the kaw which you think is the correct answer. Self-Efficacy 6-Item Scale Discharge Assessment: We would like to know how confident you are in doing certain activities. Please select your confidence level for: Fatigue Select Number: 8 Physical Discomfort or Pain Select Number: 8 Emotional Distress Select Number: 8 Other Symptoms or Health Problems Select Number: 8 Different Tasks and Activities Select Number: 8 Medication Select Number: 10 Total Score:: 8 Nutrition Survey Nutrition Survey Instructions Scoring Instructions
[2024-09-21 07:33] VITALS: BP 136/76; BP 144/80; O2SAT 91; BMI 30.2
== END 2024-10-16 23:59 ==
LOC: PR 08:17
PROVIDERS: PCP Internal Medicine; Referring Provider Internal Medicine Critical Care Medicine; Visit Provider Internal Medicine Critical Care Medicine
DX: J44.9 Chronic obstructive pulmonary disease, unspecified (principal)
CPT/HCPCS: 97150; 94626

== ENCOUNTER → 2025-01-12 | Outpatient (CLI) | payer MEDICAID, SELFPAY ==
[2024-07-27 07:44] VITALS: BMI 30.2
[2024-09-21 07:33] VITALS: BMI 30.2
--- NOTE | 2025-01-12 16:04 | CT_ITS ---
PROCEDURE: CHEST WITHOUT CONTRAST 01/12/2025 REASON FOR EXAM: LUNG NODULES 4-6 MM IN [facility] QUIT 2022 TECHNIQUE: Chest CT without contrast. Coronal and Sagittal reconstruction series were provided. One or more dose reduction techniques were used (e.g., Automated exposure control, adjustment of the mA and/or kV according to patient size, use of iterative reconstruction technique RADIATION DOSE SUMMARY: CTDlvol: 11.23 mGy DLP: 412.39 mGycm COMPARISON: Prior study dated June 11, 2024. FINDINGS: Hardware: None Lymph nodes: No significant lymph nodes are seen. Heart and Vasculature: The heart is nonenlarged. Calcification of the aortic arch. Coronary Artery Calcifications: Present Lungs and Airways: The previously seen left lower lobe infiltrate as cleared. Since prior study, there are new lung nodules. New irregular nodule in the medial apical segment of the left upper lobe measuring 7 mm. Stable tiny nodules in the left upper lobe peripherally. New irregular nodule in the anterior aspect of the left upper lobe as seen on axial image number 31 measuring 6 mm. There is a new 5 mm nodule in the anterior medial aspect of the right upper lobe as seen on axial image number 48 new spiculated nodule in the anterior aspect of the right upper lobe as seen on axial image number 61 measuring 4.7 mm. Mild emphysematous changes. Pleura: No pleural effusion. Upper Abdomen: Unremarkable Bones: Degenerative changes of the thoracic spine. CT/Chest without Contrast IMPRESSION: Coronary artery calcification (CAC) is is present New nodules as compared to prior study. Correlation with a PET scan fatmata berg Reading Location: [facility]
== END | disposition home or self-care (01) ==
LOC: CT 16:02
PROVIDERS: PCP Internal Medicine; Referring Provider Nurse Practitioner Acute Care; Visit Provider Nurse Practitioner Acute Care
DX: R91.8 Other nonspecific abnormal finding of lung field (principal)
CPT/HCPCS: 71250

== ENCOUNTER → 2025-02-14 | Outpatient (CLI) | payer MEDICAID, SELFPAY ==
[2024-09-21 07:33] VITALS: BMI 30.2
[2025-02-14 17:51] LABS: Hematocrit 43.4 % (37-47); Hemoglobin 14.0 g/dL (12.0-15.0); Immature Granulocytes Count 0.040 X10^3/uL (0.0-0.0); Mean Corp Hgb Conc 32.3 g/dL (32-36); Mean Corpuscular Volume 88.6 fL (81-99); Mean Platelet Vol. 10.8 fl (6.2-12.0); NRBC Flagged by Analyzer 0 % (0-5); Platelet Count 239 K/mm3 (150-450); RBC Distribution Width CV 13.0 % (11.6-14.6); RBC Distribution Width SD 42.0 fl (35.1-43.9); Red Blood Count 4.90 M/mm3 (4.2-5.4); White Blood Count 8.9 K/mm3 (4.4-11.0)
[2025-02-14 18:22] LABS: AST(SGOT) 21 U/L (<=31); Alanine Aminotransfer ALT/SGPT 22 U/L (<=34); Albumin, Serum 4.0 g/dL (3.5-5.0); Alkaline Phosphatase 102 U/L (35-104); Anion Gap 11 (5-15); BUN 21 mg/dL (4-19); BUN/Creat Ratio 25.1 RATIO (10-20); Calcium,Total 9.7 mg/dL (7.6-11.0); Carbon Dioxide 22.8 mmol/L (21.0-32.0); Chloride 106 mmol/L (98-108); Cholesterol 167 mg/dL (<=200); Globulin 2.3 g/dL (2.2-4.2); Glucose 96 mg/dL (70-99); Low Density Lipoprotein Calc. 78 mg/dL; Potassium 3.9 mmol/L (3.3-5.1); Triglycerides 55 mg/dL; Very Low Density Lipoprotein 11 mg/dL (5-40); cholesterol:hdl ratio screen 2.13
== END | disposition home or self-care (01) ==
LOC: MTLAB 14:30
PROVIDERS: PCP Internal Medicine; Referring Provider Internal Medicine; Visit Provider Internal Medicine
DX: I10 Essential (primary) hypertension (principal)
CPT/HCPCS: 36415; 80053; 80061; 85025

== ENCOUNTER → 2025-04-12 | Outpatient (CLI) | payer MEDICAID, SELFPAY ==
[2024-09-21 07:33] VITALS: BMI 30.2
--- NOTE | 2025-04-12 15:05 | CT_ITS ---
PROCEDURE: CHEST WITHOUT CONTRAST 04/12/2025 REASON FOR EXAM: LUNG NODULES TECHNIQUE: Chest CT without contrast. Coronal and Sagittal reconstruction series were provided. One or more dose reduction techniques were used (e.g., Automated exposure control, adjustment of the mA and/or kV according to patient size, use of iterative reconstruction technique RADIATION DOSE SUMMARY: CTDlvol: 9.38 mGy DLP: 332.87 mGycm COMPARISON: 01/12/2025 FINDINGS: LUNGS: The previously identified pulmonary nodules demonstrate interval stability or regression, with several no longer visualized. Multiple new small right-sided pulmonary nodules are present, the largest measuring approximately 4.6 mm. Moderate diffuse centrilobular emphysema with a more advanced degree of destruction in the left lower lobe. Scattered linear opacities in both lungs likely represent areas of chronic scarring or mild subsegmental atelectasis. Retained secretions in the left mainstem bronchus. PLEURAL SPACES: No pleural effusion. No pneumothorax. HEART: No cardiomegaly. No significant pericardial effusion. Coronary artery calcification. MEDIASTINUM/HILUM: No significant lymphadenopathy. AORTA: No aneurysm. MILD CALCIFIED ATHEROSCLEROSIS. PULMONARY VESSELS: Enlarged main pulmonary artery, suggesting pulmonary hypertension. ESOPHAGUS: Unremarkable. CHEST WALL: The chest wall is unremarkable. BONES: No acute osseous abnormality. UPPER ABDOMEN: The upper abdominal solid organs are unremarkable. CT/Chest without Contrast IMPRESSION: 1. Interval stability, reduction or resolution of previously seen pulmonary no dules, however several new right lung nodules are now present measuring up to 4.6 mm. 2. Moderate centrilobular emphysema with severe involvement in the left lower lobe. 3. Coronary artery calcification (CAC) is present. LUNG-RADS CATEGORY: 3 (probably benign, 1-2% chance of malignancy) RECOMMENDED FOLLOW-UP: Short-term follow-up LD CT in 6 months. Reading Location: [id number]
== END | disposition home or self-care (01) ==
LOC: CT 14:53
PROVIDERS: PCP Internal Medicine; Referring Provider Internal Medicine Critical Care Medicine; Visit Provider Internal Medicine Critical Care Medicine
DX: R91.8 Other nonspecific abnormal finding of lung field (principal)
CPT/HCPCS: 71250

== ENCOUNTER 2025-04-24 15:37 | Emergency (ER) | payer MEDICAID, SELFPAY ==
[2024-09-21 07:33] VITALS: BMI 30.2
[2025-04-24 15:38] VITALS: BP 143/93; PULSE 108; RESP 20; TEMP 37.7; O2SAT 93; BMI 28.1
--- NOTE | 2025-04-24 15:47 | RAD_ITS ---
PROCEDURE: CHEST PA AND LATERAL 04/24/2025 REASON FOR EXAM: COUGH TECHNIQUE: Procedure Code: RADCXR Modality: DX Procedure: CHEST PA AND LATERAL COMPARISON: 10/28/2023 FINDINGS: Right lower lobe opacity not excluded. Bibasilar subsegmental atelectasis. No pleural effusion or pneumothorax. Cardiac silhouette is within normal limits. No acute fractures. RAD/Chest PA and Lateral IMPRESSION: Right lower lobe opacity not excluded. Bibasilar subsegmental atelectasis. Reading Location: [id number]
--- NOTE | 2025-04-24 15:48 | EKG12_ITS ---
Test Reason : SOB Blood Pressure : */* mmHG Vent. Rate : 99 BPM Atrial Rate : 99 BPM P-R Int : 146 ms QRS Dur : 84 ms QT Int : 346 ms P-R-T Axes : 62 67 88 degrees QTcB Int : 444 ms Normal sinus rhythm Nonspecific ST and T wave abnormality Abnormal ECG Confirmed by Andrés Sutherland ([id number]), scientific editor RALF IYER ([id number]) on 04/26/2025 8:30:55 AM Referred By: Confirmed By: Andrés Sutherland
--- NOTE | 2025-04-24 15:53 | ED.VIS.DYS ---
HPI History of Present Illness Chief Complaint: Shortness of Breath Narrative Narrative: Chief complaint and HPI: 60-year-old female with past medical history of COPD, HTN, CKD presents for evaluation of cold-like symptoms. Onset of symptoms yesterday. Patient endorses cough, shortness of breath, nausea/vomiting, body aches, and generalized weakness. She denies any sick contacts that she knows of. She denies any chest pain, abdominal pain, diarrhea. Review of systems: See HPI Medications: As listed on the chart Allergies: As listed on the chart PFSH: Per chart Vital signs: As listed on the chart. Reviewed. Physical exam: Gen: A&O x3, NAD Head: Normocephalic, atraumatic Eyes: No sclera icterus, conjunctiva clear ENT: Moist mucous membranes, + congestion Neck: Trachea midline, Full ROM, No meningismus CV: RRR, no murmurs Resp: Lungs CTA BL, with few expiratory scattered wheezing. + Cough GI: Abd soft, non-distended, non-tender, no r/r/g Musc: Full ROM, no deformity Skin: Warm, dry, no rash Psych: Cooperative, appropriate mood and affect [facility] Medical History Ulcer of right lower extremity with fat layer exposed Cellulitis Blistering eruption Anxiety and depression Dermatitis Mitral valve insufficiency RLQ abdominal pain UTI (urinary tract infection) History of COVID-19 Dyspnea on exertion Wound of right foot Right groin hernia Cellulitis of right foot Cellulitis of right ankle Blood glucose elevated Tobacco abuse, in remission COPD (chronic obstructive pulmonary disease) Shortness of breath Palpitations Tobacco abuse Hypertension Panic attack Grief counseling Grief reaction Grief at loss of child Back problem Seasonal allergies [place] Home Medications ?Medication ?Instructions ?Recorded ?Last Taken ?Type blood pressure monitor #1 ea 10/09/21 Unknown Rx Disability Placard #1 ea 03/09/24 Unknown Rx amlodipine 5 mg tablet 5 mg PO DAILY #90 tabs 09/02/24 04/23/25 Rx bupropion HCl 150 mg 24 hr tablet, 150 mg PO QAM #90 tabs 09/02/24 04/23/25 Rx extended release buspirone 5 mg tablet 5 mg PO BID #180 TABLETS 09/02/24 04/23/25 Rx umeclidinium 62.5 mcg-vilanterol 1 ea inhalation QDAY #60 ea 09/07/24 04/23/25 Rx 25 mcg/actuation powdr for inhalation (Anoro Ellipta) fluticasone furoate 200 1 inh inhalation QDAY #30 ea 10/18/24 04/23/25 Rx mcg/actuation blister powder for inhalation (Arnuity Ellipta) nebulizer and compressor #1 ea 12/27/24 Unknown Rx hydrocolloid dressing 6 X 6 #5 ea 12/28/24 Unknown Rx (Aquacel Extra) Allergy/AdvReac Type Severity Reaction Status Date / Time latex Allergy Rash Verified 04/24/25 15:38 Family History Mother CVA (cerebral vascular accident) Surgical History H/O: hysterectomy Social History Smoking Status: Former smoker quit date: 07/25/22 alcohol intake: never substance use type: does not use what type of physical activity do you participate in: walking EXAM Physical Exam Const Vital Signs: 04/24/25 15:38 04/24/25 15:58 04/24/25 16:03 Temperature 99.8 F H Temperature Source Oral Pulse Rate 108 H 108 H Respiratory Rate 20 H 20 H Respiratory Effort Normal Respiratory Depth Shallow Respiratory Pattern Normal Blood Pressure 143/93 H Blood Pressure Mean 109 Pulse Ox 93 Oxygen Delivery Method Room Air Room Air 04/24/25 16:06 04/24/25 17:00 Temperature 99.8 F H 99.1 F Temperature Source Temporal Temporal Pulse Rate 100 97 Respiratory Rate 9 L 13 Respiratory Effort Respiratory Depth Respiratory Pattern Blood Pressure 125/83 H 128/84 H Blood Pressure Mean 97 98 Pulse Ox 92 99 Oxygen Delivery Method Room Air Room Air MDM MDM MDM Narrative Medical decision making narrative: 60-year-old female with past medical history of COPD, HTN, CKD presents for evaluation of cold-like symptoms. Onset of symptoms yesterday. Patient endorses cough, shortness of breath, nausea/vomiting, body aches, and generalized weakness. Differential diagnosis includes but is not limited to COVID-19 infection, influenza, RSV, other viral illness, pneumonia, electrolyte abnormality, dehydration, COPD exacerbation. NS bolus, Zofran, Tylenol ordered for symptoms. Albuterol and DuoNeb ordered. Laboratory workup ordered including chest x-ray and viral testing. CBC shows mild leukocytosis of 13.6. No anemia. BMP unremarkable. COVID, flu, RSV negative. On reevaluation, patient's wheezing has improved. I suspect she has a mild COPD exacerbation secondary to viral illness however given her small leukocytosis and radiology not being able to rule out a right lower lobe opacity, will treat for possible pneumonia. Levaquin. First dose of prednisone and Levaquin given here. Will send her home with Zofran as needed for nausea and vomiting. Follow-up with primary care physician. Return precautions explained. She confirmed understand the plan. Patient stable to discharge home. EKG: Interpreted by me/EM physician: EKG shows normal sinus rhythm with nonspecific ST changes. Heart rate 99. Diagnostic: Interpreted by me/EM physician: Patient has chronic lung changes that are seen similar to previous chest x-ray. No obvious consolidation, effusion, cardiomegaly, pneumothorax. Radiology in agreement although they state they cannot rule out a right lower lobe opacity. Impression: 1. COPD exacerbation 2. Viral illness versus early pneumonia Lab Data Labs: Laboratory Results - last 24 hr 04/24/25 15:58 WBC 13.6 H RBC 5.13 Hgb 14.8 Hct 45.0 MCV 87.7 MCH 28.8 MCHC 32.9 RDW Std Deviation 41.9 RDW Coeff of Leobardo 13.0 Plt Count 222 MPV 10.1 Immature Gran % (Auto) 0.400 Neut % (Auto) 88.1 H Lymph % (Auto) 4.5 L [place] % (Auto) 6.3 Eos % (Auto) 0.2 Baso % (Auto) 0.5 Absolute Neuts (auto) 12.0 H Absolute Lymphs (auto) 0.62 L Nucleated RBC % 0 Sodium 134 Potassium 3.9 Chloride 99 Carbon Dioxide 21.0 Anion Gap 14 BUN 12 Creatinine 0.75 Estim Creat Clear Calc 88.76 Est GFR (MDRD) Non-Af 92 BUN/Creatinine Ratio 16.2 Glucose 123 H Calcium 9.4 Radiography Diagnostic Testing: Clinical Impression(s) from Imaging Studies Chest X-Ray 04/24/25 15:47 IMPRESSION: Right lower lobe opacity not excluded. Bibasilar subsegmental atelectasis. Reading Location: [facility] Discharge Plan Triage Chief Complaint: Shortness of Breath ED Provider: Medardo Schroeder Dx/Rx/DC Orders Prescriptions: No Action (DME) blood pressure monitor Kit See Rx Instructions .MEDSUPPLY Qty: 1 0RF Rx Instructions: Check blood pressure daily for hypertension I10 (DME) Disability Placard See Rx Instructions .ROUTE .MEDSUPPLY Qty: 1 0RF Rx Instructions: expires 03/09/2029 bupropion HCl 150 mg tablet extended release 24 hr 150 mg PO QAM Qty: 90 1RF amlodipine 5 mg tablet 5 mg PO DAILY Qty: 90 1RF Rx Instructions: 5 mg orally daily; buspirone 5 mg tablet 5 mg PO BID Qty: 180 1RF Anoro Ellipta 62.5-25 mcg/actuation blister with device 1 ea inhalation QDAY Qty: 60 11RF Arnuity Ellipta 200 mcg/actuation blister with device 1 inh inhalation QDAY Qty: 30 11RF Rx Instructions: administer at approximately the same time(s) each day (DME) nebulizer and compressor Device See Rx Instructions .Route Qty: 1 0RF Rx Instructions: As directed (DME) hydrocolloid dressing [Aquacel Extra] 6 X 6 bandage See Rx Instructions .Route Qty: 5 0RF Rx Instructions: As directed Primary Care Provider: Rowdy Jiang Referrals: Rowdy Jiang MD [Primary Care Provider, Internal Medicine] Print Language: Luxembour[place]
[2025-04-24 15:58] VITALS: PULSE 108; RESP 20
[2025-04-24] MEDS: Albuterol 2.5 MG/3 ML VIAL.NEB. INHALATION (15:58)
[2025-04-24] MEDS: 0.9% Normal Saline (1000mL) 1,000 ML 999 ML IV (15:59)
[2025-04-24 16:03] VITALS: O2SAT 93
[2025-04-24 16:06] VITALS: BP 125/83; PULSE 100; RESP 9; TEMP 37.7; O2SAT 92
[2025-04-24 16:10] LABS: Hematocrit 45.0 % (37-47); Hemoglobin 14.8 g/dL (12.0-15.0); Immature Granulocytes Count 0.060 X10^3/uL (0.0-0.0); Mean Corp Hgb Conc 32.9 g/dL (32-36); Mean Corpuscular Volume 87.7 fL (81-99); Mean Platelet Vol. 10.1 fl (6.2-12.0); NRBC Flagged by Analyzer 0 % (0-5); Platelet Count 222 K/mm3 (150-450); RBC Distribution Width CV 13.0 % (11.6-14.6); RBC Distribution Width SD 41.9 fl (35.1-43.9); Red Blood Count 5.13 M/mm3 (4.2-5.4); White Blood Count 13.6 K/mm3 (4.4-11.0)
--- OUTSIDE RECORDS SUMMARY | 2025-04-24 16:18 | XMS RPT_ITS | CCD ---
Author Organization 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 Rowdy Jiang Primary Care Provider [phone] Dr. Rowdy Jiang Attending Provider [phone] Dr. Rowdy Jiang Referring Provider [phone] Dr. Rowdy Jiang Other Provider [phone] Dr. Ortega Montez Attending Provider Dr. Rowdy Jiang Primary Care Provider [phone] Dr. Rowdy Jiang Referring Provider [phone] USMAN Penaloza Attending Provider Dr. Rowdy Jiang Attending Provider [phone] Dr. Rowdy Jiang Primary Care Provider [phone] Dr. Rowdy Jiang Referring Provider [phone] USMAN Villatoro Attending Provider [phone] Dr. Rowdy Jiang Primary Care Provider [phone] Dr. Rowdy Jiang Attending Provider [phone] Dr. Rowdy Jiang Referring Provider [phone] Dr. Yuly Pandey Attending Provider Unavailable Primary Care Provider UnavailJUVENAL Lutz Attending Unavailable Apolinar RODGERS, Dr. [place] Primary Care Provider Dr. Ortega Montez DO Attending Provider [phone] Ortega Montez DO Referring Provider [phone] Edelmira STRIKE OPERATIONS OFFICER-CJamee Attending Provider Edelmira FOSTER-C, Jamee Referring Provider Dr. Rowdy Jiang MD Primary Care Provider Dr. Ortega Montez DO Attending Provider Dr. Ortega Montez DO Referring Provider [phone] Apolinar RODGERS, Dr. [place] Referring Provider [phone] Edelmira STRIKE OPERATIONS OFFICER-CJamee Attending Provider Theodore Vega Attending Provider REFERRING, PHY Attending Unavailable SUNDAR RODGERS, DR ASHLEE Saravia Primary Care Unavailable Apolinar RODGERS, Dr. [place] Primary Care Provider Dr. Rowdy Jiang MD Referring Provider [phone] Dr. Ortega Montez DO Attending Provider Dr. Ortega Montez DO Referring Provider [phone] Rowdy Jiang MD Attending Provider [phone] Apolinar RODGERS, Dr. [place] Primary Care Provider Dr. Rowdy Jiang MD Referring Provider [phone] Edelmira FOSTER-CJamee Attending Provider Edelmira STRIKE OPERATIONS OFFICER-C, Jamee Referring Provider Oleghe, Efewongbe Referring Unavailable Oleghe, Efewongbe Primary Care Unavailable Theodore Vega Attending Unavailable Oleghe, Efewongbe Referring Unavailable Hickey STRIKE OPERATIONS OFFICER, Jamee Attending Unavailable Oleghe, Efewongbe Primary Care Unavailable Oleghe, Efewongbe Primary Care Unavailable Oleghe, Efewongbe Referring Unavailable Oleghe, Efewongbe Attending Unavailable Oleghe, Efewongbe Primary Care Unavailable Oleghe, Efewongbe Referring Unavailable Oleghe, Efewongbe Attending Unavailable Hickey STRIKE OPERATIONS OFFICER, Jamee Attending Unavailable Hickey STRIKE OPERATIONS OFFICER, Jamee Referring Unavailable Oleghe, Efewongbe Primary Care Unavailable Oleghe, Efewongbe Primary Care Unavailable Hickey STRIKE OPERATIONS OFFICER, Jamee Referring Unavailable Hickey STRIKE OPERATIONS OFFICER, Jamee Attending Unavailable Brown, Ortega Attending Unavailable Brown, Ortega Referring Unavailable Oleghe, Efewongbe Primary Care Unavailable Brown, Ortega Attending Unavailable Brown, Ortega Referring Unavailable Oleghe, Efewongbe Primary Care Unavailable Brown, Ortega Attending Unavailable Brown, Ortega Referring Unavailable Oleghe, Efewongbe Primary Care Unavailable Brown, Ortega Attending Unavailable Brown, Ortega Referring Unavailable Oleghe, Efewongbe Primary Care Unavailable Brown, Ortega Attending Unavailable Brown, Ortega Referring Unavailable Oleghe, Efewongbe Primary Care Unavailable Brown, Ortega Attending Unavailable Brown, Ortega Referring Unavailable Oleghe, Efewongbe Primary Care Unavailable Hickey STRIKE OPERATIONS OFFICER, Jamee Attending Unavailable Oleghe, Efewongbe Primary Care Unavailable Hickey STRIKE OPERATIONS OFFICER, Jamee Referring Unavailable Brown, Ortega Attending Unavailable Brown, Ortega Referring Unavailable Oleghe, Efewongbe Primary Care Unavailable Oleghe, Efewongbe Primary Care Unavailable Oleghe, Efewongbe Referring Unavailable Oleghe, Efewongbe Attending Unavailable Allergies Allergy Classification Reported Allergen(s) Allergy Type Date of Onset Reaction(s) Facility (20 sources) Latex; Translations: [LATEX] Propensity to adverse reactions (disorder) 3 [facility] Repository Medications Current Medications Medication Drug Class(es) Dates Sig (Normalized) Sig (Original) ascorbic acid 100 mg oral tablet (9 sources) Vitamin C take 1 tablet by mouth once daily Ascorbic Acid (vitamin C) 100 MG tablet Take 100 mg by mouth daily. 0 Active Blood Pressure Monitor (9 sources) Start: 10-09-2021 Blood Pressure Monitor Active 0 .MEDSUPPLY 1 October 08, 2021 11:00pm Check blood pressure daily for hypertension I10 Blood Pressure Monitor kit (4 sources) Start: 10-09-2021 Blood Pressure Monitor kit Active 0 .MEDSUPPLY 1 0 October 09, 2021 12:00am Essential (primary) hypertension Check blood pressure daily for hypertension I10 Start: 10-09-2021 Blood Pressure Monitor kit Active 0 .MEDSUPPLY 1 October 09, 2021 12:00am Check blood pressure daily for hypertension I10 Disability Placard (4 sources) Start: 03-09-2024 Disability Letty card Active 0 .ROUTE .MEDSUPPLY 1 0 March 09, 2024 12:00am Chronic obstructive pulmonary disease Chronic obstructive pulmonary disease, unspecified chronic respiratory distress J96.10 expires 03/09/2029 Start: 03-09-2024 Disability Letty card Active 0 .ROUTE .MEDSUPPLY 1 March 09, 2024 12:00am expires 03/09/2029 Fluticasone Furoate (6 sources) Corticosteroid Start: 10-18-2024 take 200 ug by inhalation once daily Fluticasone Furoate (Arnuity Ellipta) 200 mcg/actuation blister with device Active 1 NMA INHALATION daily 17 04October 18, 2024 9:29am administer at approximately the same time(s) each day Start: 10-15-2023 End: 10-18-2024 take 200 ug by inhalation once daily Fluticasone Furoate (Arnuity Ellipta) 200 mcg/actuation blister with device Discontinued 1 NMA INHALATION daily 17 04October 15, 2023 12:00am October 18, 2024 9:29am administer at approximately the same time(s) each day Start: 10-15-2023 take 200 ug by inhal ation once daily Fluticasone Furoate (Arnuity Ellipta) 200 mcg/actuation blister with device Active 1 NMA INHALATION daily October 15, 2023 12:00am administer at approximately the same time(s) each day Hydrocolloid Dressing (Aquacel Extra) 6 X 6 bandage (1 source) Start: 12-28-2024 Hydrocolloid D ressing (Aquacel Extra) 6 X 6 bandage Active 0 .Route 5 0 December 28, 2024 12:00am Ulcer of right lower extremity with fat layer exposed As directed mupirocin 0.02 mg/mg topical ointment (19 sources) RNA Synthetase Inhibitor Antibacterial Start: 09-25-2024 End: 12-23-2024 Mupirocin 2 % ointment Active 1 NMA TOPICAL TWICE A DAY 15 December 23, 2024 2:20pm Start: 09-25-2024 End: 09-25-2024 Mupirocin 2 % ointment Disco ntinued 1 NMA TOPICAL TWICE A DAY 15 September 25, 2024 12:00am September 25, 2024 4:08pm Start: 09-25-2024 End: 09-25-2024 Mupirocin 2 % ointment Disco ntinued 1 NMA TOPICAL TWICE A DAY September 25, 2024 12:00am September 25, 2024 4:08pm Start: 03-07-2023 End: 06-03-2023 Mupirocin 2 % ointment Disco ntinued 1 NMA TOPICAL TWICE A DAY 15 March 07, 2023 12:00am June 03, 2023 2:13am Start: 03-07-2023 End: 06-03-2023 Mupirocin 2 % ointment Disco ntinued 1 NMA TOPICAL TWICE A DAY March 07, 2023 12:00am June 03, 2023 2:13am Start: 03-07-2023 End: 06-03-2023 Mupirocin Discontinued 1 HOLDEN LIC TOPICAL TWICE A DAY March 06, 2023 11:00pm June 03, 2023 1:13am Nebulizer And Compressor (13 sources) Start: 06-03-2023 Nebulizer And Compressor Active 0 .Route 1 June 03, 2023 4:34pm As directed Start: 06-03-2023 End: 06-03-2023 Nebulizer And Compressor Dis continued 0 .Route 1 June 03, 2023 12:00am June 03, 2023 4:37pm As directed Start: 06-03-2023 Nebulizer And Compressor Active 0 .Route 1 June 03, 2023 12:00am As directed Nebulizer And Compressor dev ice (9 sources) Start: 12-27-2024 Nebulizer And Compressor device Active 0 .Route 1 0 December 27, 2024 4:33pm Chronic obstructive pulmonary disease Acute exacerbation of chronic obstructive pulmonary disease Chronic obstructive pulmonary disease, unspecified Chronic obstructive pulmonary disease with (acute) exacerbation As directed Start: 06-03-2023 End: 12-27-2024 Nebulizer And Compressor dev ice Discontinued 0 .Route 1 0 June 03, 2023 5:34pm December 27, 2024 4:33pm Chronic obstructive pulmonary disease Acute exacerbation of chronic obstructive pulmonary disease Chronic obstructive pulmonary disease, unspecified Chronic obstructive pulmonary disease with (acute) exacerbation As directed Start: 06-03-2023 Nebulizer And Compressor device Active 0 .Route 1 0 June 03, 2023 5:34pm Chronic obstructive pulmonary disease Acute exacerbation of chronic obstructive pulmonary disease Chronic obstructive pulmonary disease, unspecified Chronic obstructive pulmonary disease with (acute) exacerbation As directed Start: 06-03-2023 Nebulizer And Compressor device Active 0 .Route 1 June 03, 2023 5:34pm As directed Start: 06-03-2023 End: 06-03-2023 Nebulizer And Compressor dev ice Discontinued 0 .Route 1 0 June 03, 2023 1:00am June 03, 2023 5:37pm As directed Start: 06-03-2023 End: 06-03-2023 Nebulizer And Compressor dev ice Discontinued 0 .Route 1 June 03, 2023 1:00am June 03, 2023 5:37pm As directed 7 actuat umeclidinium 0.0625 mg/actuat / vilanterol 0.025 mg/actuat dry powder inhaler (12 sources) Anticholinergic, beta2-Adrenergic Agonist Start: 09-07-2024 Umeclidinium-Vilanterol (Anoro Ellipta) 62.5-25 mcg/actuation blister with device Active 1 NMA INHALATION daily 60 September 07, 2024 8:14am Start: 10-15-2023 End: 09-07-2024 Umeclidinium-Vilanterol (Ano ro Ellipta) 62.5-25 mcg/actuation blister with device Discontinued 1 NMA INHALATION daily 60 October 15, 2023 3:13pm September 07, 2024 8:14am Start: 10-15-2023 End: 09-07-2024 Umeclidinium-Vilanterol (Ano ro Ellipta) 62.5-25 mcg/actuation blister with device Discontinued 1 NMA INHALATION daily 60 October 15, 2023 3:13pm September 07, 2024 8:14am Start: 10-15-2023 Umeclidinium-V ilanterol (Anoro Ellipta) 62.5-25 mcg/actuation blister with device Active 1 NMA INHALATION daily 60 October 15, 2023 3:13pm Start: 10-15-2023 End: 10-15-2023 Umeclidinium-Vilanterol (Ano ro Ellipta) 62.5-25 mcg/actuation blister with device Discontinued 1 NMA INHALATION daily October 15, 2023 12:00am October 15, 2023 3:16pm Start: 09-16-2023 take 1 puff(s) by inhalation in the morning umeclidinium-vilanterol (Anoro Ellipta) 62.5-25 MCG/ACT aerosol powder Inhale 1 puff in the morning. 60 each 5 09/16/2023 Active Completed/Discontinued Medications Medication Drug Class(es) Dates Sig (Normalized) Sig (Original) [id number] 200 actuat albuterol 0.09 mg/actuat metered dose inhaler (20 sources) beta2-Adrenergic Agonist Start: 12-03-2023 End: 08-30-2024 Albuterol Sulfate (Ventolin Hfa) 90 mcg/actuation HFA aerosol inhaler Discontinued 2 NMA INHALATION EVERY 3-4 HOURS as needed December 26, 2023 10:33am August 30, 2024 9:16am Start: 10-15-2023 End: 12-03-2023 Albuterol Sulfate (Ventolin Hfa) 90 mcg/actuation HFA aerosol inhaler Discontinued INHALATION October 15, 2023 12:00am December 03, 2023 3:57pm Start: 06-30-2023 take 2 puff(s) by mo uth every six hours as needed Ventolin HFA 108 (90 Base) MCG/ACT inhaler INHALE TWO PUFFS BY MOUTH EVERY 6 HOURS NEEDED 0 06/30/2023 Active Start: 07-17-2022 End: 08-13-2023 Albuterol Sulfate (Proair Hf a) 90 mcg/actuation HFA aerosol inhaler Discontinued 2 NMA INHALATION EVERY 6 HOURS as needed for shortness of breath or wheezing 8.5 3 January 27, 2023 1:21pm August 13, 2023 8:44am Start: 07-17-2022 End: 01-27-2023 take 1 puff(s) by inhalation every six hours Albuterol Sulfate (Proair Hfa) 90 mcg/actuation HFA aerosol inhaler Discontinued 2 PUFF INHALATION EVERY 6 HOURS 8.5 November 25, 2022 3:01pm January 27, 2023 12:22pm albuterol 0.833 mg/ml / ipratropium bromide 0.167 mg/ml inhalation solution (20 sources) Anticholinergic, beta2-Adrenergic Agonist Start: 06-03-2023 End: 08-12-2024 take 1 mL by inhalation four times daily as needed for wheezing Ipratropium-Albuterol 0.5 mg-3 mg(2.5 mg base)/3 mL solution for nebulization Discontinued 3 mL INHALATION 4 TIMES DAILY NEEDED as needed for shortness of breath or wheezing 180 0 July 01, 2023 4:38pm November 04, 2023 11:48am Start: 06-03-2023 End: 07-01-2023 take 1 mL by inhalation four times daily as needed Ipratropium-Albuterol Active 3 ML INHALATION 4 TIMES DAILY NEEDED 180 July 01, 2023 3:38pm amLODIPine 5 mg oral tablet (20 sources) Dihydropyridine Calcium Channel Roxana Start: 07-17-2022 End: 09-02-2024 take 1 tablet by mouth once daily Amlodipine 5 mg tablet Discontinued 5 mg PO DAILY 7 7 1 June 27, 2023 6:18pm December 26, 2023 1:05pm 5 mg orally daily; amoxicillin 500 mg oral capsule (3 sources) Penicillin-class Antibacterial Start: 08-17-2024 End: 09-02-2024 take 1 capsule by mouth every eight hours Amoxicillin 500 mg capsule Discontinued 500 mg PO EVERY 8 HOURS August 17, 2024 12:00am September 02, 2024 2:32pm amoxicillin 875 mg / clavulanate 125 mg oral tablet (20 sources) Penicillin-class Antibacterial Start: 03-17-2024 End: 08-17-2024 Amoxicillin-Pot Clavulanate 875-125 mg tablet Discontinued 1 {tbl} PO TWICE A DAY March 17, 2024 12:00am August 17, 2024 2:30pm Start: 06-25-2023 End: 07-30-2023 Amoxicillin-Pot Clavulanate 875-125 mg tablet Discontinued 1 {tbl} PO Q12H 14 June 25, 2023 1:00am July 30, 2023 3:10pm Start: 06-25-2023 take 1 tablet by christ th every twelve hours Amoxicillin-Pot Clavulanate Active 1 TABLET PO Q12H June 25, 2023 12:00am Start: 02-10-2023 End: 03-07-2023 Amoxicillin-Pot Clavulanate 875-125 mg tablet Discontinued 1 {tbl} PO TWICE A DAY February 10, 2023 12:00am March 07, 2023 2:20pm Start: 02-10-2023 End: 03-07-2023 take 1 tablet by mouth twice daily Amoxicillin-Pot Clavulanate Discontinued 1 TABLET PO TWICE A DAY February 09, 2023 11:00pm March 07, 2023 1:20pm Budesonide-Formoterol [Budesonide-Formoterol Hfa 160 Mcg-4.5 Mcg/Actuation Aerosol Inhaler] (20 sources) Corticosteroid, beta2-Adrenergic Agonist Start: 06-02-2023 End: 06-23-2023 Budesonide-Formoterol [Budesonide-Formoterol Hfa 160 Mcg-4.5 Mcg/Actuation Aerosol Inhaler] (Budesonide-Formoterol Hfa 160 Mcg-4.5 Mcg/Actuation ) 160-4.5 mcg/actuation HFA aerosol inhaler Discontinued 1 NMA INHALATION Q12H June 02, 2023 1:00am June 23, 2023 2:12pm SOB Start: 06-02-2023 End: 06-23-2023 Budesonide-Formoterol [Budesonide-Formoterol Hfa 160 Mcg-4.5 Mcg/Actuation Aerosol Inhaler] (Budesonide-Formoterol Hfa 160 Mcg-4.5 Mcg/Actuation ) 160-4.5 mcg/actuation HFA aerosol inhaler Discontinued 1 NMA INHALATION Q1June 02, 2023 1:00am June 23, 2023 2:12pm Start: 06-02-2023 End: 06-23-2023 take 1 puff(s) by inhalation every twelve hours Budesonide-Formoterol [Budesonide-Formoterol Hfa 160 Mcg-4.5 Mcg/Actuation Aerosol Inhaler] (Budesonide-Formoterol Hfa 160 Mcg-4.5 Mcg/Actuation ) 160-4.5 mcg/actuation HFA aerosol inhaler Discontinued 1 PUFF INHALATION Q1June 02, 2023 12:00am June 23, 2023 1:12pm Start: 06-02-2023 take 1 puff(s) by in halation every twelve hours Budesonide-Formoterol [Budesonide-Formoterol Hfa 160 Mcg-4.5 Mcg/Actuation Aerosol Inhaler] (Budesonide-Formoterol Hfa 160 Mcg-4.5 Mcg/Actuation ) 160-4.5 mcg/actuation HFA aerosol inhaler Active 1 PUFF INHALATION Q1June 02, 2023 12:00am Start: 11-25-2022 End: 05-21-2023 Budesonide-Formoterol (Symbi boogie) 160-4.5 mcg/actuation HFA aerosol inhaler Discontinued 2 NMA INHALATION Q1H 10.2 2 November 25, 2022 4:01pm May 21, 2023 6:09pm Start: 11-25-2022 End: 05-21-2023 Budesonide-Formoterol (Symbi boogie) 160-4.5 mcg/actuation HFA aerosol inhaler Discontinued 2 NMA INHALATION Q12H 10.2 November 25, 2022 4:01pm May 21, 2023 6:09pm Start: 11-25-2022 End: 05-21-2023 take 1 puff(s) by inhalation every twelve hours Budesonide-Formoterol (Symbicort) 160-4.5 mcg/actuation HFA aerosol inhaler Discontinued 2 PUFF INHALATION Q12H 10.2 November 25, 2022 3:01pm May 21, 2023 5:09pm Start: 07-17-2022 End: 11-25-2022 Budesonide-Formoterol (Symbi boogie) 160-4.5 mcg/actuation HFA aerosol inhaler Discontinued 2 NMA INHALATION Q12H 10.2 2 July 17, 2022 1:00am November 25, 2022 4:01pm Start: 07-17-2022 End: 11-25-2022 Budesonide-Formoterol (Symbi boogie) 160-4.5 mcg/actuation HFA aerosol inhaler Discontinued 2 NMA INHALATION Q12H 10.2 July 17, 2022 1:00am November 25, 2022 4:01pm Start: 07-17-2022 End: 11-25-2022 take 1 puff(s) by inhalation every twelve hours Budesonide-Formoterol (Symbicort) 160-4.5 mcg/actuation HFA aerosol inhaler Discontinued 2 PUFF INHALATION Q12H 10.2 July 17, 2022 12:00am November 25, 2022 3:01pm Start: 07-17-2022 take 1 puff(s) by in halation every twelve hours Budesonide-Formoterol (Symbicort) 160-4.5 mcg/actuation HFA aerosol inhaler Active 2 PUFF INHALATION Q12H 10.2 July 17, 2022 12:00am Njkhcvgplr-Lmaejknn-Rfmerasw ol (20 sources) Corticosteroid, beta2-Adrenergic Agonist Start: 06-06-2023 End: 07-01-2023 Jokcrcqxvg-Fnbinmkl-Roounmrd ol (Breztri Aerosphere) 160-9-4.8 mcg/actuation HFA aerosol inhaler Discontinued 2 NMA INHALATION TWICE A DAY 10.7 1 June 06, 2023 1:00am July 01, 2023 4:38pm Start: 06-06-2023 End: 07-01-2023 Citupnfevh-Udlrxhwh-Lfwvndml ol (Breztri Aerosphere) 160-9-4.8 mcg/actuation HFA aerosol inhaler Discontinued 2 NMA INHALATION TWICE A DAY 10.7 June 06, 2023 1:00am July 01, 2023 4:38pm Start: 06-06-2023 End: 07-01-2023 Dhdmzvadfw-Wqnhnodq-Cbmmyjpt ol (Breztri Aerosphere) 160-9-4.8 mcg/actuation HFA aerosol inhaler Discontinued 2 INH INHALATION TWICE A DAY 10.7 June 06, 2023 12:00am July 01, 2023 3:38pm Start: 06-06-2023 Budesonide-Gly copyr-Formoterol (Breztri Aerosphere) 160-9-4.8 mcg/actuation HFA aerosol inhaler Active 2 INH INHALATION TWICE A DAY 10.7 June 06, 2023 12:00am Start: 05-21-2023 End: 06-02-2023 Wgqkznmyan-Kantsjny-Zkmzxmsa ol (Breztri Aerosphere) 160-9-4.8 mcg/actuation HFA aerosol inhaler Discontinued 2 NMA INHALATION every day in the morning and in the evening 10.7 1 May 21, 2023 1:00am June 03, 2023 12:39am Start: 05-21-2023 End: 06-02-2023 Eanmprmagw-Sdzzmvcy-Jlcyjpwa ol (Breztri Aerosphere) 160-9-4.8 mcg/actuation HFA aerosol inhaler Discontinued 2 NMA INHALATION every day in the morning and in the evening 10.7 May 21, 2023 1:00am June 03, 2023 12:39am Start: 05-21-2023 End: 06-02-2023 Hzfccwclpk-Xxcrxmck-Yarjbjyw ol (Breztri Aerosphere) 160-9-4.8 mcg/actuation HFA aerosol inhaler Discontinued 2 INH INHALATION every day in the morning and in the evening 10.7 May 21, 2023 12:00am June 02, 2023 11:39pm 24 hr buPROPion hydrochloride 150 mg extended release oral tablet (20 sources) Aminoketone Start: 06-19-2022 End: 09-02-2024 take 1 tablet by mouth once daily in the morning Bupropion Hcl 150 mg tablet extended release 24 hr Discontinued 150 mg PO EVERY MORNING 30 June 07, 2024 12:49pm September 02, 2024 2:50pm busPIRone hydrochloride 5 mg oral tablet (20 sources) Start: 07-08-2023 End: 09-02-2024 take 1 tablet by mouth twice daily Buspirone 5 mg tablet Discontinued 5 mg PO TWICE A DAY 180 0 February 03, 2024 12:41pm September 02, 2024 2:50pm cephalexin 500 mg oral tablet (5 sources) Cephalosporin Antibacterial Start: 12-23-2024 End: 12-30-2024 take 1 tablet by mouth three times daily Cephalexin 500 mg tablet Discontinued 500 mg PO THREE TIMES A DAY 21 7 0 December 23, 2024 4:57pm December 29, 2024 12:00am December 30, 2024 12:08am Start: 12-26-2023 End: 01-02-2024 take 1 tablet by mouth three times daily Cephalexin 500 mg tablet Discontinued 500 mg PO THREE TIMES A DAY 21 7 0 December 26, 2023 12:00am January 01, 2024 12:00am January 02, 2024 12:05am doxycycline monohydrate 100 mg oral tablet (5 sources) Tetracycline-class Drug Start: 12-23-2024 End: 12-23-2024 take 1 tablet by mouth twice daily Doxycycline Monohydrate 100 mg tablet Discontinued 100 mg PO TWICE A DAY 14 0 December 23, 2024 4:58pm December 23, 2024 4:58pm Start: 12-26-2023 End: 03-09-2024 take 1 tablet by mouth twice daily Doxycycline Monohydrate 100 mg tablet Discontinued 100 mg PO TWICE A DAY 14 0 December 26, 2023 12:00am March 09, 2024 2:41pm Dwdhzakkqqu-Iqlrbtogg-Deqczc (Trelegy Ellipta) 200-62.5-25 MCG/ACT aerosol powder (10 sources) Start: 09-04-2023 End: 09-16-2023 take 1 puff(s) by inhalation once daily Lezymlnrtwi-Rzlbqjsrk-Vrduqg (Trelegy Ellipta) 200-62.5-25 MCG/ACT aerosol powder Inhale 1 puff daily. 1 each 09/04/2023 09/16/2023 Discontinued (Cost of medication) Start: 09-04-2023 take 1 puff(s) by inhalation once daily Rwnundifslw-Fcpomqoeb-Ckxzpw (Trelegy Ellipta) 200-62.5-25 MCG/ACT aerosol powder Inhale 1 puff daily. 1 each 5 09/04/2023 Active Start: 08-28-2023 End: 09-03-2023 take 1 puff(s) by inhalation once daily Pgfqonnoqjb-Glsbgmgfp-Ylnxpb (Trelegy Ellipta) 200-62.5-25 MCG/ACT aerosol powder Inhale 1 puff daily. 1 each 08/28/2023 09/03/2023 Discontinued (Reorder) Start: 08-28-2023 take 1 puff(s) by inhalation once daily Eqzhnbzykbl-Kahbhlrug-Lmeblc (Trelegy Ellipta) 200-62.5-25 MCG/ACT aerosol powder Inhale 1 puff daily. 1 each 5 08/28/2023 Active Kvyflxlpwsi-Tbthcwdsz-Xlfiiw er (8 sources) Start: 07-01-2023 End: 10-15-2023 Mathddfefnw-Hiykstaci-Exmeue er (Trelegy Ellipta) 200-62.5-25 mcg blister with device Discontinued 1 NMA INHALATION DAILY 60 July 01, 2023 1:00am October 15, 2023 2:49pm Start: 07-01-2023 End: 10-15-2023 Voljfpslcbh-Wwynoanww-Kylanz er (Trelegy Ellipta) 200-62.5-25 mcg blister with device Discontinued 1 NMA INHALATION DAILY 60 July 01, 2023 1:00am October 15, 2023 2:49pm Start: 07-01-2023 Fluticasone-Um eclidin-Vilanter (Trelegy Ellipta) 200-62.5-25 mcg blister with device Active 1 INH INHALATION DAILY 60 July 01, 2023 12:00am 12 hr guaiFENesin 1200 mg extended release oral tablet (15 sources) Start: 06-25-2023 End: 11-10-2024 take 1 tablet by mouth every twelve hours, then take 1 tablet by mouth every twelve hours Guaifenesin (Mucinex) 1,200 mg tablet extended release 12hr Discontinued 1200 mg PO Q12H 180 October 15, 2023 3:16pm November 10, 2024 8:15am hydrOXYzine hydrochloride 25 mg oral tablet (20 sources) Antihistamine Start: 09-25-2021 End: 09-02-2024 take 1 tablet by mouth three times daily as needed for anxiety Hydroxyzine Hcl 25 mg tablet Discontinued 25 mg PO THREE TIMES A DAY as needed for anxiety 7 0 June 27, 2023 6:20pm September 02, 2024 2:50pm ibuprofen 800 mg oral tablet (13 sources) Nonsteroidal Anti-inflammatory Drug Start: 07-06-2019 End: 09-25-2021 take 1 tablet by mouth every eight hours as needed for pain Ibuprofen 800 MG tablet Discontinued 800 mg PO EVERY 8 HOURS NEEDED as needed for Pain Score 1-10/10 20 0 July 06, 2019 1:14pm September 25, 2021 9:50am Miscellaneous Medical Supply misc (4 sources) Start: 08-19-2023 End: 08-13-2024 Miscellaneous Medical Supply misc Discontinued 1 NMA MC ONCE 1 360 0 August 19, 2023 12:00am August 12, 2024 12:00am August 13, 2024 12:12am Chronic obstructive pulmonary disease Chronic obstructive pulmonary disease, unspecified Handicap placard Start: 08-19-2023 End: 08-13-2024 Miscellaneous Medical Supply misc Discontinued 1 NMA MC ONCE 1 360 August 19, 2023 12:00am August 12, 2024 12:00am August 13, 2024 12:12am Handicap placard montelukast 10 mg oral tablet (4 sources) Leukotriene Receptor Antagonist Start: 10-15-2023 End: 12-26-2023 take 1 tablet by mouth once daily in the evening Montelukast 10 mg tablet Discontinued 10 mg PO EVERY EVENING 90 3 October 15, 2023 12:00am December 26, 2023 10:36am On Hold: Order Completed Nebulizers (6 sources) Start: 06-03-2023 End: 06-03-2023 Nebulizers Discontinued 0 .Route 1 June 03, 2023 12:00am June 03, 2023 4:34pm As directed Nebulizers misc (4 sources) Start: 06-03-2023 End: 06-03-2023 Nebulizers misc Discontinued 0 .Route 1 0 June 03, 2023 1:00am June 03, 2023 5:34pm Chronic obstructive pulmonary disease Acute exacerbation of chronic obstructive pulmonary disease Chronic obstructive pulmonary disease, unspecified Chronic obstructive pulmonary disease with (acute) exacerbation As directed Start: 06-03-2023 End: 06-03-2023 Nebulizers misc Discontinued 0 .Route June 03, 2023 1:00am June 03, 2023 5:34pm As directed 24 hr nicotine 0.875 mg/hr transdermal system (20 sources) Cholinergic Nicotinic Agonist Start: 06-02-2023 End: 07-30-2023 apply 1 dose transdermal route every twenty-four hours Nicotine 21 mg/24 hr patch 24 hour Discontinued 1 NMA TD Q24H 28 July 16, 2023 2:03pm July 30, 2023 3:09pm Start: 06-02-2023 End: 07-16-2023 apply 1 dose transdermal route every twenty-four hours Nicotine Active 1 PATCH TD Q24H July 16, 2023 1:03pm Start: 07-24-2022 End: 05-21-2023 apply 1 dose transdermal route every twenty-four hours Nicotine 21 mg/24 hr patch 24 hour Discontinued 1 NMA TD Q24H 28 October 15, 2022 4:44pm November 21, 2022 2:48pm Start: 07-24-2022 End: 05-21-2023 apply 1 dose transdermal route every twenty-four hours Nicotine Discontinued 1 PATCH TD Q24H October 15, 2022 3:44pm November 21, 2022 1:48pm Nirmatrelvir-Ritonavir (Paxlovid) 300 mg (150 mg x 2)-100 mg tablets,dose pack (11 sources) Start: 04-30-2023 End: 05-21-2023 Nirmatrelvir-Ritonavir (Paxlovid) 300 mg (150 mg x 2)-100 mg tablets,dose pack Discontinued 0 PO .COMPLEX 30 0 April 30, 2023 1:00am May 21, 2023 5:51pm take TWO 150 mg tablets of nirmatrelvir with ONE 100 mg tablet of ritonavir twice daily for 5 days PO Start: 04-30-2023 End: 05-21-2023 Nirmatrelvir-Ritonavir (Paxl ovid) 300 mg (150 mg x 2)-100 mg tablets,dose pack Discontinued 0 PO .COMPLEX 30 April 30, 2023 1:00am May 21, 2023 5:51pm take TWO 150 mg tablets of nirmatrelvir with ONE 100 mg tablet of ritonavir twice daily for 5 days PO Start: 04-30-2023 End: 05-21-2023 Nirmatrelvir-Ritonavir (Paxl ovid) 300 mg (150 mg x 2)-100 mg tablets,dose pack Discontinued 0 PO .COMPLEX April 30, 2023 12:00am May 21, 2023 4:51pm take TWO 150 mg tablets of nirmatrelvir with ONE 100 mg tablet of ritonavir twice daily for 5 days PO nitrofurantoin, macrocrystals 25 mg / nitrofurantoin, monohydrate 75 mg oral capsule (10 sources) Nitrofuran Antibacterial Start: 06-20-2023 End: 06-27-2023 take 1 capsule by mouth every twelve hours at mealtime Nitrofurantoin Monohyd/M-Cryst 100 mg capsule Discontinued 1 NMA PO Q12H 14 7 0 June 20, 2023 1:00am June 26, 2023 1:00am June 27, 2023 1:05am administer with a meal/food; swallow whole; do not open, crush, dissolve , or chew omeprazole 20 mg delayed release oral capsule (13 sources) Proton Pump Inhibitor Start: 09-15-2020 End: 09-25-2021 take 2 capsules by mouth once daily Omeprazole 20 mg capsule,delayed release(DR/EC) Discontinued 40 mg PO DAILY September 15, 2020 12:00am September 25, 2021 9:50am Start: 09-15-2020 End: 09-25-2021 take 40 mg by mouth once daily Omeprazole Discontinued 40 MG PO DAILY September 14, 2020 11:00pm September 25, 2021 8:50am PARoxetine hydrochloride 10 mg oral tablet (13 sources) Serotonin Reuptake Inhibitor Start: 10-09-2021 End: 11-22-2021 take 1 tablet by mouth once daily Paroxetine Hcl 10 mg tablet Discontinued 10 mg PO DAILY 15 08October 09, 2021 12:00am November 22, 2021 5:57pm predniSONE 20 mg oral tablet (20 sources) Start: 08-17-2024 End: 08-22-2024 take 2 tablets by mouth once daily at mealtime Prednisone 20 mg tablet Discontinued 40 mg PO daily 10 5 August 17, 2024 12:00am August 21, 2024 12:00am August 22, 2024 12:14am Chronic obstructive pulmonary disease Chronic obstructive pulmonary disease, unspecified administer with food or milk Start: 06-23-2023 End: 08-13-2023 take 1 tablet by mouth once daily Prednisone 20 mg tablet Discontinued 20 mg PO DAILY 5 0 July 31, 2023 12:00am August 13, 2023 8:45am Start: 05-21-2023 End: 06-03-2023 take 1 tablet by mouth once daily Prednisone 20 mg tablet Discontinued 20 mg PO DAILY 5 May 21, 2023 1:00am June 03, 2023 2:13am 24 hr propranolol hydrochloride 60 mg extended release oral capsule (20 sources) beta-Adrenergic Roxana Start: 02-06-2022 End: 02-06-2022 take 1 capsule by mouth every twenty-four hours at bedtime Propranolol 120 mg capsule,extended release 24 hr Discontinued 120 mg PO AT BEDTIME 60 2 February 06, 2022 1:52pm February 06, 2022 4:07pm Start: 10-09-2021 End: 02-06-2022 take 1 capsule by mouth every twenty-four hours at bedtime Propranolol 60 mg capsule,extended release 24 hr Discontinued 60 mg PO AT BEDTIME 30 0 January 08, 2022 3:05pm February 06, 2022 1:53pm Start: 10-09-2021 End: 07-17-2022 take 1 capsule by mouth twice daily Propranolol 60 mg capsule,extended release 24 hr Discontinued 60 mg PO TWICE A DAY 60 2 February 06, 2022 4:07pm July 17, 2022 5:44pm traZODone hydrochloride 50 mg oral tablet (13 sources) Serotonin Reuptake Inhibitor Start: 09-25-2021 End: 06-19-2022 take 1 tablet by mouth at bedtime as needed Trazodone 50 mg tablet Discontinued 50 mg PO AT BEDTIME as needed for insomnia 30 September 25, 2021 12:00am June 19, 2022 6:22pm Problems Active Problems Problem Classification Problem Date Documented Date Episodic/Chronic Abdominal hernia (15 sources) Right inguinal hernia ; Translations: [Unilateral inguinal hernia, without obstruction or gangrene, not specified as recurrent] 03-07-2023 Episodic Abdominal pain (16 sources) Right lower quadrant pain; Translations: [Right lower quadrant pain] 06-23-2023 Episodic Adjustment disorders (20 sources) Grief finding; Translations: [Adjustment disorder with depressed mood] 09-25-2021 Chronic Administrative/social admission (13 sources) Follow-up status; Translations: [Other specified counseling] 09-25-2021 Episodic Allergic reactions (8 sources) Inflammatory dermatosis; Translations: [Dermatitis, unspecified] Onset: 12-23-2024 12-26-2023 Episodic Anxiety disorders (20 sources) Panic attack; Translations: [Panic disorder [episodic paroxysmal anxiety]] 09-25-2021 Chronic Cardiac and circulatory congenital anomalies (4 sources) Patent foramen ovale; Translations: [Patent foramen ovale with atrial septal aneurysm] 07-30-2023 Chronic Comment on above: The patient has a bu bble study consistent with a PFO with aneurysmal interatrial septum. The patient has no history of TIA or CVAs and I discussed this with structural heart physicians and no further evaluation or workup is indicated at this time. The PFO is not indicated for closure unless she has an embolic event. We should consider adding a baby aspirin a day unless she has any kind of bleeding issues. Cardiac dysrhythmias (16 sources) Palpitations; Translations: [Palpitations] 06-20-2022 Episodic Chronic obstructive pulmonary disease and bronchiectasis (20 sources) Chronic obstructive lung disease; Translations: [Chronic obstructive pulmonary disease, unspecified] Onset: 08-28-2023 07-17-2022 Chronic Chronic ulcer of skin (2 sources) Ulcer of lower extremity; Translations: [Non-pressure chronic ulcer of unspecified part of right lower leg with fat layer exposed] 12-23-2024 Chronic Diabetes mellitus without complication (11 sources) Hyperglycemia; Translations: [Hyperglycemia, unspecified] 11-22-2022 Episodic Essential hypertension (20 sources) Hypertensive disorder; Translations: [Essential (primary) hypertension] Onset: 03-11-2025 10-09-2021 Chronic Fever of unknown origin (3 sources) Fever, unspecified; Translations: [Fever, unspecified] Onset: 12-02-2019 Episodic Genitourinary symptoms and ill-defined conditions (16 sources) Abnormal urine; Translations: [Unspecified abnormal findings in urine] 06-20-2023 Episodic Heart valve disorders (5 sources) Mitral valve regurgitation; Translations: [Nonrheumatic mitral (valve) insufficiency] 07-23-2023 Chronic Comment on above: Patient has 1-2+ ecc entric mitral valve insufficiency with a structurally normal valve. He should be reevaluated in 1 year and if any significant changes in her symptoms. Immunizations and screening for infectious disease (3 sources) Encounter for screening for other viral diseases; Translations: [Encounter for screening for other viral diseases] Onset: 02-15-2020 Episodic Lung disease due to external agents (10 sources) Pneumonitis; Translations: [Bronchitis and pneumonitis due to chemicals, gases, fumes and vapors] 06-11-2023 Episodic Open wounds of extremities (15 sources) Injury of right foot; Translations: [Unspecified open wound, right foot, initial encounter] 03-07-2023 Episodic Comment on above: Traumatic, Penetrati ng. Other connective tissue disease (5 sources) Lateral epicondylitis of right humerus; Translations: [Lateral epicondylitis, right elbow] 09-02-2024 Episodic Other infections; including parasitic (13 sources) Infestation by Sarcoptes scabiei alphonso hominis; Translations: [Scabies] 04-04-2017 Episodic Other infections; including parasitic (20 sources) Personal history of other infectious and parasitic diseases; Translations: [History of COVID-19] 05-21-2023 Episodic Comment on above: The patient should b e considered for long-haul COVID evaluation and treatment if Dr. Montez feels that is the etiology of this diffusion capacity deficit. I gave the patient name of Dr. Omar Lawson who runs the long-haul COVID clinic at . I would defer decision on that workup to Dr. Montez. Other lower respiratory disease (1 source) Cough; Translations: [Cough] Onset: 12-02-2019 Episodic Other lower respiratory disease (17 sources) Dyspnea; Translations: [Shortness of breath] 06-20-2022 Episodic Comment on above: The patient's primar y concern is dyspnea on exertion. We walked her in the office today and her O2 sat dropped from 95% to 86% while walking on flat ground for 3 minutes. She has a history of an echocardiogram done July 22, 2023 that showed a normal left and right ventricles. Both atria are of normal size and bubble study was positive for PFO aneurysmal atrial septum. The patient had PFTs done in June 2023. This was consistent with large obstruction and diffusion capacity defect. Other lower respiratory disease (2 sources) Shortness of breath; Translations: [Shortness of breath] 06-19-2022 Episodic Other lower respiratory disease (12 sources) Dyspnea on exertion; Translations: [Other forms of dyspnea] 05-21-2023 Episodic Other lower respiratory disease (13 sources) Other forms of dyspnea; Translations: [Other respiratory abnormalities] 05-21-2023 Episodic Other lower respiratory disease (4 sources) Nodule of lung; Translations: [Solitary pulmonary nodule] 10-15-2023 Episodic Other lower respiratory disease (4 sources) Hypoxia; Translations: [Hypoxemia] 10-15-2023 Episodic Other lower respiratory disease (4 sources) Multiple nodules of lung; Translations: [Other nonspecific abnormal finding of lung field] 08-17-2024 Episodic Comment on above: 4-6 mm Other lower respiratory disease (1 source) Other nonspecific abnormal finding of lung field; Translations: [Other nonspecific abnormal finding of lung field] Onset: 01-19-2025 Episodic Other screening for suspected conditions (not mental disorders or infectious disease) (1 source) Patient encounter status; Translations: [Encounter for screening for malignant neoplasm of respiratory organs] 09-02-2023 Episodic Other skin disorders (2 sources) Blister; Translations: [Rash and other nonspecific skin eruption] 12-23-2024 Episodic Other upper respiratory disease (13 sources) Seasonal allergy; Translations: [Other seasonal allergic rhinitis] 09-25-2021 Chronic Other upper respiratory disease (9 sources) Allergic rhinitis; Translations: [Allergic rhinitis, unspecified] Onset: 01-27-2015 03-04-2022 Chronic Other upper respiratory disease (1 source) Nasal congestion; Translations: [Nasal congestion] Onset: 12-02-2019 Episodic Residual codes; unclassified (20 sources) Tobacco user; Translations: [Tobacco use] Onset: 01-27-2015 06-20-2022 Episodic Residual codes; unclassified (2 sources) Tobacco use; Translations: [Tobacco use disorder] 06-19-2022 Episodic Rheumatoid arthritis and related disease (9 sources) Inflammatory polyarthropathy; Translations: [Inflammatory polyarthropathy] Onset: 01-27-2015 03-04-2022 Chronic Screening and history of mental health and substance abuse codes (1 source) Ex-smoker; Translations: [Personal history of nicotine dependence] 09-02-2023 Episodic Skin and subcutaneous tissue infections (20 sources) Cellulitis of right ankle; Translations: [Cellulitis of right lower limb] 02-10-2023 Episodic Spondylosis; intervertebral disc disorders; other back problems (20 sources) Sciatica; Translations: [Sciatica, unspecified side] 07-07-2019 Episodic Substance-related disorders (20 sources) Tobacco dependence in remission; Translations: [Nicotine dependence, unspecified, in remission] 11-21-2022 Chronic Comment on above: Quit July 2022 Unclassified (1 source) Rash and other nonspecific skin eruption / R21(ICD-9) Onset: 12-29-2016 Unclassified (1 source) Dermatitis, unspecified / L30.9(ICD-9) Onset: 12-29-2016 Unclassified (1 source) Latex allergy status / Z91.040(ICD-9) Onset: 12-29-2016 Unclassified (1 source) Personal history of malignant neoplasm, unspecified / Z85.9(ICD-9) Onset: 12-29-2016 Unclassified (4 sources) L30.9 - Dermatitis, unspecified Urinary tract infections (16 sources) Urinary tract infectious disease; Translations: [Urinary tract infection, site not specified] 06-23-2023 Episodic Past or Other Problems Problem Classification Problem Date Documented Da te Episodic/Chronic Other lower respiratory disease (1 source) Solitary pulmonary nodule; Translations: [Solitary pulmonary nodule] Onset: 07-02-2024 Episodic Other skin disorders (1 source) Rash and other nonspecific skin eruption; Translations: [Rash and other nonspecific skin eruption] Onset: 12-29-2016 Episodic Residual codes; unclassified (9 sources) Insomnia; Translations: [Insomnia, unspecified] Onset: 01-27-2015 03-04-2022 Episodic Results Test Name Value Interpretation Reference Range Facility CBC W/Diff, Automatedon 01-18 Absolute Lymph 1.61 X10 3/uL Normal 0.83-4.51 [facility] Comment on above: Performed By: #### L 500.5560, L500.4100, L100.0100 #### [facility] [address] [place], [place], [id number] Absolute Neut 6.2 X10 3/uL Normal 2.0-7.7 [facility] Comment on above: Performed By: #### L [id number], L500.4100, L100.0100 #### [facility] [address] [place], [address] Basophils/100 WBC (Bld) 1.0 % Normal 0-1 [facility] Comment on above: Performed By: #### L [id number], L500.4100, L100.0100 #### [facility] [address] [place], [address] Eosinophils/100 WBC (Bld) 0.9 % Normal 0-5 [facility] Comment on above: Performed By: #### L 500.4050, L500.4100, L100.0100 #### [facility] [address] [place], [address] Erythrocyte distribution width (RBC) [Ratio] 13.0 % Normal 11.6-14.6 [facility] Comment on above: Performed By: #### L 500.4050, L500.4100, L100.0100 #### [facility] [address] [place], [address] Hematocrit (Bld) [Volume fraction] 43.4 % Normal 37-47 [facility] Comment on above: Performed By: #### L [id number], L500.4100, L100.0100 #### [facility] [address] [place], [address] Hemoglobin (Bld) [Mass/Vol] 14.0 g/dL Normal 12.0-15.0 [facility] Comment on above: Performed By: #### L [id number], L500.4100, L100.0100 #### [facility] [address] [place], [address] IG% 0.500 Normal 0.0-0.9 [facility] Comment on above: Result Comment: IG% - Immature Granulocytes (promyelocytes, myelocytes and metamyelocytes) > 1% indicates that a LEFT SHIFT is Present. Performed By: #### L 500.4050, L500.4100, L100.0100 #### [facility] [address] [place], [address] Lymphocytes/100 WBC (Bld) 18.2 % Low 19-41 [facility] Comment on above: Performed By: #### L 500.4050, L500.4100, L100.0100 #### [facility] [address] [place], [address] MCH (RBC) [Entitic mass] 28.6 pg Normal 27.0-32.0 [facility] Comment on above: Performed By: #### L [id number], L500.4100, L100.0100 #### [facility] [address] [place], [address] MCHC (RBC) [Mass/Vol] 32.3 g/dL Normal 32-36 [facility] Comment on above: Performed By: #### L 500.4050, L500.4100, L100.0100 #### [facility] [address] [place], [address] MCV (RBC) [Entitic vol] 88.6 fL Normal 81-99 [facility] Comment on above: Performed By: #### L 500.4050, L500.4100, L100.0100 #### [facility] [address] [place], [address] Monocytes/100 WBC (Bld) 9.7 % Normal 0-10 [facility] Comment on above: Performed By: #### L 500.4050, L500.4100, L100.0100 #### [facility] [address] [place], [address] Neutrophils/100 WBC (Bld) 69.7 % Normal 47-70 [facility] Comment on above: Performed By: #### L 500.4050, L500.4100, L100.0100 #### [facility] [address] [place], [address] Nucleated RBC (Bld) [#/Vol] 0 10*3/uL Normal 0-5 [facility] Comment on above: Performed By: #### L 500.4050, L500.4100, L100.0100 #### [facility] [address] [place], [address] Platelet mean volume (Bld) [Entitic vol] 10.8 fL Normal 6.2-12.0 [facility] Comment on above: Performed By: #### L 500.4050, L500.4100, L100.0100 #### [facility] [address] [place], [address] Platelets (Bld) [#/Vol] 239 10*3/uL Normal 150-450 [facility] Comment on above: Performed By: #### L 500.4050, L500.4100, L100.0100 #### [facility] [address] [place], [address] RBC (Bld) [#/Vol] 4.90 10*6/uL Normal 4.2-5.4 [facility] Comment on above: Performed By: #### L 500.4050, L500.4100, L100.0100 #### [facility] [address] [place], [address] RDW SD 42.0 fl Normal 35.1-43.9 [facility] Comment on above: Performed By: #### L 500.4050, L500.4100, L100.0100 #### [facility] [address] [place], [address] WBC (Bld) [#/Vol] 8.9 10*3/uL Normal 4.4-11.0 [facility] Comment on above: Performed By: #### L 500.4050, L500.4100, L100.0100 #### [facility] [address] [place], [address] Comprehensive Metabolic [facility] Ed ilon 02-14-2025 Albumin [Mass/Vol] 4.0 g/dL Normal 3.5-5.0 [facility] Comment on above: Performed By: #### L 500.4050, [id number], L100.0100 #### [facility] [address] [place], [address] Albumin/Globulin [Mass ratio] 1.7 {ratio} Normal 0.9-2.4 [facility] Comment on above: Performed By: #### L 500.4050, L500.4100, L100.0100 #### [facility] [address] [place], [address] ALK PHOS 102 U/L Normal 35-104 [facility] Comment on above: Performed By: #### L 500.4050, [id number], L100.0100 #### [facility] [address] [place], [address] ALT [Catalytic activity/Vol] 22 U/L Normal <=34 [facility] Comment on above: Performed By: #### L 500.4050, L500.4100, L100.0100 #### [facility] [address] [place], [address] AST [Catalytic activity/Vol] 21 U/L Normal <=31 [facility] Comment on above: Performed By: #### L 500.4050, L500.4100, L100.0100 #### [facility] [address] [place], [address] Bilirubin [Mass/Vol] 0.53 mg/dL Normal 0.00-1.30 [facility] Comment on above: Performed By: #### L 500.4050, L500.4100, L100.0100 #### [facility] [address] [place], [address] BUN/CRE 25.1 RATIO High 10-20 [facility] Comment on above: Performed By: #### L 500.4050, [id number], L100.0100 #### [facility] [address] [place], [address] Calcium [Mass/Vol] 9.7 mg/dL Normal 7.6-11.0 [facility] Comment on above: Performed By: #### L 500.4050, L500.4100, L100.0100 #### [facility] [address] [place], [address] Chloride [Moles/Vol] 106 mmol/L Normal 98-108 [facility] Comment on above: Performed By: #### L 500.4050, [id number], L100.0100 #### [facility] [address] [place], [address] CO2 [Moles/Vol] 22.8 mmol/L Normal 21.0-32.0 [facility] Comment on above: Performed By: #### L 500.4050, L500.4100, L100.0100 #### [facility] [address] [place], [address] Creatinine [Mass/Vol] 0.85 mg/dL Normal 0.70-1.20 [facility] Comment on above: Performed By: #### L 500.4050, L500.4100, L100.0100 #### [facility] [address] [place], [address] GAP 11 Normal 5-15 [facility] Comment on above: Performed By: #### L 500.4050, L500.4100, L100.0100 #### [facility] [address] [place], [address] GFR/1.73 sq M.predicted among non-blacks MDRD (S/P/Bld) [Vol rate/Area] 80 mL/min/{1.73_m2} Normal >60 [facility] Comment on above: Result Comment: mL/m in/1.73m2 CKD-EPI Creatinine Equation (2020) Performed By: #### L 500.4050, L500.4100, L100.0100 #### [facility] [address] [place], [address] Globulin (S) [Mass/Vol] 2.3 g/dL Normal 2.2-4.2 [facility] Comment on above: Performed By: #### L 500.4050, L500.4100, L100.0100 #### [facility] [address] [place], [address] Glucose [Mass/Vol] 96 mg/dL Normal 70-99 [facility] Comment on above: Performed By: #### L 500.4050, [id number], L100.0100 #### [facility] [address] [place], [address] Potassium [Moles/Vol] 3.9 mmol/L Normal 3.3-5.1 [facility] Comment on above: Performed By: #### L 500.4050, L500.4100, L100.0100 #### [facility] [address] [place], [address] Sodium [Moles/Vol] 140 mmol/L Normal 133-145 [facility] Comment on above: Performed By: #### L 500.4050, L500.4100, L100.0100 #### [facility] Laboratory [address] [place], [address] T PROT 6.3 g/dL Normal 5.9-8.4 [facility] Comment on above: Performed By: #### L 500.4050, L500.4100, L100.0100 #### [facility] Laboratory [address] [place], [address] Urea nitrogen [Mass/Vol] 21 mg/dL High 4-19 [facility] Comment on above: Performed By: #### L 500.4050, L500.4100, L100.0100 #### [facility] Laboratory [address] [place], [address] Lipid Profileon 02-14-2025 CHOL:HDL 2.13 Normal [facility] Comment on above: Performed By: #### L 500.4050, L500.4100, L100.0100 #### [facility] Laboratory [address] [place], [address] Cholesterol [Mass/Vol] 167 mg/dL Normal <=200 [place] Comment on above: Result Comment: Chol esterol level, Desirable <200 mg/dL Borderline high cholesterol 200-239 mg/dL High cholesterol >=240 mg/dL Recommendations of the NCEP Adult Treatment Panel for the following risk-cutoff thresholds for the [place] population. Performed By: #### L 500.4050, L500.4100, L100.0100 #### [facility] Laboratory [address] [place], [address] Cholesterol in HDL [Mass/Vol] 78 mg/dL Normal [facility] Comment on above: Result Comment: Isela onal Cholesterol Education Program (NCEP) guidelines: <40 mg/dL: Low HDL-cholesterol (major risk factor for CHD) >= 60 mg/dL: High HDL-cholesterol (negative risk factor for CHD) HDL-cholesterol is affected by a number of factors, e.g. smoking, exercise, hormones, sex and age. Performed By: #### L 500.4050, L500.4100, L100.0100 #### [facility] Laboratory [address] [place], [address] Cholesterol in LDL [Mass/Vol] 78 mg/dL Normal [facility] Comment on above: Result Comment: Bord uzcojj=283-042 mg/dL Higher Ozeh=526 mg/dL or greater Friedwald Equation for LDL-C Performed By: #### L 500.4050, L500.4100, L100.0100 #### [facility] Laboratory [address] [place], [address] Cholesterol in VLDL [Mass/Vol] 11 mg/dL Normal 5-40 [facility] Comment on above: Performed By: #### L 500.4050, L500.4100, L100.0100 #### [facility] Laboratory [address] [place], [address] Triglyceride [Mass/Vol] 55 mg/dL Normal [facility] Comment on above: Result Comment: The drugs N-Acetylcysteine and Metamizole may falsely depress this assay. Normal range: <150 mg/dL Borderline High: 150-199 mg/dL High: 200-499 mg/dL Very High: >500 mg/dL Performed By: #### L 500.4050, L500.4100, L100.0100 #### [facility] Laboratory [address] [place], [address] Chest without Contraston Chest without Contrast [facility] Imaging Services [address] [place] [address] Chest without Contrast MR#: [id number] Acct: [id number] Name: PIERCE PORTER ALCIRA Rep #: [id number] : 1965 F 59 From: Randolph choudhary MD PCP: Dr. Rowdy Jiang MD Status: REG CLI Study: Chest without Contrast Date of Exam: 01/12/25 Exam# [id number] Ordering Dr: Jamee Hickey [employer] OFFICER [employer] OFFICER-C PROCEDURE: CHEST WITHOUT CONTRAST 01/12/2025 REASON FOR EXAM: LUNG NODULES 4-6 MM IN SMOKER QUIT 2022 TECHNIQUE: Chest CT without contrast. Coronal and Sagittal reconstruction series were provided. One or more dose reduction techniques were used (e.g., Automated exposure control, adjustment of the mA and/or kV according to patient size, use of iterative reconstruction technique RADIATION DOSE SUMMARY: CTDlvol: 11.23 mGy DLP: 412.39 mGycm COMPARISON: Prior study dated June 11, 2024. FINDINGS: Hardware: None Lymph nodes: No significant lymph nodes are seen. Heart and Vasculature: The heart is nonenlarged. Calcification of the aortic arch. Coronary Artery Calcifications: Present Lungs and Airways: The previously seen left lower lobe infiltrate as cleared. Since prior study, there are new lung nodules. New irregular nodule in the medial apical segment of the left upper lobe measuring 7 mm. Stable tiny nodules in the left upper lobe peripherally. New irregular nodule in the anterior aspect of the left upper lobe as seen on axial image number 31 measuring 6 mm. There is a new 5 mm nodule in the anterior medial aspect of the right upper lobe as seen on axial image number 48 new spiculated nodule in the anterior aspect of the right upper lobe as seen on axial image number 61 measuring 4.7 mm. Mild emphysematous changes. Pleura: No pleural effusion. Upper Abdomen: Unremarkable Bones: Degenerative changes of the thoracic spine. CT/Chest without Contrast IMPRESSION: Coronary artery calcification (CAC) is is present New nodules as compared to prior study. Correlation with a PET scan recommended. Reading Location: [id number] CC: STRIKE OPERATIONS OFFICERSaeed Hickey; Dr. 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 Rowdy tang MD Age/Sex: 59/F Location: [facility] Status: Signed Intake Vital Signs 09/02/24 14:16 09/21/24 07:33 12/23/24 13:57 Height 5 ft 7 in 5 ft 7 in 5 ft 7 in Weight: 187 lb BMI 29.2 BP 106/74 Blood Pressure Location Lt brachial Position Sitting Respiration 16 Pulse 77 Pulse Source Monitor Temp 97.2 F L Temp Source Temporal Pulse Oximetry (%) 95 Oxygen Delivery Method room air Intake Visit Reasons: 3 M FU Chief Complaint: Right lower extremity rash/ulcer Patient Care Assistant Required: No Accompanied by: Self Is patient in pain?: No Allergies latex Allergy (Verified 12/23/24 13:53) Rash Medications ???Medication ???Instructions ???Recorded ???Confirmed ???Type blood pressure monitor #1 ea 10/09/21 09/02/24 Rx nebulizer and compressor #1 ea 06/03/23 09/02/24 Rx Disability Placard #1 ea 03/09/24 09/02/24 Rx ipratropium 0.5 mg-albuterol 3 mg 3 ml inhalation 4X/DAY PRN PRN 12/23/24 Rx (2.5 mg base)/3 mL nebulization shortness of breath or wheezing soln #180 mL albuterol sulfate 90 mcg/actuation 2 inh inhalation Q3-4H PRN 08/3012/23/24 Rx aerosol inhaler (Ventolin HFA) shortness of breath or wheezing #8.5 grams amlodipine 5 mg tablet 5 mg PO DAILY #90 tabs 09/02/24 Rx bupropion HCl 150 mg 24 hr tablet, 150 mg PO QAM #90 tabs 09/02/24 12/23/24 Rx extended release buspirone 5 mg tablet 5 mg PO BID #180 TABLETS 09/02/24 12/23/24 Rx hydroxyzine HCl 25 mg tablet 25 mg PO TID PRN anxiety #30 tabs 09/02/24 12/23/24 Rx umeclidinium 62.5 mcg-vilanterol 1 ea inhalation QDAY #60 ea 12/23/24 Rx 25 mcg/actuation powdr for inhalation (Anoro Ellipta) fluticasone furoate 200 1 inh inhalation QDAY #30 ea 10/1812/23/24 Rx mcg/actuation blister powder for inhalation (Arnuity Ellipta) guaifenesin 1,200 mg tablet, 1,200 mg PO Q12H #180 tabs 11/10/2 5 12/23/24 Rx extended release 12 hr (Mucinex) cephalexin 500 mg tablet 500 mg PO TID 1 week #21 tabs 0812/1012/23/24 Rx mupirocin 2 % topical ointment 1 applic topical BID #15 grams 12/1012/23/24 Rx PFSH Medical History (Updated 12/23/24 @ 16:[address] Rowdy Jiang MD) Ulcer of right lower extremity with fat layer exposed Cellulitis Blistering eruption Anxiety and depression Dermatitis Mitral valve insufficiency RLQ abdominal pain UTI (urinary tract infection) History of COVID-19 Dyspnea on exertion Wound of right foot Right groin hernia Cellulitis of right foot Cellulitis of right ankle Blood glucose elevated Tobacco abuse, in remission COPD (chronic obstructive pulmonary disease) Shortness of breath Palpitations Tobacco abuse Hypertension Panic attack Grief counseling Grief reaction Grief at loss of child Back problem Seasonal allergies Sarcoma Surgical History H/O: hysterectomy Family History Mother CVA (cerebral vascular accident) Social History Smoking Status: Former smoker quit date: 07/25/22 alcohol intake: never substance use type: does not use what type of physical activity do you participate in: walking HPI HPI Chief Complaint: Right lower extremity rash/ulcer Details: PIERCE PORTER, is a 59-year-old female presenting with recurrent skin concerns. She presents today due to concerns for right lower extremity lesions. The current lesions reportedly start as blisters, ooze fluid, ulcerate and then resolve slowly. Seen for similar presentation about a year ago and at that time, previous management included mupirocin ointment, doxycycline and cephalexin which successfully improved the condition. The patient expressed distress about her inability to determine the cause of these infections, noting unsuccessful home treatments and social discomfort due to the appearance of the sores. At her last visit, she was referred to dermatology however she states that due to resolution she did not follow-up with dermatology. No, fever or otherwise feeling of unwell. Other chronic medical conditions are stable. She would need a letter regarding her diagnosis of COPD. Attestation: Documentation on this patient encounter was supported using ambient scribe technology/ voice AI technology. The patient consented to recording for the purpose of documenting the encounter. Provider reviewed content of the generated note prior to signature. ROS Const Constitutional: No b (more content not included)... Normal [facility] XR HIP 1 VIEW LEFTon 025 XR HIP 1 VIEW LEFT ORIGINAL EXAMINATION: 1 XRAY VIEWS OF THE LEFT HIP 10/30/2024 12:16 pm COMPARISON: None HISTORY: ORDERING SYSTEM PROVIDED HISTORY: Reason for Exam: PAIN FINDINGS: There is no evidence of acute fracture. There is normal alignment. No acute joint abnormality. No focal osseous lesion. No focal soft tissue abnormality. IMPRESSION: No acute osseous abnormality. Interpreted by: Rafael Salvador DO Preliminary Report By: Rafael Salvador DO Electronically signed By Rafael Salvador DO Dictated Date: 10/30/2024 2:59:06 PM Prelim Date: 10/30/2024 2:59:44 PM Sign Date: 10/30/2024 2:59:44 PM Ordering Provider: SHARMAINE REFERRING [facility] MAIN XR HIP 1 VIEW RIGHTon 2024 XR HIP 1 VIEW RIGHT ORIGINAL EXAMINATION: ONE XRAY VIEW OF THE RIGHT HIP 10/30/2024 12:15 pm COMPARISON: None. HISTORY: ORDERING SYSTEM PROVIDED HISTORY: Reason for Exam: PAIN FINDINGS: The hip demonstrates normal alignment. No evidence of acute fracture. No focal osseus lesion. Pelvis is intact. IMPRESSION: No acute abnormality of the hip. Interpreted by: Rafael Salvador DO Preliminary Report By: Rafael Salvador DO Electronically signed By Rafael Salvador DO Dictated Date: 10/30/2024 2:59:48 PM Prelim Date: 10/30/2024 3:00:05 PM Sign Date: 10/30/2024 3:00:05 PM Ordering Provider: SHARMAINE REFERRING [facility] MAIN [place] - Individual Treatment Pl anon 09-21-2024 [place] - Individual Treatment Plan [facility] Pulmonary Rehab Reports [address] [place] [address] [place] - Individual Treatment Plan MR#: [id number] Acct: [id number] Name: PIERCE PORTER Rep #: [id number] : 1965 59 From: Michael Pizarro BS, RVT PCP: Dr. Rowdy Jiang MD Exercise - Initial Assessment Visit Session Number:: 30 (Pt has 6 session remaining. Pt had been inconsistent in attending rehab. Will encourage pt.) Physician Prescribed Exercise Modalities: Treadmill, SciFit Stepper and SciFit Lateral [place] Current METSs:: 3.2 Resting Blood Pressure: 136/76 Maximum Exercise Blood Pressure: 144/80 Minimum SpO2 with exercise: 91 EKG Type: NSR to ST Nutrition/Wt Mgmt - Initial Visit Session Number:: 30 Weight Management Admit Height:: 5 ft 7 in Admit Weight:: 193 lb Admit BMI:: 30.2 Nutrition/Wt Mgmt - 30-Day Visit Date of Eval: 09/21/24 Session Number:: 30 Weight Management Height: 5 ft 7 in Weight:: 193 lb BMI: 30.2 Nutrition/Wt Mgmt - 60-Day Visit Date of Eval: 09/21/24 Session Number:: 30 Weight Management Height: 5 ft 7 in Weight:: 193 lb BMI: 30.2 Weight Goals Progress:: Not progressing (Pt has 6 session remaining. Pt had been inconsistent in attending rehab. Will encourage pt. Pt has attended rehab twice in the past month.) Nutrition/Wt Mgmt - 90-Day Visit Session Number:: 30 Weight Management Height: 5 ft 7 in Weight:: 193 lb BMI: 30.2 Weight Goals Progress:: Not progressing (Pt has 6 session remaining. Pt had been inconsistent in attending rehab. Will encourage pt. Pt has attended rehab twice in the past month.) Nutrition/Wt Mgmt - Final Visit Date of Eval: 09/21/24 Session Number:: 30 Weight Management Height: 5 ft 7 in Weight:: 193 lb BMI: 30.2 Psychosocial - Initial Assess Visit Session Number:: 30 Problems/Goals History of Emotional Disorders: Anxious and Depression Psychosocial Goals: 1. Patient is free from overwhelming symtoms of depression (or anxiety, 2. Identifies personal stressors states the strategies for managing, 3. Identifies activities to decrease isolation and/or symptoms of, 4. Improved psychosocial coping skills., 5. Verbalizes coping strategies., 6. Adequate treatment of depression. and 7. Improved Q.O.L. Self-reported stressors: Family and Financial Psychosocial Test Tool Used:: PHQ-9 Questionnaire PHQ-9 Score: 7 Referral to Behavioral Health PS - Interventions: Yes: Attend Stress Management Classes Intervention/Plan: See List Interventions/Plan: : Assess stressors,coping strategies signs of derpression on admission, Instruct/assist pt to develop coping personal stress Mgt strategies, Refer to Behavioral Health if appropriate, Refer to Physician if appropriate, Instruct patient to recognize signs symptoms of depression, Instruct patient to recog and Other additional plan/intervention Comments:: Pt states she is looking for a new counselor and declined assistance. Psychosocial - 30-Day Visit Date of Eval: 09/21/24 Session Number:: 30 Problems/Goals History of Emotional Disorders: Anxious and Depression Psychosocial Goals: 1. Patient is free from overwhelming symtoms of depression (or anxiety, 2. Identifies personal stressors states the strategies for managing, 3. Identifies activities to decrease isolation and/or symptoms of, 4. Improved psychosocial coping skills., 5. Verbalizes coping strategies., 6. Adequate treatment of depression. and 7. Improved Q.O.L. Self-reported stressors: Family and Financial Psychosocial Test Tool Used:: PHQ-9 Questionnaire PHQ-9 Score: 7 Referral to Behavioral Health PS - Interventions: Yes: Attend Stress Management Classes Plan Interventions/Plan: : Assess stressors,coping strategies signs of derpression on admission, Instruct/assist pt to develop coping personal stress Mgt strategies, Refer to Behavioral Health if appropriate, Refer to Physician if appropriate, Instruct patient to recognize signs symptoms of depression, Instruct patient to recog and Other additional plan/intervention Comments:: Pt states she is looking for a new counselor and declined assistance. Psychosocial - 60-Day Visit Date of Eval: 09/21/24 Session Number:: 30 Problems/Goals History of Emotional Disorders: Anxious and Depression Psychosocial Goals: 1. Patient is free from overwhelming symtoms of depression (or anxiety, 2. Identifies personal stressors states the strategies for managing, 3. Identifies activities to decrease isolation and/or symptoms of, 4. Improved psychosocial coping skills., 5. Verbalizes coping strategies., 6. Adequate treatment of depression. and 7. Improved Q.O.L. Self-reported stressors: Family and Financial Psychosocial Test Tool Used:: PHQ-9 Questionnaire PHQ-9 Score: 7 Referral to Behavioral Health PS - Interventions: Yes: Attend Stress Management Classes Plan Interventions/Plan: : Asses (more content not included)... Normal [facility] Internal Medicine Office Vis virgil 09-02-2024 Internal Medicine Office Visit [facility] [address] [place] [address] OFFICE VISIT Date of Service: 09/02/24 MR#: [id number] Acct: [id number] Name: PIERCE PORTER Rep #: [id number] : 1965 Provider: USMAN Ryan Age/Sex: 59/F Location: [facility] Status: Signed Intake Vital Signs 08/17/24 08:50 09/02/24 14:16 Height 5 ft 7 in 5 ft 7 in Weight: 194 lb 193 lb BMI 30.4 30.2 BP 144/90 H 118/78 Blood Pressure Location Lt brachial Lt brachial Position Sitting Sitting Respiration 18 16 Pulse 89 93 Pulse Source Monitor Monitor Temp 97.5 F L 96.8 F L Temp Source Temporal Pulse Oximetry (%) 95 93 Oxygen Delivery Method room air room air Intake Visit Reasons: ACUTE - MED REFILLS Chief Complaint: med refills Patient Care Assistant Required: No Accompanied by: Self Is patient in pain?: No Allergies latex Allergy (Verified 09/02/24 14:13) Rash Medications ???Medication ???Instructions ???Recorded ???Confirmed ???Type blood pressure monitor #1 ea 10/09/21 09/02/24 Rx nebulizer and compressor #1 ea 06/03/23 09/02/24 Rx fluticasone furoate 200 1 inh inhalation QDAY #30 ea 10/1409/02/24 Rx mcg/actuation blister powder for inhalation (Arnuity Ellipta) guaifenesin 1,200 mg tablet, 1,200 mg PO Q12H #180 tabs 4 09/02/24 Rx extended release 12 hr (Mucinex) umeclidinium 62.5 mcg-vilanterol 1 ea inhalation QDAY #60 ea 09/02/24 Rx 25 mcg/actuation powdr for inhalation (Anoro Ellipta) Disability Placard #1 ea 03/09/24 09/02/24 Rx ipratropium 0.5 mg-albuterol 3 mg 3 ml inhalation 4X/DAY PRN PRN 09/02/24 Rx (2.5 mg base)/3 mL nebulization shortness of breath or wheezing soln #180 mL albuterol sulfate 90 mcg/actuation 2 inh inhalation Q3-4H PRN 08/3009/02/24 Rx aerosol inhaler (Ventolin HFA) shortness of breath or wheezing #8.5 grams amlodipine 5 mg tablet 5 mg PO DAILY #90 tabs 09/02/24 Rx bupropion HCl 150 mg 24 hr tablet, 150 mg PO QAM #90 tabs 09/02/24 09/02/24 Rx extended release buspirone 5 mg tablet 5 mg PO BID #180 TABLETS 09/02/24 09/02/24 Rx hydroxyzine HCl 25 mg tablet 25 mg PO TID PRN anxiety #30 tabs 09/02/24 09/02/24 Rx Have you fallen in the past year?: No PFSH Medical History Anxiety and depression Dermatitis Mitral valve insufficiency RLQ abdominal pain UTI (urinary tract infection) History of COVID-19 Dyspnea on exertion Wound of right foot Right groin hernia Cellulitis of right foot Cellulitis of right ankle Blood glucose elevated Tobacco abuse, in remission COPD (chronic obstructive pulmonary disease) Shortness of breath Palpitations Tobacco abuse Hypertension Panic attack Grief counseling Grief reaction Grief at loss of child Back problem Seasonal allergies Sarcoma Surgical History H/O: hysterectomy Family History Mother CVA (cerebral vascular accident) Social History Smoking Status: Former smoker quit date: 07/25/22 alcohol intake: never substance use type: does not use what type of physical activity do you participate in: walking HPI HPI Chief Complaint: med refills Details: PIERCE PORTER, is a 59 F who presents to the office today for medication refills. She states that she has been out of her meds for a few days. Patient has been on blood pressure medications for the past 3 years. She does not currently check her BP at home at all. She states that she does got to pulmonary rehab and thus has this checked regularly. She states that she always asks if it is good and they tell her that it is She used to smoke but stopped 2 years ago. She does drink one cup of coffee per day otherwise she drinks water only. She does not consume ETOH Patient also has some issues with her right elbow for the past several months. There was no injury that she can think of. She has not had swelling or any changes on inspection. She notices that the pains are worse at night while asleep. She states that she has not noticed any pains with movements but when she is lifting something heavy such as milk gallon ROS Const Constitutional: No body ache, excessive sweating, fatigue, fever(s), frequent falls, headache(s), snoring, weakness, weight change, sleep problems or change in appetite Eyes Eyes: No blurry vision, change in vision, eye pain or Light sensitivity ENT ENT: No abnormal hearing, ear or mastoid pain, tinnitus, nasal congestion, headache(s), neck pain or sore throat Resp Respiratory: No cough, shortness of breath, snoring or wheezing Cardio Cardiology: No chest pain at rest (more content not included)... Normal [facility] [place] - Individual Treatment Pl anon 08-26-2024 [place] - Individual Treatment Plan [facility] Pulmonary Rehab Reports [address] [place] [address] [place] - Individual Treatment Plan MR#: [id number] Acct: [id number] Name: PIERCE PORTER ALCIRA Rep #: [id number] : 1965 59 From: Michael Pizarro BS, RVT PCP: Dr. Rowdy Jiang MD Exercise - Initial Assessment Visit Session Number:: 23 Physician Prescribed Exercise Modalities: Treadmill, SciFit Stepper and SciFit Lateral [place] Current METSs:: 3.2 Resting Blood Pressure: 128/80 Maximum Exercise Blood Pressure: 160/90 Minimum SpO2 with exercise: 90 EKG Type: NSR to ST Nutrition/Wt Mgmt - Initial Visit Session Number:: 23 Weight Management Admit Height:: 5 ft 7 in Admit Weight:: 193 lb Admit BMI:: 30.2 Nutrition/Wt Mgmt - 30-Day Visit Date of Eval: 08/26/24 Session Number:: 23 Weight Management Height: 5 ft 7 in Weight:: 193 lb BMI: 30.2 Nutrition/Wt Mgmt - 60-Day Visit Session Number:: 23 Weight Management Height: 5 ft 7 in Weight:: 193 lb BMI: 30.2 Nutrition/Wt Mgmt - 90-Day Visit Session Number:: 23 Weight Management Height: 5 ft 7 in Weight:: 193 lb BMI: 30.2 Nutrition/Wt Mgmt - Final Visit Date of Eval: 08/26/24 Session Number:: 23 Weight Management Height: 5 ft 7 in Weight:: 193 lb BMI: 30.2 Weight Goals Progress:: Progressing (Pt has attended nutrition class. Low sodium heart healthy diet encouraged. Will continue to weigh pt weekly.) Psychosocial - Initial Assess Visit Session Number:: 23 Problems/Goals History of Emotional Disorders: Anxious and Depression Psychosocial Goals: 1. Patient is free from overwhelming symtoms of depression (or anxiety, 2. Identifies personal stressors states the strategies for managing, 3. Identifies activities to decrease isolation and/or symptoms of, 4. Improved psychosocial coping skills., 5. Verbalizes coping strategies., 6. Adequate treatment of depression. and 7. Improved Q.O.L. Psychosocial Test Tool Used:: Pulmonary QOL and PHQ-9 Questionnaire PHQ-9 Score: 7 Referred to MD for counseling:: No Referral to Behavioral Health PS - Interventions: Yes: Attend Stress Management Classes Intervention/Plan: See List Interventions/Plan: : Assess stressors,coping strategies signs of derpression on admission, Instruct/assist pt to develop coping personal stress Mgt strategies, Refer to Behavioral Health if appropriate, Refer to Physician if appropriate, Instruct patient to recognize signs symptoms of depression and Instruct patient to recog Comments:: Pt has been looking for a new counselor. Psychosocial - 30-Day Visit Date of Eval: 08/26/24 Session Number:: 23 Problems/Goals History of Emotional Disorders: Anxious and Depression Psychosocial Goals: 1. Patient is free from overwhelming symtoms of depression (or anxiety, 2. Identifies personal stressors states the strategies for managing, 3. Identifies activities to decrease isolation and/or symptoms of, 4. Improved psychosocial coping skills., 5. Verbalizes coping strategies., 6. Adequate treatment of depression. and 7. Improved Q.O.L. Psychosocial Test Tool Used:: Pulmonary QOL and PHQ-9 Questionnaire PHQ-9 Score: 7 Referred to MD for counseling:: No Referral to Behavioral Health PS - Interventions: Yes: Attend Stress Management Classes Plan Interventions/Plan: : Assess stressors,coping strategies signs of derpression on admission, Instruct/assist pt to develop coping personal stress Mgt strategies, Refer to Behavioral Health if appropriate, Refer to Physician if appropriate, Instruct patient to recognize signs symptoms of depression and Instruct patient to recog Comments:: Pt has been looking for a new counselor. Psychosocial - 60-Day Visit Session Number:: 23 Problems/Goals History of Emotional Disorders: Anxious and Depression Psychosocial Goals: 1. Patient is free from overwhelming symtoms of depression (or anxiety, 2. Identifies personal stressors states the strategies for managing, 3. Identifies activities to decrease isolation and/or symptoms of, 4. Improved psychosocial coping skills., 5. Verbalizes coping strategies., 6. Adequate treatment of depression. and 7. Improved Q.O.L. Depression:: Self report and Anxiety Psychosocial Test Tool Used:: Pulmonary QOL and PHQ-9 Questionnaire PHQ-9 Score: 7 Referred to MD for counseling:: No Referral to Behavioral Health PS - Interventions: Yes: Attend Stress Management Classes Plan Interventions/Plan: : Assess stressors,coping strategies signs of derpression on admission, Instruct/assist pt to develop coping personal stress Mgt strategies, Refer to Behavioral Health if appropriate, Refer to Physician if appropriate, Instruct patient to recognize signs symptoms of depression and Instruct patient to recog Comments:: Pt has been looking for a new counselor. Psychosocial - 90-Day Visit Session Number:: 23 Problems/Goals (more content not included)... Normal [facility] Pulmonary Visit Reporton Pulmonary Visit Report [facility] Pulmonary Medicine of [address] [place] [address] OFFICE VISIT Date of Service: 08/17/24 MR#: [id number] Acct: [id number] Name: PIERCE PORTER ALCIRA Rep #: [id number] : 1965 Provider: DENISE Hickey Age/Sex: 59/F Location: [facility] Status: Signed Assessment and Plan Assessment and Plan (1) Multiple pulmonary nodules: Status: Acute Comment: 4-6 mm Plan: We will continue to monitor by repeating a diagnostic CT of the chest 6 months from the 1 performed in May. The patient will return to the office in December to discuss test results. (2) COPD (chronic obstructive pulmonary disease): Status: Chronic Qualifiers: COPD type: unspecified COPD Qualified Code(s): J44.9 - Chronic obstructive pulmonary disease, unspecified Plan: Deteriorated. She does appear to be in exacerbation today. I do not believe that antibiotics are necessary, however I am placing her on 40 mg of prednisone daily for 5 days. She becomes agitated and mean if she is on a long course of prednisone. No change in maintenance medications, she is typically controlled with the use of triple therapy on Arnuity and Anoro. No additional testing at this time. Continue pulmonary rehab. Follow-up in the office in December. Contact the office with any new or worsening symptoms in the meantime. (3) Nicotine dependence, cigarettes, in remission: Status: Chronic Comment: Quit July 2022 Plan: Encourage ongoing smoking cessation. Orders: Orders Chest without Contrast 12/06/24 R91.8 - Other nonspecific abnormal finding of lung field Medications: New prednisone administer with food or milk 40 mg (2 x 20 mg) PO QDAY 5 days 10 tabs 0RF J44.9 - Chronic obstructive pulmonary disease, unspecified Plan Details Follow Up: 12/17/24 ([facility]) HPI 3 m fu Chief Complaint: Test results HPI Comments Details: This patient presents to the office today to discuss recent test results. She is ambulatory and currently on room air. She is accompanied today by her sister. She has not recently been seen in the ED or urgent care for any respiratory illness. She has not required any antibiotics or prednisone for any breathing problems. She is compliant with the use of Arnuity 1 puff daily. She does report rinsing her mouth out after each use. She denies any medication side effect such as sore throat or thrush. She is also compliant with Anoro 1 puff daily, Mucinex once daily and DuoNebs twice daily. If you recall, she quit smoking in July of 2022. She has shortness of breath on exertion. She does have occasional wheezing. This seems to be more prevalent since she was exposed to a campfire a few days ago. She even noticed that on Friday at pulmonary rehab she became hypoxic when working out, which is odd for her. She denies any cough, sputum production or hemoptysis. She denies any chest tightness, chest pain or palpitations. She also denies any fever, chills or body aches. Test results personally viewed patient: CT of the chest without contrast completed on June 11, 2024. Moderate central lobar and paraseptal emphysema. Multiple pulmonary nodules again minified. Right upper lobe 0.4 cm. Right lower lobe 0.6 cm. Anterior left upper lobe 0.4 cm. Additional small nodules are seen, without change from prior. No new pulmonary nodules are seen. There is a new patchy airspace opacity in the left lower lobe. The previous posterior right upper lobe nodule is seen on this study and is diminished from prior. Intake Vital Signs 03/09/24 08:39 05/28/24 11:11 08/17/24 08:50 Height 5 ft 7 in 5 ft 7 in 5 ft 7 in Weight: 194 lb BMI 30.4 BP 144/90 H Blood Pressure Location Lt brachial Position Sitting Respiration 18 Pulse 89 Pulse Source Monitor Temp 97.5 F L Temperature Source Temporal Artery Pulse Oximetry (%) 95 Oxygen Delivery Method room air Intake Visit Reasons: 3 m fu Chief Complaint: Results- follow up Patient Care Assistant Required: No Accompanied by: Sister Allergies latex Allergy (Verified 08/17/24 14:30) Rash Medications ???Medication ???Instructions ???Recorded ???Confirmed ???Type blood pressure monitor #1 10/09/21 03/09/24 Rx nebulizer and compressor #1 ea 06/03/23 03/09/24 Rx hydroxyzine HCl 25 mg tablet 25 mg PO TID PRN anxiety #7 tabs 0 06/27/23 08/17/24 Rx fluticasone furoate 200 1 inh inhalation QDAY #30 10/1408/17/24 Rx mcg/actuation blister powder for inhalation (Arnuity Ellipta) guaifenesin 1,200 mg tablet, 1,200 mg PO Q12H #180 tabs 4 08/17/24 Rx extended release 12 hr (Mucinex) umeclidinium 62.5 mcg-vilanterol 1 ea inhalation QDAY #60 08/17/24 Rx 25 mcg/actuation powdr for inhalation (Anoro Ellipta) albuterol sulfate (more content not included)... Normal [facility] [place] - Individual Treatment Pl anon 07-27-2024 [place] - Individual Treatment Plan [facility] Pulmonary Rehab Reports [address] [place] [address] [place] - Individual Treatment Plan MR#: [id number] Acct: [id number] Name: PIERCE PORTER Rep #: [id number] : 1965 59 From: Michael Pizarro BS, RVT PCP: Dr. Rowdy Jiang MD Exercise - Initial Assessment Visit Session Number:: 14 Physician Prescribed Exercise Modalities: Treadmill, SciFit Stepper and SciFit Lateral [place] Current METSs:: 3.2 Target HR:: 130 (97-130) Current RPD:: 2 Maximum Exercise HR:: 112 Resting Blood Pressure: 122/72 Maximum Exercise Blood Pressure: 150/88 Minimum SpO2 with exercise: 90 EKG Type: NSR to ST with rare ectopy Nutrition/Wt Mgmt - Initial Visit Session Number:: 14 Weight Management Admit Height:: 5 ft 7 in Admit Weight:: 193 lb Admit BMI:: 30.2 Nutrition/Wt Mgmt - 30-Day Visit Date of Eval: 07/27/24 Session Number:: 14 Weight Management Height: 5 ft 7 in Weight:: 193 lb BMI: 30.2 Nutrition/Wt Mgmt - 60-Day Visit Session Number:: 14 Weight Management Height: 5 ft 7 in Weight:: 193 lb BMI: 30.2 Weight Goals Progress:: Progressing (Pt attended nutrition class yesterday. Heart healthy low sodium diet encouraged.) Nutrition/Wt Mgmt - 90-Day Visit Date of Eval: 07/27/24 Session Number:: 14 Weight Management Height: 5 ft 7 in Weight:: 193 lb BMI: 30.2 Weight Goals Progress:: Progressing (Pt attended nutrition class yesterday. Heart healthy low sodium diet encouraged.) Nutrition/Wt Mgmt - Final Visit Session Number:: 14 Weight Management Height: 5 ft 7 in Weight:: 193 lb BMI: 30.2 Psychosocial - Initial Assess Visit Session Number:: 14 Problems/Goals History of Emotional Disorders: Anxious and Depression Psychosocial Goals: 1. Patient is free from overwhelming symtoms of depression (or anxiety, 2. Identifies personal stressors states the strategies for managing, 3. Identifies activities to decrease isolation and/or symptoms of, 4. Improved psychosocial coping skills., 5. Verbalizes coping strategies., 6. Adequate treatment of depression. and 7. Improved Q.O.L. Psychosocial Test Tool Used:: Pulmonary QOL and PHQ-9 Questionnaire Referred to MD for counseling:: No Referral to Behavioral Health PS - Interventions: Yes: Attend Stress Management Classes Intervention/Plan: See List Interventions/Plan: : Assess stressors,coping strategies signs of derpression on admission, Instruct/assist pt to develop coping personal stress Mgt strategies, Refer to Behavioral Health if appropriate, Refer to Physician if appropriate, Instruct patient to recognize signs symptoms of depression, Instruct patient to recog and Other additional plan/intervention Comments:: Pt is looking for a new counselor Psychosocial - 30-Day Visit Date of Eval: 07/27/24 Session Number:: 14 Problems/Goals History of Emotional Disorders: Anxious and Depression Psychosocial Goals: 1. Patient is free from overwhelming symtoms of depression (or anxiety, 2. Identifies personal stressors states the strategies for managing, 3. Identifies activities to decrease isolation and/or symptoms of, 4. Improved psychosocial coping skills., 5. Verbalizes coping strategies., 6. Adequate treatment of depression. and 7. Improved Q.O.L. Psychosocial Test Tool Used:: Pulmonary QOL and PHQ-9 Questionnaire Referred to MD for counseling:: No Referral to Behavioral Health PS - Interventions: Yes: Attend Stress Management Classes Plan Interventions/Plan: : Assess stressors,coping strategies signs of derpression on admission, Instruct/assist pt to develop coping personal stress Mgt strategies, Refer to Behavioral Health if appropriate, Refer to Physician if appropriate, Instruct patient to recognize signs symptoms of depression, Instruct patient to recog and Other additional plan/intervention Comments:: Pt is looking for a new counselor Psychosocial - 60-Day Visit Session Number:: 14 Problems/Goals History of Emotional Disorders: Anxious and Depression Psychosocial Goals: 1. Patient is free from overwhelming symtoms of depression (or anxiety, 2. Identifies personal stressors states the strategies for managing, 3. Identifies activities to decrease isolation and/or symptoms of, 4. Improved psychosocial coping skills., 5. Verbalizes coping strategies., 6. Adequate treatment of depression. and 7. Improved Q.O.L. Psychosocial Test Tool Used:: Pulmonary QOL and PHQ-9 Questionnaire Referred to MD for counseling:: No Referral to Behavioral Health PS - Interventions: Yes: Attend Stress Management Classes Plan Interventions/Plan: : Assess stressors,coping strategies signs of derpression on admission, Instruct/assist pt to develop coping personal stress Mgt strategies, Refer to Behavioral Health if appropriate, Refer to Physician if appropriate, Instruct patient to recognize signs symptoms of depression, Inst (more content not included)... Normal [facility] [place] - Individual Treatment Pl anon 06-29-2024 [place] - Individual Treatment Plan [facility] Pulmonary Rehab Reports [address] [place] [address] [place] - Individual Treatment Plan MR#: [id number] Acct: [id number] Name: PIERCE PORTER Rep #: [id number] : 1965 59 From: Michael Pizarro BS, RVT PCP: Dr. Rowdy Jiang MD Exercise - Initial Assessment Visit Session Number:: 5 Physician Prescribed Exercise Modalities: Treadmill, SciFit Stepper and SciFit Lateral [place] Target HR:: 122 (97-122) Current RPD:: 2-3 Maximum Exercise HR:: 123 Resting Blood Pressure: 134/78 Maximum Exercise Blood Pressure: 156/74 Minimum SpO2 with exercise: 89 EKG Type: NSR to ST Nutrition/Wt Mgmt - Initial Visit Session Number:: 5 Weight Management Admit Height:: 5 ft 7 in Admit Weight:: 185 lb Admit BMI:: 29.0 Nutrition/Wt Mgmt - 30-Day Visit Date of Eval: 06/29/24 Session Number:: 5 Weight Management Height: 5 ft 7 in Weight:: 185 lb BMI: 29.0 Nutrition/Wt Mgmt - 60-Day Visit Date of Eval: 06/29/24 Session Number:: 5 Weight Management Height: 5 ft 7 in Weight:: 185 lb BMI: 29.0 Weight Goals Progress:: Not progressing (Pt has attended 5 sessions. Pt has missed due to car trouble.) Nutrition/Wt Mgmt - 90-Day Visit Session Number:: 5 Weight Management Height: 5 ft 7 in Weight:: 185 lb BMI: 29.0 Weight Goals Progress:: Not progressing (Pt has attended 5 sessions. Pt has missed due to car trouble.) Nutrition/Wt Mgmt - Final Visit Session Number:: 5 Weight Management Height: 5 ft 7 in Weight:: 185 lb BMI: 29.0 Psychosocial - Initial Assess Visit Session Number:: 5 Problems/Goals History of Emotional Disorders: Anxious and Depression (Pt is looking for a new counselor.) Psychosocial Goals: 1. Patient is free from overwhelming symtoms of depression (or anxiety, 2. Identifies personal stressors states the strategies for managing, 3. Identifies activities to decrease isolation and/or symptoms of, 4. Improved psychosocial coping skills., 5. Verbalizes coping strategies., 6. Adequate treatment of depression. and 7. Improved Q.O.L. Self-reported stressors: Family Psychosocial Test Tool Used:: PHQ-9 Questionnaire Referral to Behavioral [facility] PS - Interventions: Yes: Attend Stress Management Classes Intervention/Plan: See List Interventions/Plan: : Assess stressors,coping strategies signs of derpression on admission, Instruct/assist pt to develop coping personal stress Mgt strategies, Refer to Behavioral Health if appropriate, Refer to Physician if appropriate, Instruct patient to recognize signs symptoms of depression and Instruct patient to recog Psychosocial - 30-Day Visit Date of Eval: 06/29/24 Session Number:: 5 Problems/Goals History of Emotional Disorders: Anxious and Depression (Pt is looking for a new counselor.) Psychosocial Goals: 1. Patient is free from overwhelming symtoms of depression (or anxiety, 2. Identifies personal stressors states the strategies for managing, 3. Identifies activities to decrease isolation and/or symptoms of, 4. Improved psychosocial coping skills., 5. Verbalizes coping strategies., 6. Adequate treatment of depression. and 7. Improved Q.O.L. Self-reported stressors: Family Psychosocial Test Tool Used:: PHQ-9 Questionnaire Referral to Behavioral Health PS - Interventions: Yes: Attend Stress Management Classes Plan Interventions/Plan: : Assess stressors,coping strategies signs of derpression on admission, Instruct/assist pt to develop coping personal stress Mgt strategies, Refer to Behavioral Health if appropriate, Refer to Physician if appropriate, Instruct patient to recognize signs symptoms of depression and Instruct patient to recog Psychosocial - 60-Day Visit Date of Eval: 06/29/24 Session Number:: 5 Problems/Goals History of Emotional Disorders: Anxious and Depression (Pt is looking for a new counselor.) Psychosocial Goals: 1. Patient is free from overwhelming symtoms of depression (or anxiety, 2. Identifies personal stressors states the strategies for managing, 3. Identifies activities to decrease isolation and/or symptoms of, 4. Improved psychosocial coping skills., 5. Verbalizes coping strategies., 6. Adequate treatment of depression. and 7. Improved Q.O.L. Self-reported stressors: Family Psychosocial Test Tool Used:: PHQ-9 Questionnaire Referral to Behavioral Health PS - Interventions: Yes: Attend Stress Management Classes Plan Interventions/Plan: : Assess stressors,coping strategies signs of derpression on admission, Instruct/assist pt to develop coping personal stress Mgt strategies, Refer to Behavioral Health if appropriate, Refer to Physician if appropriate, Instruct patient to recognize signs symptoms of depression and Instruct patient to recog Psychosocial - 90-Day Visit Session Number:: 5 Problems/Goals History of Emotional Disorders: Anxious and Depression (Pt is looking (more content not included)... Normal [facility] Chest without Contraston Chest without Contrast [facility] Imaging Services [address] [place] [address] [id number] Chest without Contrast MR#: [id number] Acct: [id number] Name: PIERCE PORTER Rep #: [id number] : 1965 F 59 From: Valente nguyen MD PCP: Dr. Rowdy Jiang MD Status: REG CLI Study: Chest without Contrast Date of Exam: 06/11/24 Exam# [id number] Ordering Dr: Jamee Hickey STRIKE OPERATIONS OFFICER STRIKE OPERATIONS OFFICER-C -[id number] INDICATION: MULTIPLE NODULES IN SMOKER EXAMINATION: CT CHEST WITHOUT CONTRAST - CT Chest W/O Contrast Injection TECHNIQUE: Helically acquired images were obtained of the chest. The protocol utilizes one or more of the following dose reduction techniques: automated exposure control, adjustment of mA and/or kV according to patient size,and/or use of iterative reconstruction technique. IV Contrast dosage and agent: None. RADIATION DOSAGE (If Supplied By Facility): CTDIvol = ( 9.74 ) mGy, DLP = ( 331.50 ) mGycm COMPARISON: Prior studies dated: 02/04/24 and 10/06/2023 FINDINGS: LUNGS, PLEURA AND LARGE AIRWAYS: The central airways are patent. There is moderate centrilobular and paraseptal emphysema. There are multiple pulmonary nodules again identified. For instance, right upper lobe 0.4 cm nodule on series 4 image 29. Right lower lobe 0.6 cm nodule on image 73. Anterior left upper lobe 0.4 cm nodule at the apex on image 11. Additional small nodules are seen, without change from prior. No new pulmonary nodules are seen. There is new patchy airspace opacity in the left lower lobe. Of note, the previous posterior right upper lobe nodule seen on the study from 10/06/2023 is diminished from prior, now with a linear appearance of probable scarring. No pleural effusion or thickening. No pneumothorax. THYROID: No thyroid lesions. HEART AND PERICARDIUM: Heart size is normal. No pericardial effusion. CORONARY ARTERIES: Coronary artery calcification is seen. VESSELS: Thoracic aorta is not dilated. MEDIASTINUM AND GENI: No mediastinal or hilar adenopathy. Esophagus is unremarkable. No hiatal hernia. UPPER ABDOMEN: No acute pathology. BONES: No suspicious lytic or blastic abnormality. CT/Chest without Contrast IMPRESSION: Moderate emphysema. Multiple pulmonary nodules are again identified, without change from prior imaging therefore suggesting benign etiology. As such, continued annual lung cancer screening is recommended. There is new airspace opacity of the left lower lobe, suspicious for pneumonia. Electronically Signed: Valente Freeman MD at 1:17 EST Reading Location ID and State: [facility] / [place] Tel , Service support , CC: DENISE Hickey; Dr. 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 Rowdy Jiang MD Exercise - Initial Assessment Visit Session Number:: 2 Physician Prescribed Exercise Modalities: Treadmill, SciFit Stepper and SciFit Lateral [place] Current METSs:: 2.2 Target HR:: 122 (97-122) Current RPD:: 2-3 Maximum Exercise HR:: 122 Resting Blood Pressure: 124/82 Maximum Exercise Blood Pressure: 142/80 Minimum SpO2 with exercise: 91 EKG Type: NSR to ST Nutrition/Wt Mgmt - Initial Visit Session Number:: 2 Weight Management Admit Height:: 5 ft 7 in Admit Weight:: 185 lb Admit BMI:: 29.0 Nutrition/Wt Mgmt - 30-Day Visit Date of Eval: 05/28/24 Session Number:: 2 Weight Management Height: 5 ft 7 in Weight:: 185 lb BMI: 29.0 Weight Goals Progress:: Progressing (Pt has attended 2 sessions so far. Pt is scheduled to attend nutrition class. Pt will be encouraged to eat a healthy low sodium diet.) Nutrition/Wt Mgmt - 60-Day Visit Session Number:: 2 Weight Management Height: 5 ft 7 in Weight:: 185 lb BMI: 29.0 Nutrition/Wt Mgmt - 90-Day Visit Session Number:: 2 Weight Management Height: 5 ft 7 in Weight:: 185 lb BMI: 29.0 Nutrition/Wt Mgmt - Final Visit Session Number:: 2 Weight Management Height: 5 ft 7 in Weight:: 185 lb BMI: 29.0 Psychosocial - Initial Assess Visit Session Number:: 2 Problems/Goals History of Emotional Disorders: Anxious and Depression (Pt is looking for a new counselor.) Psychosocial Goals: 1. Patient is free from overwhelming symtoms of depression (or anxiety, 2. Identifies personal stressors states the strategies for managing, 3. Identifies activities to decrease isolation and/or symptoms of, 4. Improved psychosocial coping skills., 5. Verbalizes coping strategies., 6. Adequate treatment of depression. and 7. Improved Q.O.L. Self-reported stressors: Other Psychosocial Test Tool Used:: Pulmonary QOL and PHQ-9 Questionnaire Referred to MD for counseling:: No Referral to Behavioral Health PS - Interventions: Yes: Attend Stress Management Classes Intervention/Plan: See List Interventions/Plan: : Assess stressors,coping strategies signs of derpression on admission, Instruct/assist pt to develop coping personal stress Mgt strategies, Refer to Behavioral Health if appropriate, Refer to Physician if appropriate, Instruct patient to recognize signs symptoms of depression, Instruct patient to recog and Other additional plan/intervention Psychosocial - 30-Day Visit Date of Eval: 05/28/24 Session Number:: 2 Problems/Goals History of Emotional Disorders: Anxious and Depression (Pt is looking for a new counselor.) Psychosocial Goals: 1. Patient is free from overwhelming symtoms of depression (or anxiety, 2. Identifies personal stressors states the strategies for managing, 3. Identifies activities to decrease isolation and/or symptoms of, 4. Improved psychosocial coping skills., 5. Verbalizes coping strategies., 6. Adequate treatment of depression. and 7. Improved Q.O.L. Self-reported stressors: Other Psychosocial Test Tool Used:: Pulmonary QOL and PHQ-9 Questionnaire Referred to MD for counseling:: No Referral to Behavioral Health PS - Interventions: Yes: Attend Stress Management Classes Plan Interventions/Plan: : Assess stressors,coping strategies signs of derpression on admission, Instruct/assist pt to develop coping personal stress Mgt strategies, Refer to Behavioral Health if appropriate, Refer to Physician if appropriate, Instruct patient to recognize signs symptoms of depression, Instruct patient to recog and Other additional plan/intervention Psychosocial - 60-Day Visit Session Number:: 2 Problems/Goals History of Emotional Disorders: Anxious and Depression (Pt is looking for a new counselor.) Psychosocial Goals: 1. Patient is free from overwhelming symtoms of depression (or anxiety, 2. Identifies personal stressors states the strategies for managing, 3. Identifies activities to decrease isolation and/or symptoms of, 4. Improved psychosocial coping skills., 5. Verbalizes coping strategies., 6. Adequate treatment of depression. and 7. Improved Q.O.L. Self-reported stressors: Other Psychosocial Test Tool Used:: Pulmonary QOL and PHQ-9 Questionnaire Referred to MD for counseling:: No Referral to Behavioral Health PS - Interventions: Yes: Attend Stress Management Classes Plan Interventions/Plan: : Assess stressors,coping strategies signs of derpression on admission, Instruct/assist pt to develop coping personal stress Mgt strategies, Refer to Behavioral Health if appropriate, Refer to Physician if appropriate, Instruct patient to recognize signs symptoms of depression, Instruc (more content not included)... Normal [facility] [place] - History AND Physicalon 04-29-2024 [place] - History & Physical [facility] Pulmonary Rehab Reports [address] [place] [address] [place] - History Physical MR#: [id number] Acct: [id number] Name: PIERCE PORTER ALCIRA Rep #: [id number] : 1965 59 From: Michael Pizarro BS, RVT PCP: Dr. Rowdy Jiang MD History of Present Illness General Arrival date:: 04/29/24 Arrival time:: 14:12 Date of Referral:: 03/24/24 Date of Evaluation: 04/29/24 Referring Physician: Dr. Oretga Montez Primary Diagnosis: COPD GOLD II Moderate History of Present Pulmonary Event mMRC Breathless Scale: When is the patient short of breath? Y/N Grade: Description of Breathlessness: 0 I only get breathless with strenuous exercise. 1 I get short of breath when hurrying on level ground or walking up a slight hill. 2 On level ground, I walk slower than people of the same age because of breathless, or have to stop for breath when walking at my own pace. 3 I stop for breath after walking 100 yards or after a few minutes on level ground. 4 I am too breathless to leave the house or I am breathless when dressing. Respiratory Problems: Yes Retain Secretions, Fatigue, Wheezing, Able to Speak in Full Sentences, Dizziness, Hoarseness, Anxiety, Panic, Dyspnea with Activity and Cough with Secretions; No Limited Range of Motion, Chest Pain, Ankle Swelling, Dyspnea at Rest or Dyspnea Lying Down Flat Medications Home Medications blood pressure monitor #1 ea 10/09/21 nebulizer and compressor #1 ea 06/03/23 hydroxyzine HCl 25 mg tablet 25 mg PO TID PRN anxiety #7 tabs 06/27/23 miscellaneous medical supply 1 ea miscellaneous ONCE 12 months #1 ea 08/19/23 fluticasone furoate 200 mcg/actuation blister powder for inhalation (Arnuity Ellipta) 1 inh inhalation QDAY #30 ea 10/15/23 guaifenesin 1,200 mg tablet, extended release 12 hr (Mucinex) 1,200 mg PO Q12H #180 tabs 10/15/23 umeclidinium 62.5 mcg-vilanterol 25 mcg/actuation powdr for inhalation (Anoro Ellipta) 1 ea inhalation QDAY #60 ea 10/15/23 ipratropium 0.5 mg-albuterol 3 mg (2.5 mg base)/3 mL nebulization soln 3 ml inhalation 4X/DAY PRN PRN shortness of breath or wheezing #180 mL 11/04/23 albuterol sulfate 90 mcg/actuation aerosol inhaler (Ventolin HFA) 2 inh inhalation Q3-4H PRN 12/26/23 amlodipine 5 mg tablet 5 mg PO DAILY #90 tabs 12/26/23 bupropion HCl 150 mg 24 hr tablet, extended release 150 mg PO QAM #90 tabs 12/27/23 buspirone 5 mg tablet 5 mg PO BID #180 TABLETS 02/03/24 Disability Placard #1 ea 03/09/24 amoxicillin 875 mg-potassium clavulanate 125 mg tablet 1 tab PO BID #20 tabs 03/17/24 Allergies Allergies latex Allergy (Verified 03/09/24 14:40) Rash Secretions Thick:: Yes Amount/Day:: 2 TBSP (4-5 TBSP) Cough:: Yes AM: Yes PM: Yes Sleep Disorder Evaluation Hx of Sleep Apnea: No Do you snore loudly (louder than talking or can be heard through closed doors)?: No Do you often feel tired/ fatigued/ sleepy during daytime?: No Has anyone observed you stop breathing during sleep?: No History of Hypertension (for STOP score): Yes STOP Results: Negative Medical Utilization Medical Devices Do you use a peak flow meter at home?: No Do you use a spacer device with your inhalers?: No Medical Utilization Number of hospital visits in the last year?: 0 Number of emergency room visits in the last year?: 2 Do you see your physician on a regular schedule?: Yes How often?: around 5 times a year. Advanced Directives Advanced Directives Power of Vice President Underwriting: No Living Will: No Advance Directives Information Provided: No Advance Directives on File: No DNR Order?:: No Past Medical History Covid-19 Screening Physicial Symptoms Other Clinical Concerns Exposure Risk Pertinent Comorbidities Has a chronic lung disease or moderate to severe asthma:: Yes Medical History Medical History Anxiety and depression Dermatitis Mitral valve insufficiency RLQ abdominal pain UTI (urinary tract infection) History of COVID-19 Dyspnea on exertion Wound of right foot Right groin hernia Cellulitis of right foot Cellulitis of right ankle Blood glucose elevated Tobacco abuse, in remission COPD (chronic obstructive pulmonary disease) Shortness of breath Palpitations Tobacco abuse Hypertension Panic attack Grief counseling Grief reaction Grief at loss of child Back problem Seasonal allergies Sarcoma Surgical History Surgical History H/O: hysterectomy Significant Family History Family History Mother CVA (cerebral vascular accident) Social History Smoking History Smoking Status: Former smoker Years Smokin Packs Smoked per Day: 1 (stopped 2 years ago) Hx Tobacco Use: Yes Occupation Occupation (List type of work in comments):: [employer] (more content not included)... Normal [facility] [place] - Individual Treatment Pl anon 04-29-2024 [place] - Individual Treatment Plan [facility] Pulmonary Rehab Reports [address] [place] [address] [place] - Individual Treatment Plan MR#: [id number] Acct: [id number] Name: PIERCE PORTER Rep #: [id number] : 1965 59 From: Michael Pizarro BS, RVT PCP: Dr. Rowdy Jiang MD General Information2 General Information Admitting Diagnosis: COPD GOLD II Moderate Gold Classification:: GOLD 2: Moderate PFT FEV1:: 51 FVC:: 72 FEV1/FVC%:: 70 Personal Learning Style/Barriers Personal Learning Style:: Audio/Visual Barriers to Learning: None Stage of change r/t lifestyle modifications: Contemplation Education/Goals [place] Patient Goals: Increase muscle strength: Initial Assessment, Experience less dyspnea: Initial Assessment, Improve energy level: Initial Assessment, Participate in home exercise: Initial Assessment, Improve the ability to cope with ADLs: Initial Assessment, Improve knowledge of lung disease: Initial Assessment, Control panic/anxiety: Initial Assessment, Improve diet and nutrition: Initial Assessment, Improve my quality of life: Initial Assessment and Reduce Stress/relaxation techniques: Initial Assessment Exercise - Initial Assessment Visit Date of Eval: 04/29/24 (initial eval ) Problem/Goals Problems: Deconditioning, No regular exercise and Knowledge deficit exercise safety Goals:: Aerobic exercise 30-60 mins x 12 weeks [36 sessions] Functional Capacity Test Number of feet walked: 663 Lowest SPO2 %: 93 Physician Prescribed Exercise Modalities: Treadmill, Rower, Schwinn Airdyne AD-7, SciFit Stepper, SciFit Pro-II Ergometer and SciFit Lateral [place] Frequency (days/week): 3 Duration (Minutes):: 30-45 Intensity: 60-80% of age predicted maximum heart rate reserve Current METSs:: 2 Target HR:: 122 (97-122) EKG Type: NSR with sinus arrhythmia nonspecific ST and T wave abnormality Plan Plan and Plan to Review:: Benefits of exercise, Core components of exercise, How to measure dyspnea level, How to monitor dyspnea level, Exercise intensity, Exercise safety guideline, Home exercise guidelines and Maggie: 3-4/11-13 Home Exercise Mode: Walking Nutrition/Wt Mgmt - Initial Visit Date of Eval: 04/29/24 (initial eval ) Problems/Goals Problems: Overweight Goals: Wt Loss 1-2 lbs per week Weight Management Knowledge Deficit Management of:: Overweight Admit Height:: 5 ft 7 in Admit Weight:: 183 lb Admit BMI:: 28.6 Intervention Referral to dietitian:: No Will attend diet classes:: Yes Intervention/Plan: Instruct on ideal BMI set weight loss goal w/patient, Assist pt to ID incorporate diet changes for weight loss by S9, Refer to Structured Weight Loss program as appropriate, Encourage goal of using 250-300dcal per session for weight loss and Other additional plan/interventions Plan Nutrition Plan: Yes: Review BMI or WC identify target wt strategies for wt control, Yes: Nutrition education class:, Yes: Medication education class [Prednisone]:, Yes: Weight control education class:, Yes: Education re: Need for ongoing weight monitoring, Yes: Food diary: and Yes: Physical activity log: Nutrition/Wt Mgmt - 30-Day Weight Management Height: 5 ft 7 in Weight:: 183 lb BMI: 28.6 Nutrition/Wt Mgmt - 60-Day Weight Management Height: 5 ft 7 in Weight:: 183 lb BMI: 28.6 Nutrition/Wt Mgmt - 90-Day Weight Management Height: 5 ft 7 in Weight:: 183 lb BMI: 28.6 Nutrition/Wt Mgmt - Final Weight Management Height: 5 ft 7 in Weight:: 183 lb BMI: 28.6 Psychosocial - Initial Assess Visit Date of Eval: 04/29/24 (initial eval ) Problems/Goals History of Emotional Disorders: Anxious and Depression (Patient is looking for a new counselor. ) Psychosocial Goals: 1. Patient is free from overwhelming symtoms of depression (or anxiety, 2. Identifies personal stressors states the strategies for managing, 3. Identifies activities to decrease isolation and/or symptoms of, 4. Improved psychosocial coping skills., 5. Verbalizes coping strategies., 6. Adequate treatment of depression. and 7. Improved Q.O.L. Psychosocial Test Tool Used:: Pulmonary QOL and PHQ-9 Questionnaire Referred to MD for counseling:: No Referral to Behavioral Health PS - Interventions: Yes: Attend Stress Management Classes Intervention/Plan: See List Interventions/Plan: : Assess stressors,coping strategies signs of derpression on admission, Instruct/assist pt to develop coping personal stress Mgt strategies, Refer to Behavioral Health if appropriate, Refer to Physician if appropriate, Instruct patient to recognize signs symptoms of depression, Instruct patient to recog and Other additional plan/intervention Comments:: Pt is currently in counseling Psychosocial - 30-Day Problems/Goals History of Emotional Disorders: Anxious and Depression (Patient is looking for a new counselor. ) Psychosocial Goals: 1. Patient is free from overwhelming symto (more content not included)... [facility] 09-17-2023 36 Pt notified and Verbalized understanding that an alternative (Anoro) was sent to her Pharmacy by Zana Syed MD [facility] 09-16-2023 36 Checking to see If you saw my message about a cheaper alternative to Trelegy. Pt left a voice mail asking about her inhalers [place] [phone] Attempted to LVM for Pt to call back and a voice mail wasn't set up. Will try and call later. [place] [id number] 36 PA Denial - Fluticasone-Umeclid in-Vilant (Trelegy Ellipta) 200-62.5-25 MCG/ACT aerosol powder. Must show evidence of at least two 14 day trials of LABA/LAMA's, tried and failed for approval for payment [place] [phone] Notified Pt of Zana Syed MD's advisement. Pt states she can't afford Trelegy and is sick of waiting on it because this has taken over 4 months and she is sick of getting woken up and disturbed, working midnights. Pt requesting an alternative medication. Please advise [place] [id number] 36 See other notes [place] [id number] Spoke to Pt regarding PA on Trelegy to let her know it was still being worked on. Pt is concerned because she only has a couple days of it left. Says, She spoke to a Who said they would get the Med sent to there pharmacy and mailed to her for free because she doesn't drive. Not sure who Pt spoke to. Nothing was charted. Didn't know If you knew anything about this. Would Pt be able to get samples to hold her off until her PA gets approved. If she can get a ride to pick them up. Please advise? [facility] 36 Prior Auth - Fluticasone-Umeclid in-Vilant (Trelegy Ellipta) 200-62.5-25 MCG/ACT aerosol powder started. [facility] 36on 09-08-2023 36 unable to leave voicemail because one wasn't set up. Will try later. [facility] 36on 09-05-2023 36 Called Pt to Inform her that this Nurse contacted her Pharmacy to get an update on Trelegy PA. Wanted to let Pt know Pharmacy started another PA 3 days ago. Was unable to leave voicemail because one wasn't set up. Will try to call back later. [facility] 36on 09-03-2023 36 Script received for [employer]. As patient has medicaid, she will not need product manager financial services through [facility]. Please send to her local pharmacy, PA will be required. Thank you! [facility] 36on 09-02-[address] [facility] Office Visiton 08-28-2023 Follow-up visit [id number] Pierce Porter 1965 F Date Provider Department Center 08/28/2023 JUVENAL BOOTHE [facility] None Family History Problem Relation Age of Onset Arthritis Father Comments: rheumatoid Substance Abuse Father Cancer Mother Comments: Colon Cirrhosis Father Family Status - Relation Status Age at Father Mother Level of Service:28976 [place] OFFICE/OUTPATIENT NEW MODERATE MDM 45 MINUTES Reason for Visit and Comments: New Patient [542] - Pt says she has a hx of COPD, but it was under control and she wasn't having any concerns. She says she was dx with Covid in April and since then has been having breathing issues. Shortness of Breath [092417] Normal [facility] Progress Noteon 08-28-2023 Progress Note [facility]- Pulmonary and Sleep Medicine NEW PATIENT VISIT-PULMONARY 09/02/2023 REFERRING PHYSICIAN: No referring provider defined for this encounter. CHIEF COMPLAINT/REASON FOR REFERRAL: Chief Complaint Patient presents with New Patient Pt says she has a hx of COPD, but it was under control and she wasn't having any concerns. She says she was dx with Covid in April and since then has been having breathing issues. Shortness of Breath History of Present Illness: Pierce Porter is a 58 y.o. female former smoker (41 pack years, quit on 07/25/22) with COPD, recent covid19 infection who presents for evaluation and treatment of dyspnea. The patient was referred by her crew person in [place] for further evaluation of dyspnea, that has reportedly worsened significantly since her COVID infection. Patient contracted COVID-19 in April 2023. She did not need to be hospitalized nor needed supplemental oxygen. She was not treated with antivirals or steroids. Her acute symptoms of fever and cough. Those resolved, but significant dyspnea remains. She describes mMRC grade 3 dyspnea. Denies chest pain or palpitations. No presyncope or syncope. No wheezing. No hemoptysis. Reviewed records from [facility] in detail. PA lateral chest x-ray was performed on 06/02/2023. Radiology report noted hyperinflated lungs without evidence of any focal airspace consolidation, interstitial disease, pleural effusions, or pneumothorax. Abdominal ultrasound performed on 07/18/2023 was notable for mild atrophy of the right kidney normal. Labs from 06/02/2023 showed normal hemoglobin of 15 g/dL and otherwise normal CBC. BUN was 24, creatinine was 1.07. BMP was otherwise normal. PFTs were performed on 07/08/2023. Moderate obstruction was present with FEV1 of 1.48 L. No acute bronchodilator response. Body. Spock refeed showed air trapping but normal TLC. Diffusion capacity was 47% predicted. TTE performed on 06/23/2023 showed LVEF 65%, mild tricuspid regurgitation, mild to moderate mitral valve insufficiency. Bubble study was positive for PFO. RVSP was estimated at 25mmHg. She was evaluated by Dr. No in cardiology at [facility], and there was felt to be no indication for intervention on the PFO. No prior history of TIAs or CVAs. Regarding treatment for COPD, the patient has a PRN albuterol inhaler. She was prescribed Trelegy inhaler but found it to be too expensive. She has been getting samples of Trelegy from her PCP and finds it to be helpful. She has not participated in pulmonary rehab. She does feel that over the last 2 weeks, his dyspnea has started to improve. She has started gardening again. She values being physically active very much. She thinks her sense of smell is actually heightened significantly after getting over the COVID infection. She wonders what else she can do in addition to the inhalers to help with dyspnea on exertion. Denies chest pain, palpitations, cough, sputum, hemoptysis. She has an upcoming appointment for CT chest without contrast at [facility]. Assessment and Plan: 1. Chronic obstructive pulmonary disease, unspecified COPD type (HCC) - PFTs were performed on 07/08/2023. Moderate obstruction was present with FEV1 of 1.48 L. No acute bronchodilator response. Body. Spock refeed showed air trapping but normal TLC. Diffusion capacity was 47% predicted. - continue ics/laba/lama -- Trelegy 200-- and prn albuterol - recommended pulm rehab - by latest pfts, patient does not meet criteria for BLVR 2. Dyspnea on exertion - worsened after recent covid19 infection. Patient improving slowly over the past few weeks - recommended pulmonary rehab; patient is agreeable 3. Former smoker 4. Screening for lung cancer - abstinent from smoking since 07/2022 - scheduled for CT chest next week at [facility]; we will get reports and images of this once it's done Juvenal Syed MD Pulmonary, Critical Care, and Sleep Medicine Portions of the information within this encounter were entered using an electronic dictation system. Best attempts were made to edit/proofread the information prior to note completion. Despite the review of information, some errors may remain. If there are questions related to the information contained within the note please contact the signing physician directly. 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 Normal [facility] Basophil percentageOrdered B y: Rowdy Jiang on 06-23-2023 Basophil percentage 5-10 SEEN /hpf 0-5 [facility] Bilirubin Test strip Ql (U)O rdered By: Rowdy Jiang on 06-23-2023 Bilirubin Ql (U) Negative Negative [facility] Culture, urineOrdered By: Santa Jiang on 06-23-2023 Bacteria identified Cx Nom (U) Mixed Gram Pos & Gram Neg Org [facility] Ketones Test strip Ql (U)Ord ered By: Rowdy Jiang on 06-23-2023 Ketones Ql (U) Negative Negative [facility] Mucus LM Ql (Urine sed)Order ed By: Rowdy Jiang on 06-23-2023 Mucus Ql (Urine sed) 0 SEEN /hpf [facility] Nitrite Test strip Ql (U)Ord ered By: Rowdy Jiang on 06-23-2023 Nitrite Ql (U) Negative Negative [facility] No Panel InformationOrdered By: Rowdy Jiang on 06-23-2023 Urine RBC 0 SEEN /hpf 0-5 [facility] Protein Test strip Ql (U)Ord ered By: Rowdy Jiang on 06-23-2023 Protein Ql (U) 15 mg/dl Negative [facility] Squamous epithelial cells de tection in urine sediment by light microscopyOrdered By: Rowdy Jiang on 06-23-2023 Epithelial cells.squamous LM Ql (Urine sed) 0-5 SEEN /hpf 5-10 [facility] Urine blood detectionOrdered By: Rowdy Jiang on 06-23-2023 RBC Ql (U) Negative Negative [facility] Urine clarityOrdered By: Jean Marie Jiang on 06-23-2023 Clarity (U) Clear Clear [facility] Urine color determinationOrd ered By: Rowdy Jiang on 06-23-2023 Color (U) Yellow Yellow [facility] Urine glucose detectionOrder ed By: Rowdy Jiang on 06-23-2023 Glucose Ql (U) Normal mg/dl Normal [facility] Urine leukocyte esterase det ection by dipstickOrdered By: Rowdy Jiang on 06-23-2023 Leukocyte esterase Test strip Ql (U) 100 /ul Negative [facility] Urine pHOrdered By: Anu Jiang on 06-23-2023 pH (U) 6.5 [pH] 5.0 - 8.0 [facility] Urine sediment bacteria coun t by microscopy (number/high power field)Ordered By: Rowdy Jiang on 06-23-2023 Bacteria LM.HPF (Urine sed) [#/Area] 1 /[HPF] None Seen [facility] Urine specific gravity measu rementOrdered By: Rowdy Jiang on 06-23-2023 Specific gravity (U) [Rel density] 1.015 1.002-1.030 [facility] Urine urobilinogen measureme ntOrdered By: Rowdy Jiang on 06-23-2023 Urobilinogen Ql (U) Normal mg/dl Normal [facility] Culture, urineOrdered By: Shiv Zapata on 06-20-2023 Bacteria identified Cx Nom (U) Positive [facility] Laboratory - Chemistry and C hemistry - challengeon 06-20-2023 Bilirubin Ql (U) Negative [facility] Glucose Ql (U) Negative [facility] Ketones Ql (U) Negative [facility] pH (U) 7.0 [pH] [facility] Specific gravity (U) [Rel density] 1.010 [facility] Urobilinogen (U) [Mass/Vol] Negative [facility] Laboratory - Hematology and Cell countson 06-20-2023 Hemoglobin Ql (U) Negative [facility] Laboratory - Specimen inform ationon 06-20-2023 Clarity (U) Clear [facility] Color (U) Dk Yellow [facility] Laboratory - Urinalysison Nitrite Ql (U) Negative [facility] Protein Ql (U) 3+ [facility] No Panel Informationon 06-20 Influenza Types A,B Rapid (Clinic) Negative [facility] POC SARS CoV-2 Antigen Negative [place] Urine Leukocytes Positive [facility] Urine Non-Hemolyzed Blood [facility] Absolute lymphocyte countOrd ered By: Kel Hutson on 06-02-2023 Lymphocytes Auto (Unsp spec) [#/Vol] 1.10 10*3/uL 0.83-4.51 [facility] Basophil percentageOrdered B y: Kel Hutson on 06-02-2023 Basophils/100 WBC (Bld) 1.0 % 0-1 [facility] Chloride [Moles/Vol] 107 mmol/L 98-107 [facility] Eosinophils/100 WBC (Bld) 0.2 % 0-5 [facility] Glucose [Mass/Vol] 106 mg/dL 74-106 [facility] Comment on above: Fasting Glucose resu lt from 100 to 125 mg/dL suggests IMPAIRED HOMEOSTASIS per A.D.A. criteria. Neutrophils (Bld) [#/Vol] 7.7 10*3/uL 2.0-7.7 [facility] Neutrophils/100 WBC (Bld) 79.4 % 47-70 [facility] Potassium [Moles/Vol] 3.9 mmol/L 3.5-5.1 [facility] Sodium [Moles/Vol] 139 mmol/L 136-145 [facility] WBC (Bld) [#/Vol] 9.7 10*3/uL 4.4-11.0 [facility] Blood erythrocytes count (nu mber/volume)Ordered By: Kel Hutson on 06-02-2023 RBC (Bld) [#/Vol] 5.02 10*6/uL 4.2-5.4 [facility] Blood hemoglobin measurement (mass/volume)Ordered By: Kel Hutson on 06-02-2023 Hemoglobin (Bld) [Mass/Vol] 15.0 g/dL 12.0-15.0 [facility] Blood lymphocytes/100 leukoc ytesOrdered By: Kel Hutson on 06-02-2023 Lymphocytes/100 WBC (Bld) 11.4 % 19-41 [facility] Blood monocytes/100 leukocyt esOrdered By: Kel Hutson on 06-02-2023 Monocytes/100 WBC (Bld) 7.7 % 0-10 [facility] Blood platelet mean volumeOr dered By: Kel Hutson on 06-02-2023 Platelet mean volume (Bld) [Entitic vol] 10.1 fL 6.2-12.0 [facility] Determination of erythrocyte mean corpuscular volume (MCV)Ordered By: Kel Hutson on 06-02-2023 MCV (RBC) [Entitic vol] 89.2 fL 81-99 [facility] Hematocrit Auto (Bld) [Volum e fraction]Ordered By: Kel Hutson on 06-02-2023 Hematocrit (Bld) [Volume fraction] 44.8 % 37-47 [facility] Laboratory - Chemistry and C hemistry - challengeOrdered By: Kel Hutson on 06-02-2023 CO2 [Moles/Vol] 23.0 mmol/L 21.0-32.0 [facility] Urea nitrogen/Creatinine [Mass ratio] 22.4 mg/mg 10-20 [facility] Laboratory - Hematology and Cell countsOrdered By: Kel Hutson on 06-02-2023 Erythrocyte distribution width (RBC) [Entitic vol] 42.5 fL 35.1-43.9 [facility] Erythrocyte distribution width (RBC) [Ratio] 13.0 % 11.6-14.6 [facility] Immature granulocytes/100 WBC (Bld) 0.300 % 0.0-0.9 [facility] Comment on above: IG% - Immature Granu locytes (promyelocytes, myelocytes and metamyelocytes) > 1% indicates that a LEFT SHIFT is Present. MCH (RBC) [Entitic mass] 29.9 pg 27.0-32.0 [facility] Nucleated RBC/100 WBC (Bld) [Ratio] 0 % 0-5 [facility] MCHC Auto (RBC) [Mass/Vol]Or dered By: Kel Hutson on 06-02-2023 MCHC (RBC) [Mass/Vol] 33.5 g/dL 32-36 [facility] No Panel InformationOrdered By: Kel Hutson on 06-02-2023 Estimated Creatinine Clearance Calc 62.81 ml/min [facility] Estimated GFR (MDRD) Amer 68 mL/min >60 [facility] Comment on above: GFR Calc Estimated GFR (MDRD) Non-Af Amer 56 mL/min >60 [facility] Comment on above: Non- GFR Calc Platelets bldOrdered By: Álvaro Hutson on 06-02-2023 Platelets (Bld) [#/Vol] 222 10*3/uL 150-450 [facility] Serum or plasma calcium magdiel urement (mass/volume)Ordered By: Kel Hutson on 06-02-2023 Calcium [Mass/Vol] 10.2 mg/dL 8.5-10.1 [facility] Serum or plasma creatinine m easurement (mass/volume)Ordered By: Kel Hutson on 06-02-2023 Creatinine [Mass/Vol] 1.07 mg/dL 0.55-1.02 [facility] Comment on above: The validity of the calculated GFR & GFRAA in patients over 70 years has not been determined. Clinical correlation is essential. Serum or plasma urea nitroge n measurement (mass/volume)Ordered By: Kel Hutson on 06-02-2023 Urea nitrogen [Mass/Vol] 24 mg/dL 7-18 [facility] Thin prep Papanicolaou smear with manual screeningOrdered By: Kel Hutson on 06-02-2023 Thin prep Papanicolaou smear with manual screening 9 5-15 [facility] CNOVon 12-22-2020 CNOV Office Visit (UCTR) ---- PIERCE PORTER ([id number]) 1965 F Date Time Provider Department 12/22/20 7:15 PM [facility] During your visit today, we recorded the following information about you: Temperature Pulse Respiration Blood pressure 98.1 degrees 97/minute 16/minute 126/86 Weight 71.6 kg Yuniel Ferguson APRN.CNP 12/22/2020 7:30 PM Signed TOOTHACHE: Your exam shows that your toothache is probably due to tooth decay and infection. Poor dental care is the main cause of this problem. Swelling and redness around a painful tooth often means you have a dental abscess. Pain medicine and antibiotics can help reduce symptoms, but you will need to see a dentist within the next few days to have your problem properly treated. Fillings or root canal work may be needed to save your tooth. If the problem is severe, your tooth may need to be pulled. Please return here right away if you have a fever over 101F, can?t swallow, or develop severe swelling. Yuniel Ferguson APRN.EXECUTIVE VP 12/22/2020 8:10 PM Signed Visit Date: December 22, 2020 Patient Name: Ms.Debra Hernan Porter Date of : 1965 MRN/E #: [id number] Chief Complaint Patient presents with: Dental Problem: [...] Pain Level: 7 Pain Location: Mouth Description: Aching;Radiating;Pr essure Duration Amount of Time: 2 Duration Units: Days Frequency: Continuous Intervention/Comfor t measure: Medication Comments: tylenol ALLERGIES Allergen Reactions [...] Follow up if signs of infection worsen Yuniel Ferguson APRN.EXECUTIVE VP Discussed above plan with patient. Pt agreeable with above plan. Referring Provider: SELF [[id number]] Allergies As of Date: 12/22/2020 Noted Allergy Reaction LATEX 04/28/2003 Date Reviewed: 12/22/2020 Reviewed by: Lydia Hoyt MA - Fully Assessed Reason for Visit: Dental Problem [31] Cmt: left upper side of mouth x2 days Primary Visit Diagnosis:Toothache [K08.89] Order(s):clindamyci n (CLEOCIN) 300 mg capsuleTake 1 capsule by mouth three times daily for 7 days.Disp: 21 capsuleRfl: 0 Prescriptions as of 12/22/2020 - clindamycin (CLEOCIN) 300 mg capsule Take 1 capsule by mouth three times daily for 7 days. - HYDROCODONE-ACETAMI NOPHEN 5 MG-500 MG TAB Take one(1) tablet every four(4) hours as needed for pain. - acetaminophen-hydro codone 5-500 mg ORAL Tab Take one(1) tablet every four(4) to six(6) hours as needed for pain. - PLAVIX 75 MG TAB .qd - ASPIRIN 325 MG TAB Take one(1) tablet daily. Problem List As Of Date 12/22/2020 Noted Resolved MALIG NEOPLASM SOFT TIS THORAX [C49.3] 03/03/2003 Other instructions from your clinician: TOOTHACHE: Your exam shows that your toothache is probably due to tooth decay and infection. Poor dental care is the main cause of this problem. Swelling and redness around a painful tooth often means you have a d (more content not included)... Normal [facility] CORONAVIRUS PCR [CCL]on REF LAB REPORT Negative Normal [facility] Comment on above: Performed By: #### 2 [id number] #### [facility],[address] [place] [id number] COVID 19 Result STRIKE OPERATIONS OFFICER Negative Normal [facility] Comment on above: Result Comment: Nega tive for COVID19 (SARS CoV2) by PCR. This test was developed and its performance characteristics determined by [facility]'s [facility] Pathology and Laboratory Medicine [place]. This test has been authorized by [facility] under an Emergency Use Authorization (EUA). This test has been validated in accordance with the FDA's Guidance Document Policy for Diagnostics Testing in Laboratories Certified to Perform High Complexity Testing under CLIA prior to Emergency use Authorization for Coronavirus Disease 2019 during the Public Health Emergency issued on July 17, 2019. [facility] [address] [place] [address] Estiven Johnson III, M.D. [id number] Performed By: #### 2 [id number] #### [address] [address] COVID 19 Source STRIKE OPERATIONS OFFICER NASAL SWAB Normal [facility] Comment on above: Performed By: #### 2 [id number] #### [facility],[address] [place] [address] CORONAVIRUS PCR [CCL]on 11-16 COVID 19 Result STRIKE OPERATIONS OFFICER Negative Normal [facility] Comment on above: Result Comment: Nega tive for COVID19 (SARS CoV2) by PCR. This test was developed and its performance characteristics determined by [facility]'s [facility] Pathology and Laboratory Medicine [place]. This test has been authorized by FDA under an Emergency Use Authorization (EUA). This test has been validated in accordance with the FDA's Guidance Document Policy for Diagnostics Testing in Laboratories Certified to Perform High Complexity Testing under CLIA prior to Emergency use Authorization for Coronavirus Disease 2019 during the Public Health Emergency issued on July 17, 2019. [address] [place] [address] Estiven Johnson III, M.D. [id number] Performed By: #### 2 [id number] #### [facility],[address] [place], [place] [id number] COVID 19 Source [employer]IKE OPERATIONS OFFICER Nasopharyngeal Swab Normal [facility] Comment on above: Performed By: #### 2 [id number] #### [facility],[address] [place] [address] Coronavirus 2019on 0 COVID 19 Source STRIKE OPERATIONS OFFICER STRIKE OPERATIONS OFFICER Normal [facility] Reference Lab Comment on above: Performed By: #### C OVID #### [facility] Microbiology [address] [place] [address] COVID 19 Result STRIKE OPERATIONS OFFICER Normal Negative for COVID19 (SARS CoV2) by PCR. [facility] Reference Lab Comment on above: Result Comment: Nega tive for This test was developed and its performance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 Phone: [facility] 09-07-2020 [facility] ([facility]) Dr. Anu Jiang Work Phone: [facility] Payers Date Payer Category Payer Unknown [id number] 2024 Self-pay [id number] 2023 Medicaid [id number] 2023 Unknown [id number] 2015 Medicaid [id number] 1965 Unknown [id number] 2.16.84 [id number] 1966 Unknown [id number] 2.16.84 [id number] 1966 Unknown [id number] 2.16. [id number] Unknown [id number] 2.16.8 [id number] Unknown [id number] 2.16.8 [id number] Unknown [id number] 2.16.8 [id number] Unknown [id number] 2.16.8 [id number] Unknown [id number] 2.16.8 [id number] Unknown [id number] 2.16.8 [id number] Unknown [id number] 2.16.8 [id number] Unknown [id number] 2.16.8 [id number] Unknown [id number] 2.16.8 [id number] Unknown [id number] 2.16.8 [id number] Unknown [id number] 2.16.8 [id number] Unknown [id number] 2.16.8 [id number] Unknown [id number] 2.16.8 [id number] Unknown [id number] 2.16.8 [id number] Unknown [id number] 2.16.8 [id number] Social History Date Type Detail Facility Start: 06-19-2022 End: 06-23-2023 Tobacco smoking status ALIS Unknown if ever smoked [facility] Start: 03-26-2022 Cigarettes [facility] Start: 1965 Sex Assigned At Female [facility] Start: 08-28-2023 End: 04-29-2024 Tobacco smoking status ALIS Ex-smoker [facility] Start: 05-19-1981 End: 07-25-2022 History of tobacco use Current smoker [facility] Start: 05-19-1981 End: 07-25-2022 History of tobacco use Cigarette Smoker [facility] Start: 08-28-2023 Cigarettes smoked current (pack per day) - Reported 1 [facility] Start: 08-28-2023 Tobacco use and exposure Smokeless tobacco non-user [facility] Start: 09-02-2023 Alcohol intake Current drinke r of alcohol (finding) [facility] Start: 08-28-2023 Tobacco use panel [facility] Start: 1965 Sex Assigned At Not on file S [facility] Start: 08-17-2024 Sex Female (finding) [facility] Mental Status Date Assessment Result Facility 06-02-2023 Cognitive function Awake;Alert;A ppropriate;Fol lows Commands [facility] Work Phone: Clinical Notes 12-22-2020 to 01-13-2025 Note Date & Type Note Facility 01-13-2025 Radiology Diagnostic study note [facility] Imaging Services [address] [place], [place] [address] Chest without Contrast MR#: [id number] Acct: [id number] Name: PIERCE PORTER Rep #: [id number] : 1965 F 59 From: Major Pineda MD PCP: Dr. Rowdy Jiang MD Status: R EG CLI Study:Chest without Contrast Date of Exam: 01/12/25 Exam# [id number] Ordering Dr: Duane Hickey NP [employer]ICER-C PROCEDURE: CHEST WITHOUT CONTRAST 01/12/2025 REASON FOR EXAM: LUNG NODULES 4-6 MM IN SMOKER QUIT 2022 TECHNIQUE: Chest CT without contrast. Coronal and Sagittal reconstruction series were provided. One or more dose reduction techniques were used (e.g., Automated exposure control, adjustment of the mA and/or kV according to patient size, use of iterative reconstruction technique RADIATION DOSE SUMMARY: CTDlvol: 11.23 mGy DLP: 412.39 mGycm COMPARISON: Prior study dated June 11, 2024. FINDINGS: Hardware: None Lymph nodes: No significant lymph nodes are seen. Heart and Vasculature: The heart is nonenlarged. Calcification of the aortic arch. Coronary Artery Calcifications: Present Lungs and Airways: The previously seen left lower lobe infiltrate as cleared. Since prior study, there are new lung nodules. New irregular nodule in the medial apical segment of the left upper lobe measuring 7 mm. Stable tiny nodules in the left upper lobe peripherally. New irregular nodule in the anterior aspect of the left upper lobe as seen on axial image number 31 measuring 6 mm. There is a new 5 mm nodule in the anterior medial aspect of the right upper lobe as seen on axial image number 48 new spiculated nodule in the anterior aspect of the right upper lobe as seen on axial image number 61 measuring 4.7 mm. Mild emphysematous changes. Pleura: No pleural effusion. Upper Abdomen: Unremarkable Bones: Degenerative changes of the thoracic spine. CT/Chest without Contrast IMPRESSION: Coronary artery calcification (CAC) is is present New nodules as compared to prior study. Correlation with a PET scan recommended. Reading Location: [id number] CC: STRIKE OPERATIONS OFFICERSaeed Hickey; Dr. 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: Signed [facility] 12-23-2024 Evaluation note Diagnosis Onset Date Resolution Cellulitis acute December 23 1:33pm Blistering eruption chronic Augus 2024 1:33pm Dermatitis chronic December 23 1:33pm Hypertension chronic December 23, 2024 1:33pm Ulcer of right lower extremity with fat layer exposed chronic December 23, 2024 1:33pm [facility] Work Phone: 1(118) 284-832704-17-2025 Evaluation note* Diagnosis Onset Date Resolution Status Admit Date Right tennis elbow acute September 02, 2024 2:08pm Anxiety and depression chronic Ap 2024 2:08pm Hypertension chronic September 02, 2024 2:08pm [facility] dondeEsta™ Work Phone: 1(232) 215-541604-01-2025 Evaluation note* Diagnosis Onset Date Resolution Status Admit Date Multiple pulmonary nodules acute August 17, 2024 2:25pm COPD (chronic obstructive pulmonary disease) chronic August 17 2:25pm Nicotine dependence, cigarettes, in remission chronic August 172024 2:25pm Right tennis elbow acute September 02, 2024 2:08pm Anxiety and depression chronic Ap 2024 2:08pm Hypertension chronic September 02, 2024 2:08pm [facility] Work Phone: 1(388) 917-356505-01-2024 Telephone encounter Note* Telephone Encounter - Lori Rob LPN - 09/17/2023 9:57 AM EDT Pt notified and Verbalized understanding that an alternative (Anoro) was sent to her Pharmacy by Ok RODGERS Happy Inspector [id number] Miscellaneous Notes* Telephone Encounter - Lori Rob LPN - 09/17/2023 9:57 AM EDT Pt notified and Verbalized understanding that an alternative (Anoro) was sent to her Pharmacy by Ok RODGERS * Telephone Encounter - Lori Rob LPN - 09/16/2023 4:07 PM EDT Checking to see If you saw my message about a cheaper alternative to Trelegy. Pt left a voice mail asking about her inhalers * Telephone Encounter - Lori Rob LPN - 09/10/2023 9:30 AM EDT Notified Pt of Zana Syed MD's advisement. Pt states she can't afford Trelegy and is sick of waiting on it because this has taken over 4 months and she is sick of getting woken up and disturbed, working midnights. Pt requesting an alternative medication. Please advise * Telephone Encounter - Lori Rob LPN - 09/09/2023 9:57 AM EDT Spoke to Pt regarding PA on Trelegy to let her know it was still being worked on. Pt is concerned because she only has a couple days of it left. Says, She spoke to a Who said they would get the Med sent to there pharmacy and mailed to her for free because she doesn't drive. Not sure who Pt spoke to. Nothing was charted. Didn't know If you knew anything about this. Would Pt be able to get samples to hold her off until her PA gets approved. If she can get a ride to pick them up. Please advise? documented in this [facility]04-30-2024 Telephone encounter Note* Telephone Encounter - Lori Rob LPN - 09/16/2023 4:07 PM EDT Checking to see If you saw my message about a cheaper alternative to Trelegy. Pt left a voice mail asking about her inhalers [id number] Miscellaneous Notes* Telephone Encounter - Lori Rob LPN - 09/16/2023 4:07 PM EDT Checking to see If you saw my message about a cheaper alternative to Trelegy. Pt left a voice mail asking about her inhalers * Telephone Encounter - Lori Rob LPN - 09/10/2023 9:30 AM EDT Notified Pt of Zana Syed MD's advisement. Pt states she can't afford Trelegy and is sick of waiting on it because this has taken over 4 months and she is sick of getting woken up and disturbed, working midnights. Pt requesting an alternative medication. Please advise * Telephone Encounter - Lori Rob LPN - 09/09/2023 9:57 AM EDT Spoke to Pt regarding PA on Trelegy to let her know it was still being worked on. Pt is concerned because she only has a couple days of it left. Says, She spoke to a Who said they would get the Med sent to there pharmacy and mailed to her for free because she doesn't drive. Not sure who Pt spoke to. Nothing was charted. Didn't know If you knew anything about this. Would Pt be able to get samples to hold her off until her PA gets approved. If she can get a ride to pick them up. Please advise? documented in this [facility]SMer[facility] [id number] Telephone encounter Note* Telephone Encounter - Sapna Solorzano LPN - 09/10/2023 1:47 PM EDT PA Denial - Scbgjewbzox-Mvwwvmyps-Ldssny (Trelegy Ellipta) 200-62.5-25 MCG/ACT aerosol powder. Mustshow evidence of at least two 14 day trials of LABA/LAMA's, tried and failed for approval for payment [id number] Miscellaneous Notes* Telephone Encounter - Sapna Solorzano LPN - 09/10/2023 1:47 PM EDT PA Joséial - Ekolwnsilbt-Opaipfjyi-Dabctb (Trelegy Ellipta) 200-62.5-25 MCG/ACT aerosol powder. Mustshow evidence of at least two 14 day trials of LABA/LAMA's, tried and failed for approval for payment * Telephone Encounter - Sapna Solorzano LPN - 09/09/2023 9:37 AM EDT Prior Auth - Mztityihvbu-Rhakghjbx-Xfnfor (Trelegy Ellipta) 200-62.5-25 MCG/ACT aerosol powder started. documented in this [facility]04-24-2024 Telephone encounter Note* Telephone Encounter - Lori Rob LPN - 09/10/2023 9:30 AM EDT Notified Pt of Zana Syed MD's advisement. Pt states she can't afford Trelegy and is sick of waiting on it because this has taken over 4 months and she is sick of getting woken up and disturbed, working midnights. Pt requesting an alternative medication. Please advise [id number] Miscellaneous Notes* Telephone Encounter - Lori Rob LPN - 09/10/2023 9:30 AM EDT Notified Pt of Zana Syed MD's advisement. Pt states she can't afford Trelegy and is sick of waiting on it because this has taken over 4 months and she is sick of getting woken up and disturbed, working midnights. Pt requesting an alternative medication. Please advise * Telephone Encounter - Lori Rob LPN - 09/09/2023 9:57 AM EDT Spoke to Pt regarding PA on Trelegy to let her know it was still being worked on. Pt is concerned because she only has a couple days of it left. Says, She spoke to a Who said they would get the Med sent to there pharmacy and mailed to her for free because she doesn't drive. Not sure who Pt spoke to. Nothing was charted. Didn't know If you knew anything about this. Would Pt be able to get samples to hold her off until her PA gets approved. If she can get a ride to pick them up. Please advise? documented in this encounterSMercy Health Urbana [id number] Miscellaneous Notes* Telephone Encounter - Lori Rob LPN - 09/09/2023 10:08 AM EDT See other notes * Telephone Encounter - Lori Rob LPN - 09/08/2023 10:31 AM EDT unable to leave voicemail because one wasn't set up. Will try later. * Telephone Encounter - Lori Rob LPN - 09/05/2023 9:02 AM EDT Called Pt to Inform her that this Nurse contacted her Pharmacy to get an update on Trelegy PA. Wanted to let Pt know Pharmacy started another PA 3 days ago. Was unable to leave [facility] because one wasn't set up. Will try to call back later. documented in this encounterSMercy Health Urbana [id number] Telephone encounter Note* Telephone Encounter - Lori Rob LPN - 09/09/2023 10:08 AM EDT See other notes [id number] Telephone encounter Note* Telephone Encounter - Lori Rob LPN - 09/09/2023 9:57 AM EDT Spoke to Pt regarding PA on Trelegy to let her know it was still being worked on. Pt is concerned because she only has a couple days of it left. Says, She spoke to a DrJose A Who said they would get the Med sent to there pharmacy and mailed to her for free because she doesn't drive. Not sure who Pt spoke to. Nothing was charted. Didn't know If you knew anything about this. Would Pt be able to get samples to hold her off until her PA gets approved. If she can get a ride to pick them up. Please advise? [id number] Telephone encounter Note* Telephone Encounter - Sapna Solorzano LPN - 09/09/2023 9:37 AM EDT Prior Auth - Gjflcpvjkpt-Janjjmebp-Sjcqhi (Trelegy Ellipta) 200-62.5-25 MCG/ACT aerosol powder started. [id number] Telephone encounter Note* Telephone Encounter - Lori Rob LPN - 09/08/2023 10:31 AM EDT unable to leave voicemail because one wasn't set up. Will try later. [place] [id number] Miscellaneous Notes* Telephone Encounter - Lori Rob LPN - 09/08/2023 10:31 AM EDT unable to leave voicemail because one wasn't set up. Will try later. * Telephone Encounter - Lori Rob LPN - 09/05/2023 9:02 AM EDT Called Pt to Inform her that this Nurse contacted her Pharmacy to get an update on Trelegy PA. Wanted to let Pt know Pharmacy started another PA 3 days ago. Was unable to leave voicemail because one wasn't set up. Will try to call back later. documented in this encounterSMercy Health Urbana [id number] Telephone encounter Note* Telephone Encounter - Lori Rob LPN - 09/05/2023 9:02 AM EDT Called Pt to Inform her that this Nurse contacted her Pharmacy to get an update on Trelegy PA. Wanted to let Pt know Pharmacy started another PA 3 days ago. Was unable to leave voicemail because one wasn't set up. Will try to call back later. [place] [id number] Telephone encounter Note* Telephone Encounter - Cosmo Otero RPh - 09/03/2023 2:35 PM EDT Script received for Trelegy. As patient has medicaid, she will not need product manager financial services through [facility].Please send to her local pharmacy, PA will be required. Thank you! [id number] Miscellaneous Notes* Telephone Encounter - Cosmo Otero RPh - 09/03/2023 2:35 PM EDT Script received for Trelegy. As patient has medicaid, she will not need product manager financial services through [facility].Please send to her local pharmacy, PA will be required. Thank you! documented in this encounterSMercy Health Urbana [id number] History of Present illness Narrative* Juvenal Syed MD - 08/28/2023 1:45 PM EDT Images from the original note were not included. [facility]- Pulmonary and Sleep Medicine NEW PATIENT VISIT-PULMONARY 09/02/2023 REFERRING PHYSICIAN: No referring provider defined for this encounter. CHIEF COMPLAINT/REASON FOR REFERRAL: Chief Complaint Patient presents with New Patient Pt says she has a hx of COPD, but it was under control and she wasn't having any concerns. She saysshe was dx with Covid in April and since then has been having breathing issues. Shortness of Breath History of Present Illness: Pierce Porter is a 58 y.o. female former smoker (41 pack years, quit on 07/25/22) with COPD, recent covid19 infection who presents for evaluation and treatment of dyspnea. The patient was referred by [place]cardiologist in [place] for further evaluation of dyspnea, that has reportedly worsened significantly since her COVID infection. Patient contracted COVID-19 in April 2023. She did not need to behospitalized nor needed supplemental oxygen. She was not treated with antivirals or steroids. Her acute symptoms of fever and cough. Those resolved, but significant dyspnea remains. She describes mMRC grade 3 dyspnea. Denies chest pain or palpitations. No presyncope or syncope. No wheezing. No hemop tysis. Reviewed records from [facility] in detail. PA lateral chest x- ray was performed on06/02/2023. Radiology report noted hyperinflated lungs without evidence of any focal airspace consolidation, interstitial disease, pleural effusions, or pneumothorax. Abdominal ultrasound performed on07/18/2023 was notable for mild atrophy of the right kidney normal. Labs from 06/02/2023 showed normalhemoglobin of 15 g/dL and otherwise normal CBC. BUN was 24, creatinine was 1.07. BMP was otherwise normal. PFTs were performed on 07/08/2023. Moderate obstruction was present with FEV1 of 1.48 L. No acute bronchodilator response. Body. Spock refeed showed air trapping but normal TLC. Diffusion capacity was47% predicted. TTE performed on 06/23/2023 showed LVEF 65%, mild tricuspid regurgitation, mild to moderate mitral valve insufficiency. Bubble study was positive for PFO. RVSP was estimated at 25mmHg. She was evaluated by Dr. No in cardiology at [facility], and there was felt to be no indication for intervention on the PFO. No prior history of TIAs or CVAs. Regarding treatment for COPD, the patient has a PRN albuterol inhaler. She was prescribed Trelegy inhaler but found it to be too expensive. She has been getting samples of Trelegy from her PCP and finds it to be helpful. She has not participated in pulmonary rehab. She does feel that over the last 2 weeks, his dyspnea has started to improve. She has started gardening again. She values being physically active very much. She thinks her sense of smell is actually heightened significantly after getting over the COVID infection. She wonders what else she can do in addition to the inhalers to help with dyspnea on exertion. Denies chest pain, palpitations, cough, sputum, hemoptysis. She has an upcoming appointment for CT chest without contrast at [facility]. Assessment and Plan: 1. Chronic obstructive pulmonary disease, unspecified COPD type (HCC) - PFTs were performed on 07/08/2023. Moderate obstruction was present with FEV1 of 1.48 L. No acute bronchodilator response. Body. Spock refeed showed air trapping but normal TLC. Diffusion capacity was 47% predicted. - continue ics/laba/lama -- Trelegy 200-- and prn albuterol - recommended pulm rehab - by latest pfts, patient does not meet criteria for BLVR 2. Dyspnea on exertion - worsened after recent covid19 infection. Patient improving slowly over the past few weeks - recommended pulmonary rehab; patient is agreeable 3. Former smoker 4. Screening for lung cancer - abstinent from smoking since 07/2022 - scheduled for CT chest next week at [facility]; we will get reports and images of this once it's done Juvenal Syed MD Pulmonary, Critical Care, and Sleep Medicine Portions of the information within this encounter were entered using an electronic dictation system. Best attempts were made to edit/proofread the information prior to note completion. Despite the review of information, some errors may remain. If there are questions related to the information contained within the note please contact the signing physician directly. 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 Chondrodystrophy COPD (chronic obstructive pulmonary disease) (HCC) History of CVA (cerebrovascular accident) Inflammatory polyarthritis (HCC) Insomnia Tobacco abuse disorder Past Surgical History Past Surgical History: Procedure Laterality Date OOPHORECTOMY 2012 OVARIAN CYST REMOVAL 2009 Allergies Allergies Allergen Reactions Latex Hives and Rash Medications Current Outpatient Medications: amLODIPine (Norvasc) 5 MG tablet, Take 5 mg by mouth daily., Disp: , Rfl: Ascorbic Acid (vitamin C) 100 MG tablet, Take 100 mg by mouth daily., Disp: , Rfl: buPROPion XL (Wellbutrin XL) 150 MG 24 hr tablet, Take 150 mg by mouth every morning., Disp: , Rfl: busPIRone (Buspar) 5 MG tablet, Take 5 mg by mouth., Disp: , Rfl: Ventolin HFA 108 (90 Base) MCG/ACT inhaler, INHALE TWO PUFFS BY MOUTH EVERY 6 HOURS NEEDED, Disp: , Rfl: Yadwqxbmref-Ybbkkspvd-Pbzdtn (Trelegy Ellipta) 200-62.5-25 MCG/ACT aerosol powder , Inhale 1 puff daily., Disp: 1 each, Rfl: 5 Social History Social History Socioeconomic History Marital status: Spouse name: Not on file Number of children: Not on file Years of education: Not on file Highest education level: Not on file Occupational History Not on file Tobacco Use Smoking status: Former Packs/day: 1.00 Years: 41.00 Additional pack years: 0.00 Total pack years: 41.00 Types: Cigarettes Start date: 1981 Quit date: 07/25/2022 Years since quittin.1 Smokeless tobacco: Never Vaping Use Vaping Use: Never used Substance and Sexual Activity Alcohol use: Yes Drug use: Not Currently Types: Marijuana Comment: does gummies occasionally Sexual activity: Not on file Other Topics Concern Not on file Social History Narrative Not on file Social Determinants of Health Financial Resource Strain: Not on file Food Insecurity: Not on file Transportation Needs: Not on file Physical Activity: Not on file Stress: Not on file Social Connections: Not on file Intimate Partner Violence: Not on file Housing Stability: Not on file FamilyHistory Family History Problem Relation Name Age of Onset Arthritis Father rheumatoid Substance Abuse Father Cancer Mother Colon Cirrhosis Father Review of Systems Review of Systems Constitutional: Positive for fatigue. Negative for chills and fever. HENT: Negative for congestion, nosebleeds, postnasal drip and rhinorrhea. Respiratory: Positive for cough and shortness of breath. Negative for chest tightness and wheezing. Cardiovascular: Negative for chest pain, palpitations and leg swelling. Gastrointestinal: Negative for abdominal pain, nausea and vomiting. Genitourinary: Negative for difficulty urinating and hematuria. Musculoskeletal: Negative for arthralgias and myalgias. Skin: Negative for rash and wound. Allergic/Immunologic: Negative for immunocompromised state. Neurological: Negative for syncope, light-headedness and headaches. Hematological: Does not bruise/bleed easily. Psychiatric/Behavioral: Negative for sleep disturbance. Physical Exam Vitals: 08/28/23 1451 BP: (!) 149/90 Pulse: 93 SpO2: 96% Weight: 174 lb (78.9 kg) Height: 5' 7 (1.702 m) Physical Exam Constitutional: General: She is not in acute distress. Appearance: Normal appearance. She is well-developed. HENT: Head: Normocephalic and atraumatic. Right Ear: External ear normal. Left Ear: External ear normal. Nose: Nose normal. Mouth/Throat: Mouth: Mucous membranes are moist. Pharynx: Oropharynx is clear. No oropharyngeal exudate. Eyes: General: No scleral icterus. Right eye: No discharge. Left eye: No discharge. Extraocular Movements: Extraocular movements intact. Conjunctiva/sclera: Conjunctivae normal. Pupils: Pupils are equal, round, and reactive to light. Neck: Thyroid: No thyromegaly. Vascular: No JVD. Cardiovascular: Rate and Rhythm: Normal rate and regular rhythm. Pulses: Normal pulses. Heart sounds: Normal heart sounds. No murmur heard. Pulmonary: Effort: Pulmonary effort is normal. No respiratory distress. Breath sounds: Normal breath sounds. No stridor. No wheezing or rhonchi. Abdominal: General: There is no distension. Palpations: Abdomen is soft. Tenderness: There is no abdominal tenderness. There is no guarding. Musculoskeletal: Cervical back: Normal range of motion and neck supple. Right lower leg: No edema. Left lower leg: No edema. Lymphadenopathy: Cervical: No cervical adenopathy. Skin: General: Skin is warm and dry. Coloration: Skin is not jaundiced. Neurological: General: No focal deficit present. Mental Status: She is alert and oriented to person, place, and time. Mental status is at baseline. Gait: Gait normal. Psychiatric: Mood and Affect: Mood normal. Behavior: Behavior normal. Thought Content: Thought content normal. Judgment: Judgment normal. LABS and Studies: Available studies were personally reviewed. Salient findings summarized in HPI & A/P Imaging: CXR portable:No results found for this or any previous visit. CXR (2V): No results found for this or any previous visit. CT Chest: No results found for this or any previous visit. CTA Chest: No results found for this or any previous visit. Other Studies: Reviewed and as per electronic record. CxR/CT images personally reviewed by me when available; salient findings summarized in A/P. PFT's: documented in this [facility]02-22-2023 [facility]08-06-2021 NoteHNO ID: [id number] Author: Yuniel Ferguson APRN.SRINATH Service: ? Author Type: Nurse Practitioner Type: Progress Notes Filed: 12/22/2020 8:10 PM Note Text: Visit Date: December 22, 2020 Patient Name: Ms.Debra Hernan Porter Date of : 1965 MRN/E #: [id number] Chief Complaint Patient presents with: Dental Problem: [...] Follow up if signs of infection worsen Yuniel Workman, [employer]EXECUTIVE VP Discussed above plan with patient. Pt agreeable with above plan.[facility]* Diagnosis Onset Date Resolution Status Hypertension chronic Palpitations chronic Shortness of breath chronic Tobacco abuse [facility] Work Phone: Evaluation note* Diagnosis Onset Date Resolution Status Hypertension chronic Palpitations chronic Shortness of breath chronic Tobacco abuse chronic COPD (chronic obstructive pulmonary disease) chronic Hypertension chronic Palpitations [facility] Work Phone: Evaluation note* Diagnosis Onset Date Resolution Status Cellulitis of right ankle ac [place] Cellulitis of right foot acu te Right groin hernia acute Tobacco abuse, in remission acute Hypertension chronic Wound of right foot chronic Dyspnea on exertion acute History of COVID-19 acute COPD (chronic obstructive pulmonary disease) [facility] Work Phone: Evaluation note* Diagnosis Onset Date Resolution Status Right groin hernia acute Tobacco abuse, in remission acute Hypertension chronic Wound of right foot chronic History of COVID-19 acute COPD (chronic obstructive pulmonary disease) chronic Dyspnea on exertion chronic Abnormal urine finding acute Anxiety acute Panic attack acute COPD (chronic obstructive pulmonary disease) chronic UTI (urinary tract infection) acute COPD (chronic obstructive pulmonary disease) chronic Dyspnea on exertion chronic RLQ abdominal pain [facility] Work Phone: Evaluation note* Diagnosis Onset Date Resolution Status History of COVID-19 acute COPD (chronic obstructive pulmonary disease) chronic Dyspnea on exertion chronic Abnormal urine finding acute Anxiety acute Panic attack acute COPD (chronic obstructive pulmonary disease) chronic UTI (urinary tract infection) acute COPD (chronic obstructive pulmonary disease) chronic Dyspnea on exertion chronic RLQ abdominal pain [facility] Work Phone: Evaluation note* Diagnosis Chronic obstructive pulmonary disease, unspecified COPD type (HCC)- Primary Dyspnea on exertion Other dyspnea and respiratory abnormality Former smoker Personal history of tobacco use, presenting hazards to health Screening for lung cancer documented [facility] this encounter [facility] noteNo assessment information availableWSouthwest General [facility] Center Work Phone: Hospital Discharge instructionsAmbulatory Orders* Dermatology Location: None [facility] Work Phone: Instructions* Attachments The following attachments cannot be sent through Care Everywhere. * Pneumococcal Conjugate Vaccine (20-Valent), ADULT (Nepali) documented in this [facility] for referral (narrative)No reason for referral information availableWSouthwest General Health Center Work Phone: Summary Purpose Family History No Family History Records Found Relationship Condition Age at Onset Recorded Date/T maia mother Cerebrovascular accident (CVA) Unknown Advance Directives No Advanced Directives Records Found Advance Directive Response Recorded Date/ Time Living Will No March 26 3:01pm Power of Vice President Underwriting No March 26, 2022 3:01pm Advance Directive Response Recorded Date/ Time Living Will No June 02 11:22pm Power of Vice President Underwriting No June 02, 2023 11:22pm Advance Directive Response Recorded Date/ Time Advance Directives on File No Decem 2023 3:20pm Living Will No April 29 3:20pm Do you have a Healthcare Power of Vice President Underwriting? No April 29, 2024 3:20pm Living Will No June 03 12:22am Do you have a Healthcare Power of Vice President Underwriting? No June 03, 2023 12:22am Advance Directive Response Recorded Date/ Time Living Will No June 03 12:22am Do you have a Healthcare Power of Vice President Underwriting? No June 03, 2023 12:22am Chief Complaint and Reason for Visit Chief Complaint Concerns of heart is sues SOB Shortness of breath Reason for Visit Hypertension Palpitations Shortness of breath Tobacco abuse Chief Complaint Concerns of heart is sues SOB Shortness of breath 1 M FU HEAD INJURY Reason for Visit Hypertension Palpitations Shortness of breath Tobacco abuse COPD (chronic obstructive pulmonary disease) Hypertension Palpitations Chief Complaint EORDER RIGHT FOOT PAIN/POST INJURY 1 MONTH PRIOR 3 M FU SHORTNESS OF BREATH WITH EXURSION sob Reason for Visit Cellulitis of right ankle Cellulitis of right foot Right groin hernia Tobacco abuse, in remission Hypertension Wound of right foot Dyspnea on exertion History of COVID-19 COPD (chronic obstructive pulmonary disease) Chief Complaint 3 M FU SHORTNESS OF BREATH WITH EXURSION sob CONCERN FOR pneumonia TROUBLE BREATHING Reason for Visit Right groin hernia Tobacco abuse, in remission Hypertension Wound of right foot History of COVID-19 COPD (chronic obstructive pulmonary disease) Dyspnea on exertion Abnormal urine finding Anxiety Panic attack COPD (chronic obstructive pulmonary disease) UTI (urinary tract infection) COPD (chronic obstructive pulmonary disease) Dyspnea on exertion RLQ abdominal pain Chief Complaint SHORTNESS OF BREATH WITH EXURSION sob CONCERN FOR pneumonia TROUBLE BREATHING CHRONIC OBSTRUCTIVE Reason for Visit History of COVID-19 COPD (chronic obstructive pulmonary disease) Dyspnea on exertion Abnormal urine finding Anxiety Panic attack COPD (chronic obstructive pulmonary disease) UTI (urinary tract infection) COPD (chronic obstructive pulmonary disease) Dyspnea on exertion RLQ abdominal pain Chief Complaint SHORTNESS OF BREATH WITH EXURSION sob CONCERN FOR pneumonia TROUBLE BREATHING CHRONIC OBSTRUCTIVE R10.31 Right lower quadrant pain DYSPNEA Reason for Visit History of COVID-19 COPD (chronic obstructive pulmonary disease) Dyspnea on exertion Abnormal urine finding Anxiety Panic attack COPD (chronic obstructive pulmonary disease) UTI (urinary tract infection) COPD (chronic obstructive pulmonary disease) Dyspnea on exertion RLQ abdominal pain Chief Complaint Admit Date COPD Gold II Moderate April 29 2:02pm PULMONARY NODULE June 11, 2024 2 :02pm COPD Gold II: Moderate June 14 1:00pm COPD Gold II: Moderate July 12 1:00pm COPD Gold II: Moderate August 16, 2024 1:00pm Chief Complaint Admit Date COPD Gold II: Moderate July 12 1:00pm COPD Gold II: Moderate August 16, 2024 1:00pm 3 m fu August 17, 2024 2:25 pm ACUTE - MED REFILLS September 02, 2024 2:0 8pm COPD Gold II: Moderate September 13, 2024 1:00pm COPD Gold II: Moderate September 17, 2024 8:1 7am Reason for Visit Admit Date Multiple pulmonary nodules August 17 2:25pm COPD (chronic obstructive pulmonary dise ase) August 17, 2024 2:25pm Nicotine dependence, cigarettes, in chip ssion August 17, 2024 2:25pm Right tennis elbow September 02, 2024 2:0 8pm Anxiety and depression September 02, 2024 2:08pm Hypertension September 02, 2024 2:0 8pm Chief Complaint Admit Date ACUTE - MED REFILLS September 02, 2024 2:0 8pm COPD Gold II: Moderate September 13, 2024 1:00pm COPD Gold II: Moderate September 17, 2024 8:1 7am 3 M FU December 23, 2024 1:3 3pm Reason for Visit Admit Date Right tennis elbow September 02, 2024 2:0 8pm Anxiety and depression September 02, 2024 2:08pm Hypertension September 02, 2024 2:0 8pm Chief Complaint Admit Date 3 M FU December 23, 2024 1:3 3pm NOG NODULES 4-6MM SMOKER QUIT 2022 Augus t 2024 4:01pm Reason for Visit Admit Date Cellulitis December 23, 2024 1:3 3pm Blistering eruption December 23, 2024 1:3 3pm Dermatitis December 23, 2024 1:3 3pm Hypertension December 23, 2024 1:3 3pm Ulcer of right lower extremity with fat layer exposed December 23, 2024 1:33pm Reason for Referral Specialty Diagnoses / Procedures Referred By Shawn coe Referred To Contact Juvenal Syed MD [address] [place] [address] Referral ID Status Reason Start Date Expiration Date V isits Requested Visits Authorized [id number] Pending Review 1 1 Specialty Diagnoses / Procedures Referred By Shawn coe Referred To Contact Cardiac Rehabilitation / Cardiology Diagnoses Chronic obstructive pulmonary disease, unspecified COPD type (HCC) Procedures [place] OFFICE/OUTPATIENT NEW HIGH MDM 60 MINUTES Juvenal Syed MD [address] [place] [address] Ach [facility] Card/Pulm Rehab [address] [place] [address] Referral ID Status Reason Start Date Expiration Date Visits Requested Visits Authorized [id number] Pending Review Specialty Services Required 08/28/2023 08/27/2024 1 1 Additional Source Comments INFORMATION SOURCE (unrecogn ized section and content) DATE CREATED AUTHOR 11/07/2017 [facility] ([place]) DATE CREATED AUTHOR AUTHOR'S ORGANIZ ATION 11/12/2017 [facility] DATE CREATED AUTHOR AUTHOR'S ORGANIZ ATION 12/11/2019 [facility] DATE CREATED AUTHOR AUTHOR'S ORGANIZ ATION 02/18/2020 [facility] DATE CREATED AUTHOR AUTHOR'S ORGANIZ ATION 06/22/2021 [facility] DATE CREATED AUTHOR AUTHOR'S ORGANIZ ATION 09/18/2023 [facility] DATE CREATED AUTHOR AUTHOR'S ORGANIZ ATION 11/08/2024 [facility] DATE CREATED AUTHOR AUTHOR'S ORGANIZ ATION 03/13/2025 [facility] Teams (unrecognized sec tion and content) Team Status: Active Member Role Status Dates No Primary Care Physician Family Provider Active Dr. Rowdy Jiang MD Primary Care Provider Active Team Status: Inactive Member Role Status Dates Dr. Rowdy Jiang MD Primary Care P rovider, Attending Provider, Referring Provider Active Team Status: Active Member Role Status Dates Dr. Rowdy Jiang MD Primary Care P rovider, Referring Provider, Other Provider Active Dr. Ortega Montez DO Attending Provider Active Team Status: Inactive Member Role Status Dates Dr. Rowdy Jiang MD Primary Care Provider Active Ed Physician Provider Emergency Provider Active Team Status: Inactive Member Role Status Dates Dr. Rowdy Jiang MD Primary Care Provider, Refer ring Provider Active Rolando MARY PA Attending Provider Active Team Status: Inactive Member Role Status Dates Dr. Rowdy Jiang MD Primary Care Provider Active Rolando MARY PA Attending Provider, Referring Pr ovider Active Team Status: Inactive Member Role Status Dates Dr. Rowdy Jiang MD Primary Care Provider Active Dr. Kel Hutson DO Emergency Provider Active Team Status: Inactive Member Role Status Dates Dr. Rowdy Jiang MD Primary Care Provider, Refer ring Provider Active Franco MARY PA Attending Provider Active Team Status: Inactive Member Role Status Dates Dr. Rowdy Jiang MD Primary Care Provider Active Dr. Kel Hutson DO Attending Provider, Emergency Pr ovider Active Team Status: Inactive Member Role Status Dates Dr. Rowdy Jiang MD Primary Care Provider Active Franco MARY PA Attending Provider Active Team Status: Active Member Role Status Dates Dr. Rowdy Jiang MD Primary Care Provider, Atten ding Provider Active Team Status: Inactive Member Role Status Dates Dr. Rowdy Jiang MD Primary Care Provider, Atten ding Provider Active Team Status: Active Member Role Status Dates Dr. Rowdy Jiang MD Primary Care Provider Active Dr. Yuly Pandey MD Attending Provider Active Team Status: Active Member Role Status Dates Dr. Rowdy Jiang MD Primary Care P rovider, Attending Provider, Referring Provider Active Team Status: Active Member Role Status Dates Dr. Rowdy Jiang MD Primary Care Provider Active Team Status: Inactive Member Role Status Dates Dr. Rowdy Jiang MD Primary Care Provider Active Start: April 29, 2024 End: April 29, 2024 Dr. Ortega Montez DO Attending Provider Active S tart: April 29, 2024 End: April 29, 2024 Dr. Ortega Montez DO Referring Provider Active S tart: April 29, 2024 End: April 29, 2024 Team Status: Inactive Member Role Status Dates Dr. Rowdy Jiang MD Primary Care Provider Active Start: June 11, 2024 End: June 11, 2024 Jamee Hickey STRIKE OPERATIONS OFFICER, STRIKE OPERATIONS OFFICER-C Attending Provider Active Start: June 11, 2024 End: June 11, 2024 Jamee Hickey STRIKE OPERATIONS OFFICER, STRIKE OPERATIONS OFFICER-C Referring Provider Active Start: June 11, 2024 End: June 11, 2024 Team Status: Inactive Member Role Status Dates Dr. Rowdy Jiang MD Primary Care Provider Active Start: June 14, 2024 End: June 18, 2024 Dr. Ortega Montez DO Attending Provider Active S tart: June 14, 2024 End: June 18, 2024 Dr. Ortega Montez DO Referring Provider Active S tart: June 14, 2024 End: June 18, 2024 Team Status: Inactive Member Role Status Dates Dr. Rowdy Jiang MD Primary Care Provider Active Start: July 12, 2024 End: July 16, 2024 Dr. Ortega Montez DO Attending Provider Active S tart: July 12, 2024 End: July 16, 2024 Dr. Ortega Montez DO Referring Provider Active S tart: July 12, 2024 End: July 16, 2024 Team Status: Inactive Member Role Status Dates Dr. Rowdy Jiang MD Primary Care Provider Active Start: August 16, 2024 End: August 16, 2024 Dr. Ortega Montez DO Attending Provider Active S tart: August 16, 2024 End: August 16, 2024 Dr. Ortega Montez DO Referring Provider Active S tart: August 16, 2024 End: August 16, 2024 Team Status: Inactive Member Role Status Dates Dr. Rowdy Jiang MD Primary Care Provider Active Start: August 17, 2024 End: August 17, 2024 Dr. Rowdy Jiang MD Referring Provider Active Start: August 17, 2024 End: August 17, 2024 Jamee Hickey STRIKE OPERATIONS OFFICER, STRIKE OPERATIONS OFFICER-C Attending Provider Active Start: August 17, 2024 End: August 17, 2024 Team Status: Inactive Member Role Status Dates Dr. Rowdy Jiang MD Primary Care Provider Active Start: September 02, 2024 End: September 02, 2024 Dr. Rowdy Jiang MD Referring Provider Active Start: September 02, 2024 End: September 02, 2024 USMAN Bishop Attending Provider Active St art: September 02, 2024 End: September 02, 2024 Team Status: Inactive Member Role Status Dates Dr. Rowdy Jiang MD Primary Care Provider Active Start: September 13, 2024 End: September 15, 2024 Dr. Ortega Montez DO Attending Provider Active S tart: September 13, 2024 End: September 15, 2024 Dr. Ortega Montez DO Referring Provider Active S tart: September 13, 2024 End: September 15, 2024 Team Status: Inactive Member Role Status Dates Dr. Rowdy Jiang MD Primary Care Provider Active Start: September 17, 2024 End: October 16, 2024 Dr. Ortega Montez DO Attending Provider Active S tart: September 17, 2024 End: October 16, 2024 Dr. Ortega Montez DO Referring Provider Active S tart: September 17, 2024 End: October 16, 2024 Team Status: Active Member Role/Relationship Status Dates Dr. Rowdy Jiang MD Primary Care Provider Active Team Status: Inactive Member Role/Relationship Status Dates Dr. Rowdy Jiang MD Primary Care Provider Active Start: September 02, 2024 End: September 02, 2024 Dr. Rowdy Jiang MD Referring Provider Active Start: September 02, 2024 End: September 02, 2024 USMAN Bishop Attending Provider Active St art: September 02, 2024 End: September 02, 2024 Team Status: Inactive Member Role/Relationship Status Dates Dr. Rowdy Jiang MD Primary Care Provider Active Start: September 13, 2024 End: September 15, 2024 Dr. Ortega Montez , Attending Provider Active S tart: September 13, 2024 End: September 15, 2024 Dr. Ortega Montez , Referring Provider Active S tart: September 13, 2024 End: September 15, 2024 Team Status: Inactive Member Role/Relationship Status Dates Dr. Rowdy Jiang MD Primary Care Provider Active Start: September 17, 2024 End: October 16, 2024 Dr. Ortega Montez , Attending Provider Active S tart: September 17, 2024 End: October 16, 2024 Dr. Ortega Montez , Referring Provider Active S tart: September 17, 2024 End: October 16, 2024 Team Status: Inactive Member Role/Relationship Status Dates Dr. Rowdy Jiang MD Primary Care Provider Active Start: December 23, 2024 End: December 23, 2024 Dr. Rowdy Jiang MD Attending Provider Active Start: December 23, 2024 End: December 23, 2024 Dr. Rowdy Jiang MD Referring Provider Active Start: December 23, 2024 End: December 23, 2024 Team Status: Inactive Member Role/Relationship Status Dates Dr. Rowdy Jiang MD Primary Care Provider Active Start: December 23, 2024 End: December 23, 2024 Dr. Rowdy Jiang MD Attending Provider Active Start: December 23, 2024 End: December 23, 2024 Dr. Rowdy Jiang MD Referring Provider Active Start: December 23, 2024 End: December 23, 2024 Team Status: Inactive Member Role/Relationship Status Dates Dr. Rowdy Jiang MD Primary Care Provider Active Start: January 12, 2025 End: January 12, 2025 Jamee Hickey STRIKE OPERATIONS OFFICER, STRIKE OPERATIONS OFFICER-C Attending Provider Active Start: January 12, 2025 End: January 12, 2025 Jamee Hickey STRIKE OPERATIONS OFFICER, STRIKE OPERATIONS OFFICER-C Referring Provider Active Start: January 12, 2025 End: January 12, 2025 Goals (unrecognized section and content) Goals may be documented in a n alternate sectionGoals may be documented in an alternate sectionGoals may be documented in an alternate sectionGoals may be documented in an alternate sectionGoals may be documented in an alternate sectionGoals may be documented in an alternate sectionGoals may be documented in an alternate sectionGoals may be documented in an alternate sectionGoals may be documented in an alternate sectionGoals may be documented in an alternate sectionGoals may be documented in an alternate sectionGoals may be documented in an alternate sectionGoals may be documented in an alternate section Reason for Visit (unrecogniz ed section and content) Reason Comments New Patient Pt says she has a hx of COPD, but it was under control and she wasn't having any concerns. She says she was dx with Covid in April and since then has been having breathing issues. Shortness of Breath Reason Onset Date Comments Prior Authorization 09/09/2023 Fluticasone- Umeclidin-Vilant (Trelegy Ellipta) [id number] MCG/ACT aerosol powder FOR RECORDS PERTAINING TO PATIENTS WHO ARE [...] BE BASED ON THE PRIMARY CLINICAL RECORDS. [employer] provides no warranty or guarantee of the accuracy or completeness of information in this document.
[2025-04-24 16:34] LABS: Anion Gap 14 (5-15); BUN 12 mg/dL (4-19); BUN/Creat Ratio 16.2 RATIO (10-20); Calcium,Total 9.4 mg/dL (7.6-11.0); Carbon Dioxide 21.0 mmol/L (21.0-32.0); Chloride 99 mmol/L (98-108); Estimated Creatinine Clearance 88.76 ml/min (50-250); Glucose 123 mg/dL (70-99); Potassium 3.9 mmol/L (3.3-5.1)
[2025-04-24 17:00] VITALS: BP 128/84; PULSE 97; RESP 13; TEMP 37.3; O2SAT 99
[2025-04-24 18:27] VITALS: BP 122/78; PULSE 64; RESP 18; TEMP 37.1; O2SAT 99
== END 2025-04-24 18:33 | disposition home or self-care (01) ==
PROVIDERS: Emergency Provider Surgery; PCP Internal Medicine; Visit Provider Surgery
DX: R06.02 Shortness of breath (principal); J44.1 Chronic obstructive pulmonary disease with (acute) exacerbation; R11.2 Nausea with vomiting, unspecified; Z90.710 Acquired absence of both cervix and uterus; Z87.891 Personal history of nicotine dependence; I12.9 Hypertensive chronic kidney disease with stage 1 through stage 4 chronic kidney disease, or unspecified chronic kidney disease; N18.9 Chronic kidney disease, unspecified; Z79.899 Other long term (current) drug therapy; F41.8 Other specified anxiety disorders; Z79.51 Long term (current) use of inhaled steroids
CPT/HCPCS: 71046; 80048; 85025; 87631; 93005; 94640; 96361; 96374; 99284; J2405